=== PATIENT | male | born 1965 | race Caucasian/White ===

== ENCOUNTER 2018-05-19 20:02 | Observation (INO) | payer MEDICAID ==
[2018-05-19] MEDS ORDERED: METHYLPREDNISOLONE 125 MG INJ ONE (20:44)
[2018-05-19] MEDS ORDERED: ALBUTEROL 2.5 MG/3 ML NEB SOL ONE ×2 (20:44→23:03)
[2018-05-19] MEDS ORDERED: IPRATROPIUM BROM 0.5MG/2.5ML ONE (20:44)
[2018-05-19] MEDS ORDERED: Levofloxacin500mg IV 500 MG/100 ML BAG IV ONE (20:45)
[2018-05-19 21:04] LABS: Absolute Lymphocytes (CBC) 2.8 K/uL (0.7-4.9); Absolute Monocytes 0.7 K/uL (0.1-1.3); Absolute Neutrophil 4.7 K/uL (1.8-8.0); Basophils % 1.1 % (0-1.3); Eosinophils % 1.8 % (0-4.4); Hematocrit 42.5 % (39.6-49.0); Lymphocytes % 33.2 % (15.3-44.8); MCH 32.4 pg (27.0-35.0); MCV 94.4 fL (80-100); MPV 8.6 fL (7.6-11.3); Monocytes % 8.4 % (3.3-12.3); RBC Red Blood Cell Count 4.51 M/uL (4.33-5.43)
[2018-05-19 21:07] LABS: Protime INR 0.94
--- NOTE | 2018-05-19 21:23 | RAD REPORT ---
EXAM DESCRIPTION: RAD - Chest Single View - 05/19/2018 8:41 pm CLINICAL HISTORY: Cough, COPD COMPARISON: December 2016 TECHNIQUE: AP portable chest image was obtained 2037 hours . FINDINGS: No peripheral mass or consolidation. Granulomatous calcifications are present in the upper left lung field. Lung apices showed relative hyper lucencies suspicious for emphysema. Heart and vas culature are normal. No measurable pleural effusion and no pneumothorax. No acute bony abnormality se en. No acute aortic findings suspected. IMPRESSION: No acute cardiopulmonary process. Suspected emphysema change in each upper lung field.
[2018-05-19 21:25] LABS: ALT/SGPT 29 U/L (12-78); AST/SGOT 20 U/L (15-37); Alkaline Phosphatase 65 U/L (45-117); BUN Blood Urea Nitrogen 10 mg/dL (7-18); Bicarbonate 22 mmol/L (21-32); Bilirubin Direct < 0.1 mg/dL (0-0.2); Bilirubin Total 0.2 mg/dL (0.2-1.0); Glucose Level 94 mg/dL (74-106); Lipase 110 U/L (73-393); Magnesium 2.5 mg/dL (1.8-2.4); NT PRO-BNP 2860 pg/mL (<125); Potassium 3.8 mmol/L (3.5-5.1); Protein, Total 8.1 g/dL (6.4-8.2); Sodium Level 141 mmol/L (136-145); Troponin (Emerg Dept Use Only) < 0.02 ng/mL (0.0-0.045)
--- NOTE | 2018-05-19 22:21 | ER ---
Nurse's Notes [facility] Name: Roby Ortiz Age: 53 yrs Sex: Male : 1965 Arrival Date: 05/19/2018 Time: 20:03 Bed 14 Private MD: Diagnosis: Chest pain, unspecified;Chronic obstructive pulmonary disease with (acute) exacerbation Presentation: 05/19 20:05 Presenting complaint: Significant other states: Shortness of breath for the past 3 aj1 days. It started getting worse yesterday morning. States that he has been out of his albuterol for the past 5 days and now its starting to catch up with him, and now he is starting to have chest pain as well. Reports productive cough for the past 4 days, denies fever. Transition of care: patient was not received from another setting of care. Onset of symptoms was May 17, 2018. Risk Assessment: Do you want to hurt yourself or someone else? Patient reports no desire to harm self or others. Initial Sepsis Screen: Does the patient meet any 2 criteria? No. Patient's initial sepsis screen is negative. Does the patient have a suspected source of infection? No. Patient's initial sepsis screen is negative. Care prior to arrival: None. 20:05 Method Of Arrival: Wheelchair aj1 20:05 Acuity: ELAINE 3 aj1 Triage Assessment: 20:10 General: Appears in no apparent distress. uncomfortable, Behavior is cooperative, aj1 anxious. Pain: Complains of pain in chest Pain currently is 7 out of 10 on a pain scale. Neuro: Level of Consciousness is awake, alert, obeys commands. Cardiovascular: Reports chest pain, shortness of breath, Patient's skin is warm and dry. Respiratory: Airway is patent Respiratory effort is even, unlabored, Respiratory pattern is regular, symmetrical. Historical: - Allergies: 20:10 PENICILLINS; aj1 - Home Meds: 20:10 Lisinopril Oral [Active]; albuterol inhaler [Active]; Prednisone Oral [Active]; aspirin aj1 81 mg Oral chew 1 tab once daily [Active]; Benicar 5 mg Oral tab 2 tabs once daily [Active]; - PMHx: 20:10 COPD; Hypertension; Myocardial infarction; aj1 - Immunization history:: Flu vaccine is up to date. - Social history:: Smoking status: Patient/guardian denies using tobacco, Patient states that quit smoking but he has been hanging around people who are smoking. - Ebola Screening: : Patient denies travel to an Ebola-affected area in the 21 days before illness onset. - Family history:: not pertinent. Screenin:10 Abuse screen: Denies threats or abuse. Nutritional screening: No deficits noted. jb4 Tuberculosis screening: No symptoms or risk factors identified. Fall Risk None identified. Assessment: 20:10 General: Appears in no apparent distress. comfortable, Behavior is calm, cooperative, jb4 appropriate for age. Pain: Complains of pain in chest Pain does not radiate. Pain currently is 4 out of 10 on a pain scale. at worst was 5 out of 10 on a pain scale. Pain began 2-3 days ago. Neuro: Level of Consciousness is awake, alert, obeys commands, Oriented to person, place, time, situation. Cardiovascular: Heart tones S1 S2 present Patient's skin is warm and dry. Respiratory: Airway is patent Respiratory effort is even, labored, Respiratory pattern is regular, symmetrical, Breath sounds are diminished bilaterally. GI: No signs and/or symptoms were reported involving the gastrointestinal system. : No signs and/or symptoms were reported regarding the genitourinary system. EENT: No signs and/or symptoms were reported regarding the EENT system. Derm: Skin is intact, Skin is pink, warm \T\ dry. Musculoskeletal: Circulation, motion, and sensation intact. 21:00 Reassessment: Patient appears in no apparent distress at this time. Patient and/or jb4 family updated on plan of care and expected duration. Pain level reassessed. Patient is alert, oriented x 3, equal unlabored respirations, skin warm/dry/pink. 22:00 Reassessment: Patient appears in no apparent distress at this time. Patient and/or jb4 family updated on plan of care and expected duration. Pain level reassessed. Patient is alert, oriented x 3, equal unlabored respirations, skin warm/dry/pink. Patient states feeling better. 23:00 Reassessment: Patient appears in no apparent distress at this time. Patient and/or jb4 family updated on plan of care and expected duration. Pain level reassessed. Patient is alert, oriented x 3, equal unlabored respirations, skin warm/dry/pink. Patient states feeling better. 05/20 00:10 Reassessment: Patient appears in no apparent distress at this time. No changes from jb4 previously documented assessment. Patient and/or family updated on plan of care and expected duration. Pain level reassessed. Patient is alert, oriented x 3, equal unlabored respirations, skin warm/dry/pink. 00:19 General: Appears in no apparent distress. comfortable. Respiratory: Airway is patent jb4 Respiratory effort is even, unlabored, Respiratory pattern is regular, symmetrical, Breath sounds are clear bilaterally. 00:55 Reassessment: Patient appears in no apparent distress at this time. Patient and/or jb4 family updated on plan of care and expected duration. Pain level reassessed. Patient is alert, oriented x 3, equal unlabored respirations, skin warm/dry/pink. Patient states feeling better. Vital Signs: 05/19 20:10 BP 179 / 100; Pulse 102; Resp 20; Temp 97.0; Pulse Ox 99% on R/A; Weight 64.86 kg (R); aj1 Height 5 ft. 7 in. (170.18 cm) (R); Pain 7/10; 21:00 BP 141 / 94; Pulse 89; Resp 18; Pulse Ox 100% ; jb4 22:00 BP 169 / 98; Pulse 98; Resp 18; Pulse Ox 97% on R/A; jb4 23:00 BP 160 / 96; Pulse 99; Resp 18; Pulse Ox 98% on R/A; jb4 05/20 00:10 BP 161 / 92; Pulse 97; Resp 14; Pulse Ox 97% on R/A; jb4 00:30 BP 173 / 98; Pulse 89; Resp 18; Pulse Ox 98% on R/A; jb4 01:00 BP 168 / 98; Pulse 89; Resp 16; Pulse Ox 98% ; jb4 05/19 20:10 Body Mass Index 22.40 (64.86 kg, 170.18 cm) aj ED Course: 05/19 20:03 Patient arrived in ED. ds1 20:08 Triage completed. aj1 20:10 Arm band placed on Patient placed in an exam room. aj1 20:10 Patient has correct armband on for positive identification. Bed in low position. Call [facility] light in reach. Side rails up X 1. pit operator on. Pulse ox on. NIBP on. 20:10 Patient maintains SpO2 saturation greater than 95% on room air. jb4 20:20 Jovi Davis MD is Attending Physician. [facility] 20:26 Duke Brown, ROULA is Primary Nurse. jb4 20:40 X-ray completed. Portable x-ray completed in exam room. Patient tolerated procedure sg4 well. 20:41 XRAY Chest (1 view) In Process Unspecified. EDMS 21:34 EKG done, by ED staff, reviewed by Jovi Davis MD. ds4 22:06 Urine Culture Sent. ds4 22:20 Aby Mckeon MD is Hospitalizing Provider. [facility] 05/20 01:20 No provider procedures requiring assistance completed. Patient admitted, IV remains in jb4 place. Administered Medications: 05/19 21:04 Drug: Albuterol - atroVENT (3:1) (2.5 mg - 0.5 mg) 3 ml Route: Nebulizer; jb4 23:16 Follow up: Response: No adverse reaction jb4 21:04 Drug: SOLU-Medrol 125 mg Route: IVP; Site: right antecubital; jb4 23:19 Follow up: Response: No adverse reaction jb4 21:04 Drug: levofloxacin 500 mg Volume: 100 ml; Route: IVPB; Infused Over: 60 mins; Site: jb4 right antecubital; 22:05 Follow up: Response: No adverse reaction; IV Status: Completed infusion [facility] 22:13 CANCELLED (Duplicate Order): Albuterol 5 mg Inhalation once [facility] 22:13 CANCELLED (Duplicate Order): Lopressor (metoprolol TARTRATE) 50 mg PO once [facility] 23:00 Drug: predniSONE 40 mg Route: PO; jb4 23:42 Follow up: Response: No adverse reaction jb4 23:00 Drug: Albuterol 5 mg Route: Inhalation; jb4 23:42 Follow up: Response: No adverse reaction jb4 23:00 Drug: Aspirin 162 mg Route: PO; jb4 23:42 Follow up: Response: No adverse reaction jb4 23:00 Drug: Lopressor (metoprolol TARTRATE) 50 mg Route: PO; jb4 23:41 Follow up: Response: No adverse reaction jb4 23:00 Drug: Lovenox 1 mg/kg Route: Sub-Q; Site: right lower abdomen; jb4 23:41 Follow up: Response: No adverse reaction 4 23:00 Drug: Pepcid 20 mg Route: IVP; Site: right antecubital; jb4 23:41 Follow up: Response: No adverse reaction jb4 Outcome: 22:21 Decision to Hospitalize by Provider. chantal 05/20 01:20 Admitted to Tele accompanied by nurse, via wheelchair, room 427, with chart, Report jb4 called to ROULA Lacey Condition: stable Instructed on the need for admit, Demonstrated understanding of instructions. 01:21 Patient left the ED. jb4 Signatures: Dispatcher [employer] Viki Espinoza RN RN Jovi Shea MD MD cha Sanford, Demi ds1 Tunde Mcmillan ds4 Duke Brown RN RN jb4 Trena Douglas sg4 Corrections: (The following items were deleted from the chart) 05/19 23: 22:10 General: Appears in no apparent distress. comfortable, Behavior is calm, jb4 cooperative, appropriate for age, jb4 : 22:10 Pain: Complains of pain in chest Pain does not radiate. Pain currently is 4 out jb4 of 10 on a pain scale. at worst was 5 out of 10 on a pain scale. Pain began 2-3 days ago. jb4 : 22:10 Neuro: Level of Consciousness is awake, alert, obeys commands, Oriented to jb4 person, place, time, situation, jb4 : 22:10 Cardiovascular: Heart tones S1 S2 present Patient's skin is warm and dry. jb4 jb4 : 22:10 Respiratory: Airway is patent Respiratory effort is even, labored, Respiratory jb4 pattern is regular, symmetrical, Breath sounds are diminished bilaterally. jb4 : 22:10 GI: No signs and/or symptoms were reported involving the gastrointestinal system. jb4 jb4 : 22:10 : No signs and/or symptoms were reported regarding the genitourinary system. jb4jb4 : 22:10 EENT: No signs and/or symptoms were reported regarding the EENT system. jb4 jb4 :25 22:10 Derm: Skin is intact, Skin is pink, warm \T\ dry. jb4 jb4 :25 22:10 Musculoskeletal: Circulation, motion, and sensation intact. jb4 jb4
--- NOTE | 2018-05-19 22:22 | EDPHYS ---
Physician Documentation [facility] Name: Roby Ortiz Age: 53 yrs Sex: Male : 1965 Arrival Date: 05/19/2018 Time: 20:03 Bed 14 Private MD: ED Physician Jovi Davis HPI: 05/19 22:14 This 53 yrs old Male presents to ER via Wheelchair with complaints of Chest chantal Pain, Breathing Difficulty. 22:14 This 53 yrs old Male presents to ER via Wheelchair with complaints of Chest chantal Pain, Breathing Difficulty. 22:14 The patient or guardian reports chest pain that is located primarily in the substernal chantal area, anterior chest wall. Onset: just prior to arrival. The pain does not radiate. Associated signs and symptoms: Pertinent positives: cough, shortness of breath. The chest pain is described as a pressure, squeezing. Duration: The patient or guardian reports multiple episodes, with no pattern. Modifying factors: The symptoms are alleviated by nothing. the symptoms are aggravated by nothing. Severity of pain: At its worst the pain was mild in the emergency department the pain has resolved. Historical: - Allergies: 20:10 PENICILLINS; aj1 - Home Meds: 20:10 Lisinopril Oral [Active]; albuterol inhaler [Active]; Prednisone Oral [Active]; aspirin aj1 81 mg Oral chew 1 tab once daily [Active]; Benicar 5 mg Oral tab 2 tabs once daily [Active]; - PMHx: 20:10 COPD; Hypertension; Myocardial infarction; aj1 - Immunization history:: Flu vaccine is up to date. - Social history:: Smoking status: Patient/guardian denies using tobacco, Patient states that quit smoking but he has been hanging around people who are smoking. - Ebola Screening: : Patient denies travel to an Ebola-affected area in the 21 days before illness onset. - Family history:: not pertinent. ROS: 22:14 Constitutional: Negative for fever, chills, and weight loss, Eyes: Negative for injury, chantal pain, redness, and discharge, ENT: Negative for injury, pain, and discharge, Neck: Negative for injury, pain, and swelling, Abdomen/GI: Negative for abdominal pain, nausea, vomiting, diarrhea, and constipation, Back: Negative for injury and pain, : Negative for injury, bleeding, discharge, and swelling, MS/Extremity: Negative for injury and deformity, Skin: Negative for injury, rash, and discoloration, Neuro: Negative for headache, weakness, numbness, tingling, and seizure. 22:14 Cardiovascular: Positive for chest pain. 22:14 Respiratory: Positive for cough, shortness of breath, wheezing, expiratory. Exam: 22:14 Constitutional: This is a well developed, well nourished patient who is awake, alert, chantal and in no acute distress. Head/Face: Normocephalic, atraumatic. Eyes: Pupils equal round and reactive to light, extra-ocular motions intact. Lids and lashes normal. Conjunctiva and sclera are non-icteric and not injected. Cornea within normal limits. Periorbital areas with no swelling, redness, or edema. ENT: Nares patent. No nasal discharge, no septal abnormalities noted. Tympanic membranes are normal and external auditory canals are clear. Oropharynx with no redness, swelling, or masses, exudates, or evidence of obstruction, uvula midline. Mucous membranes moist. Neck: Trachea midline, no thyromegaly or masses palpated, and no cervical lymphadenopathy. Supple, full range of motion without nuchal rigidity, or vertebral point tenderness. No Meningismus. Chest/axilla: Normal chest wall appearance and motion. Nontender with no deformity. No lesions are appreciated. Cardiovascular: Regular rate and rhythm with a normal S1 and S2. No gallops, murmurs, or rubs. Normal PMI, no JVD. No pulse deficits. Abdomen/GI: Soft, non-tender, with normal bowel sounds. No distension or tympany. No guarding or rebound. No evidence of tenderness throughout. Back: No spinal tenderness. No costovertebral tenderness. Full range of motion. Male : Normal genitalia with no discharge or lesions. Skin: Warm, dry with normal turgor. Normal color with no rashes, no lesions, and no evidence of cellulitis. MS/ Extremity: Pulses equal, no cyanosis. Neurovascular intact. Full, normal range of motion. Neuro: Awake and alert, GCS 15, oriented to person, place, time, and situation. Cranial nerves II-XII grossly intact. Motor strength 5/5 in all extremities. Sensory grossly intact. Cerebellar exam normal. Normal gait. Psych: Awake, alert, with orientation to person, place and time. Behavior, mood, and affect are within normal limits. 22:14 Respiratory: the patient does not display signs of respiratory distress, Respirations: normal, no acute changes, prolonged exhalation, that is mild, Breath sounds: rhonchi, that are mild, Respiratory rate: 20 Vital Signs: 20:10 BP 179 / 100; Pulse 102; Resp 20; Temp 97.0; Pulse Ox 99% on R/A; Weight 64.86 kg (R); aj1 Height 5 ft. 7 in. (170.18 cm) (R); Pain 7/10; 21:00 BP 141 / 94; Pulse 89; Resp 18; Pulse Ox 100% ; jb4 22:00 BP 169 / 98; Pulse 98; Resp 18; Pulse Ox 97% on R/A; jb4 23:00 BP 160 / 96; Pulse 99; Resp 18; Pulse Ox 98% on R/A; jb4 05/20 00:10 BP 161 / 92; Pulse 97; Resp 14; Pulse Ox 97% on R/A; jb4 00:30 BP 173 / 98; Pulse 89; Resp 18; Pulse Ox 98% on R/A; jb4 01:00 BP 168 / 98; Pulse 89; Resp 16; Pulse Ox 98% ; jb4 05/19 20:10 Body Mass Index 22.40 (64.86 kg, 170.18 cm) [facility] MDM: 05/19 20:20 Patient medically screened. [facility] 22:19 Data reviewed: vital signs, nurses notes, lab test result(s), EKG, radiologic studies, [facility] CT scan, plain films. 05/19 20:23 Order name: Basic Metabolic Panel; Complete Time: 21:44 chantal 05/19 20:23 Order name: CBC with Diff; Complete Time: 21:44 chantal 05/19 20:23 Order name: LFT's; Complete Time: 21:44 chantal 05/19 20:23 Order name: Magnesium; Complete Time: 21:44 chantal 05/19 20:23 Order name: NT PRO-BNP; Complete Time: 21:44 [facility] 05/19 20:23 Order name: PT-INR; Complete Time: 21:44 [place] 05/19 20:23 Order name: Troponin (emerg Dept Use Only); Complete Time: 21:44 [facility] 05/19 20:23 Order name: XRAY Chest (1 view); Complete Time: 21:44 [facility] 05/19 20:23 Order name: Blood Culture Adult (2) [facility] 05/19 20:23 Order name: Lipase; Complete Time: 21:44 [facility] 05/19 20:24 Order name: Urine Culture [facility] 05/19 22:07 Order name: Urine Dipstick--Ancillary (enter results) ds 05/20 01:17 Order name: Troponin I [facility] 05/19 20:23 Order name: EKG; Complete Time: 20:24 [facility] 05/19 20:23 Order name: Cardiac monitoring; Complete Time: 21:04 [facility] 05/19 20:23 Order name: EKG - Nurse/Tech; Complete Time: 21:05 [facility] 05/19 20:23 Order name: IV Saline Lock; Complete Time: 21:05 [facility] 05/19 20:23 Order name: Labs collected and sent; Complete Time: 21:05 [facility] 05/19 22:24 Order name: CONS Physician Consult [facility] 05/19 20:23 Order name: O2 Per Protocol; Complete Time: 21:05 [facility] 05/19 20:23 Order name: O2 Sat Monitoring; Complete Time: 21:05 [facility] 05/19 20:24 Order name: Urine Dipstick-Ancillary (obtain specimen); Complete Time: 22:06 [facility] Administered Medications: 21:04 Drug: Albuterol - atroVENT (3:1) (2.5 mg - 0.5 mg) 3 ml Route: Nebulizer; jb4 23:16 Follow up: Response: No adverse reaction [facility] 21:04 Drug: SOLU-Medrol 125 mg Route: IVP; Site: right antecubital; jb4 23:19 Follow up: Response: No adverse reaction [facility] 21:04 Drug: levofloxacin 500 mg Volume: 100 ml; Route: IVPB; Infused Over: 60 mins; Site: jb4 right antecubital; 22:05 Follow up: Response: No adverse reaction; IV Status: Completed infusion [facility] 22:13 CANCELLED (Duplicate Order): Albuterol 5 mg Inhalation once [facility] 22:13 CANCELLED (Duplicate Order): Lopressor (metoprolol TARTRATE) 50 mg PO once [facility] 23:00 Drug: predniSONE 40 mg Route: PO; jb4 23:42 Follow up: Response: No adverse reaction [facility] 23:00 Drug: Albuterol 5 mg Route: Inhalation; jb4 23:42 Follow up: Response: No adverse reaction jb4 23:00 Drug: Aspirin 162 mg Route: PO; jb4 23:42 Follow up: Response: No adverse reaction jb4 23:00 Drug: Lopressor (metoprolol TARTRATE) 50 mg Route: PO; jb4 23:41 Follow up: Response: No adverse reaction jb4 23:00 Drug: Lovenox 1 mg/kg Route: Sub-Q; Site: right lower abdomen; jb4 23:41 Follow up: Response: No adverse reaction jb4 23:00 Drug: Pepcid 20 mg Route: IVP; Site: right antecubital; jb4 23:41 Follow up: Response: No adverse reaction jb4 Disposition: 05/19/18 22:21 Hospitalization ordered by Aby Mckeon for Observation. Preliminary diagnosis are Chest pain, unspecified, Chronic obstructive pulmonary disease with (acute) exacerbation. - Bed requested for Telemetry/MedSurg (observation). - Status is Observation. jb4 - Condition is Fair. - Problem is new. - Symptoms have improved. UTI on Admission? No Signatures: Dispatcher [employer] EDMS Viki Lucia RN RN aj1 Jovi Davis MD MD cha Bryson, James, RN RN jb4 Tej Stephenson mw2 Corrections: (The following items were deleted from the chart) 22:13 22:09 Albuterol 5 mg Inhalation once ordered. [facility] 22:13 22:13 Lopressor (metoprolol TARTRATE) 50 mg PO once ordered. [facility] 22:37 22:21 Hospitalization Ordered by Aby Mckeon MD for Observation. Preliminary mw2 diagnosis is Chest pain, unspecified; Chronic obstructive pulmonary disease with (acute) exacerbation. Bed requested for Telemetry/MedSurg (observation). Status is Observation. Condition is Fair. Problem is new. Symptoms have improved. UTI on Admission? No. chantal 05/20 01:21 05/19 22:37 05/19/2018 22:21 Hospitalization Ordered by Aby Mckeon MD for jb4 Observation. Preliminary diagnosis is Chest pain, unspecified; Chronic obstructive pulmonary disease with (acute) exacerbation. Bed requested for Telemetry/MedSurg (observation). Status is Observation. Condition is Fair. Problem is new. Symptoms have improved. UTI on Admission? No. mw2
[2018-05-19 22:25] LABS: Urine Blood NEGATIVE (NEG); Urine Glucose NEGATIVE (NEG); Urine Protein NEGATIVE (NEG); Urine Specific Gravity 1.005 (1.005-1.030); Urine pH 5.5 (5.0-7.0)
[2018-05-19] MEDS ORDERED: METOPROLOL TAR 25 MG TAB ONE (23:03)
[2018-05-19] MEDS ORDERED: ASPIRIN 81 MG CHEWABLE TABLET ONE (23:03)
[2018-05-19] MEDS ORDERED: predniSONE 20 MG TAB ONE (23:03)
[2018-05-19] MEDS ORDERED: FAMOTIDINE 20 MG/2 ML VIAL IV ONE (23:04)
[2018-05-19] MEDS ORDERED: ENOXAPARIN 60 MG/0.6 ML SQ ONE (23:04)
[2018-05-20] MEDS ORDERED: ACETAMINOPHEN 500 MG TAB PO PRN (00:21)
[2018-05-20] MEDS ORDERED: ONDANSETRON 4 MG/2 ML VIAL IV PRN (00:21)
[2018-05-20 01:28] VITALS: BMI 21.4
[2018-05-20] MEDS ORDERED: ALBUTEROL 2.5 MG/3 ML NEB SOL NEB PRN (05:36)
[2018-05-20] MEDS ORDERED: IPRATROPIUM BROM 0.5MG/2.5ML NEB PRN (05:36)
--- NOTE | 2018-05-20 05:59 | P.HP ---
Certification for Inpatient Patient admitted to: Observation With expected LOS: <2 Midnights Practitioner: I am a practitioner with admitting privileges, knowledge of patient current condition, hospital course, and medical plan of care. Services: Services provided to patient in accordance with Admission requirements found in Title 42 Section 412.3 of the Code of Federal Regulations Patient History Date of Service: 05/19/18 Reason for admission: Chest pain, shortness of breath History of Present Illness: Mr Ortiz is a 53-year-old male, with history of COPD, hypertension, CVA, legally blind, who came to ER complaining of progressive shortness of breath for the last 3 days. He stated that has been running out of his inhalers, who was unable to it. He also has been not taking his blood pressure for the last few days. He is complaining of chest pain, in sternal area, burning light, 5/ 10 of intensity, lasting for 7 min. The pain was not associated with nausea, vomiting, or palpitation. Shows no acute changes. Lab work remarkable for normal WBC, patient troponin negative. Patient is also complaining of left hand numbness, associated with left neck pain, which is common go for several months. Allergies No Known Allergies Allergy (Unverified 05/20/18 02:54) Home medications list reviewed: Yes Home Medications: Aspirin [Children's Aspirin] 81 mg PO DAILY 11/20/16 Lisinopril 1 tab PO DAILY 05/20/18 - Past Medical/Surgical History Has patient received pneumonia vaccine in the past: Yes Diabetic: No -: glaucoma -: HTN -: COPD -: Stroke x 4 -: Atrial Fibrillation -: bilateral eye surgery - Family History Mother -: Cancer Notes: Lymphoma, Leukemia Father -: Cancer Notes: Throat - Social History Smoking Status: Former smoker Alcohol use: Yes CD- Drugs: No Caffeine use: Yes Place of Residence: Home Review of Systems 10-point ROS is otherwise unremarkable Physical Examination - Vital Signs Temperature: 98.6 F Blood Pressure: 159/82 Pulse: 84 Respirations: 18 Pulse Ox (%): 96 - Physical Exam General: Alert, In no apparent distress HEENT: Atraumatic, PERRLA, Mucous membr. moist/pink, EOMI, Sclerae nonicteric Neck: Supple, 2+ carotid pulse no bruit, No LAD, Without JVD or thyroid abnormality Respiratory: Diminished, Other (coarse bilateral) Cardiovascular: Regular rate/rhythm, Normal S1 S2 Gastrointestinal: Normal bowel sounds, No tenderness Musculoskeletal: Tenderness (Chest pain tenderness to palpation, similar to complaining pain) Integumentary: No rashes Neurological: Normal speech, Normal strength at 5/5 x4 extr, Normal tone, Normal affect Lymphatics: No axilla or inguinal lymphadenopathy - Studies Laboratory Data (last 24 hrs) 05/19/18 20:40: PT 11.1, INR 0.94 05/19/18 20:40: WBC 8.4, Hgb 14.6, Hct 42.5, Plt Count 304 05/19/18 20:40: Sodium 141, Potassium 3.8, BUN 10, Creatinine 1.00, Glucose 94, Magnesium 2.5 H, Total Bilirubin 0.2, AST 20, ALT 29, Alkaline Phosphatase 65, Lipase 110 Assessment and Plan - Problems (Diagnosis) (1) Hand numbness Current Visit: Yes Status: Acute (2) Chest pain Onset Date: 11/20/16 Current Visit: No Status: Acute Qualifiers: Chest pain type: chest pain on breathing Qualified Code(s): R07.1 - Chest pain on breathing; R07.81 - Pleurodynia (3) Essential (primary) hypertension Onset Date: 11/20/16 Current Visit: No Status: Acute - Plan The patient will be admitted to the hospital due to atypical chest pain, COPD on fixed laceration due to a lack of medication. Chest-x-ray showed not acute abnormality. Will resume breathing treatments, will order serial cardiac enzymes and EKG. Consult Cardiology. Will order C-spine MRI to evaluate his recurrent left hand numbness. - Advance Directives Does patient have a Living Will: Yes Does patient have a Durable POA for Healthcare: Yes - Code Status/Comfort Care Code Status Assessed: Yes Code Status: Full Code
[2018-05-20 06:21] LABS: Urine Appearance CLEAR; Urine Bilirubin NEGATIVE (NEG); Urine Blood NEGATIVE (NEG); Urine Color YELLOW; Urine Glucose NEGATIVE (NEG); Urine Protein TRACE (NEG); Urine Urobilinogen 0.2 mg/dL (0.2-1.0)
[2018-05-20 06:23] LABS: Urine Microscopic Reflex ORDER UMIC
[2018-05-20 06:45] LABS: Urine Bacteria <20 /HPF (NONE SEEN); Urine Culture Reflex Order NOT NEEDED; Urine Mucus 1+ /HPF (NONE SEEN); Urine RBC <5 /HPF (NONE SEEN)
[2018-05-20 06:52] LABS: Potassium 4.5 mmol/L (3.5-5.1)
--- NOTE | 2018-05-20 07:28 | EKG ---
Test Date: 2018-05-19 Test Time: 20:50:14 [employer] Customer Experience Specialist: SIRENA MEASUREMENT RESULTS: Intervals: Rate: 84 CT: 122 QRSD: 96 QT: 388 QTc: 458 [place]: P: 73 CT: 122 QRS: 4 T: 39 INTERPRETIVE STATEMENTS: Normal sinus rhythm Nonspecific T wave abnormality Abnormal ECG Compared to ECG 01/17/2017 15:09:09 T-wave abnormality now present Electronically Signed On 05-20-18 07:27:33 CDT by Omer Braga
[2018-05-20] MEDS: ENOXAPARIN 40 MG/0.4 ML SQ SCH (08:38)
[2018-05-20] MEDS: ASPIRIN 81 MG CHEWABLE TABLET PO SCH (08:42)
--- NOTE | 2018-05-20 08:46 | RAD REPORT ---
EXAM DESCRIPTION: MRI - C Spine W/Wo Cont - 05/20/2018 8:00 am CLINICAL HISTORY: Left upper extremity radiculopathy COMPARISON: None. TECHNIQUE: Sagittal T1-weighted, T2-weighted and T2-FLAIR sequences as well as axial T2 medic sequen ce obtained. Sagittal and axial post contrast T1-weighted images were obtained following 14 ml of Gd contrast material. FINDINGS: Cervical bodies are normal in height. There is a very slight retrolisthesis of C5 on C6. M inimal scattered fatty marrow changes are present. No marrow edema or marrow replacing process. No pa raspinal mass. Cerebellar tonsils and mid-line skull base show no suspicious finding. No significant finding at the C1 and C2 levels. C2-3 level: Midline disc bulge changes attenuate the anterior subarachnoid space. Midline canal diame ter is reduced to 10 mm. There is minimal posterior ligamentous thickening. No foraminal stenosis. C3-4 level: Midline and left parasagittal disc bulge and endplate spurring changes partially attenuat e the anterior subarachnoid space. Midline canal diameter is 10-2011 mm. Left facet hypertrophy brandt es are present. Mild left foraminal bony encroachment. No significant central spinal stenosis. C4-5 level: Minimal disc bulge and endplate spurring partially attenuating the anterior subarachnoid space. Midline canal diameter is 10 mm. No significant foraminal encroachment. C5-6 level: Disc is thinned and desiccated. There is a large left central disc herniation contacting and flattening the cord. Herniated disc material extends above and below the disc level. Disc masses approximately 7 mm CC x 5 mm AP x 10 mm TR. Canal is stenotic to 8 mm. Mild to moderate left foramina l encroachment is present from disc bulge and endplate spurring. Significant right foraminal stenosis is present from uncovertebral joint hypertrophy and right facet hypertrophy. C6-7 level: Disc is thinned and desiccated. Broad-based bulging of disc material with endplate spurri ng across the central canal and into each exit foramen. Anterior subarachnoid space is narrowed. Midl ine canal diameter is 10 mm. Disc bulge and endplate spurring changes cause significant left foramina l stenosis and moderate right foraminal stenosis. C7-T1 level: No significant findings. No cord signal abnormality. No expansile change. No abnormal enhancement on the post-contrast images. IMPRESSION: C5-6 large left-sided disc herniation causing cord flattening and central spinal stenosi s at 8 mm. C5-6 shows up to moderate left foraminal stenosis with even more significant right foraminal stenosis . C6-7 disc bulge and endplate spurring changes along with uncovertebral joint and facet hypertrophy. C anal is 10 mm. There is significant left and moderate right foraminal stenosis. Cervical spondylosis is present from C2- C5 with borderline or mild central spinal stenosis. Foramina l encroachment changes are detailed in the body of the report. Cord is flattened at multiple sites but no true cord signal abnormality and no enhancement abnormalit y.
[2018-05-20] MEDS ORDERED: LISINOPRIL 20 MG TAB PO SCH (09:00)
[2018-05-20] MEDS ORDERED: HYDRALAZINE HCL 20 MG/ML VIAL IV ONE (11:09)
[2018-05-20] MEDS ORDERED: ALBUTEROL 2.5 MG/3 ML NEB SOL IH PRN (13:49)
--- NOTE | 2018-05-20 16:27 | P.PN ---
Subjective Date of Service: 05/20/18 Chief Complaint: Chest pain, shortness of breath Patient seen and examined at bedside. No family at bedside. Case discussed with nursing staff. Patient still complains of left-sided chest pain, and left hand numbness and tingling, though it has improved from admission. Denies any radiation of the pain, any alleviation of our exacerbating factors. Denies any shortness of breath, nausea, vomiting, headache, vision changes, dizziness or lightheadedness. Review of Systems As noted above Physical Examination - Vital Signs Temperature: 99.1 F Blood Pressure: 177/94 Pulse: 89 Respirations: 18 Pulse Ox (%): 100 - Physical Exam General: Alert, In no apparent distress HEENT: Atraumatic, PERRLA, EOMI Neck: Supple, JVD not distended Respiratory: Clear to auscultation bilaterally, Normal air movement Cardiovascular: Regular rate/rhythm, Normal S1 S2 Gastrointestinal: Normal bowel sounds, No tenderness Musculoskeletal: Tenderness (To palpation on left side of the chest (point tenderness)) Integumentary: No rashes Neurological: Normal speech, Normal tone, Normal affect, Abnormal sensation ( Numbness/tingling on wound left upper extremity, starting from rest down to the fingers.) Lymphatics: No axilla or inguinal lymphadenopathy - Studies Laboratory Data (last 24 hrs) 05/19/18 20:40: PT 11.1, INR 0.94 05/19/18 20:40: WBC 8.4, Hgb 14.6, Hct 42.5, Plt Count 304 05/19/18 20:40: Sodium 141, Potassium 3.8, BUN 10, Creatinine 1.00, Glucose 94, Magnesium 2.5 H, Total Bilirubin 0.2, AST 20, ALT 29, Alkaline Phosphatase 65, Lipase 110 Assessment And Plan - Current Problems (Diagnosis) (1) Chest pain Onset Date: 05/20/18 Current Visit: Yes Status: Acute Plan: Patient was admitted for atypical chest pain. Differential diagnosis includes cardiac related versus musculoskeletal. Musculoskeletal pain seems more likely as patient does have point tenderness on physical exam. Continue to trend troponin, EKG Cardiology consulted. Recommendations appreciated (2) Hand numbness Onset Date: 05/20/18 Current Visit: Yes Status: Acute Plan: Patient with consistent hand numbness on the left side. MRI of the C-spine was done seems to have multiple abnormalities on there that could potentially be addressed as an outpatient but as patient also has a history of history of stroke x4, will obtain MRI/MRA of head/neck. (3) Essential (primary) hypertension Onset Date: 11/20/16 Current Visit: No Status: Acute Plan: Patient restarted on lisinopril, which is his home medication. Will add p.r.n. hydralazine if needed. - Plan Pending MRA/MRI of head/neck. If imaging normal, can be discharged home tomorrow.
--- NOTE | 2018-05-20 18:55 | RAD REPORT ---
EXAM DESCRIPTION: MRI - Brain Wo Cont - 05/20/2018 5:42 pm CLINICAL HISTORY: Left arm numbness COMPARISON: 2016 CT TECHNIQUE: Axial, sagittal, and coronal magnetic images of the brain were obtained. Contrast was not requested FINDINGS: No significant abnormal signal is present within the brain. Diffusion-weighted/ADC mapping does not reveal evidence of acute infarction. The ventricles are normal caliber. An extra-axial fluid collection is not present. Abnormal signal within the right lobe likely is a chr onic abnormality The sinuses and mastoids are clear. IMPRESSION: No acute abnormality is displayed
--- NOTE | 2018-05-20 19:03 | RAD REPORT ---
EXAM DESCRIPTION: MRI - MRA Head Wo Cont - 05/20/2018 5:42 pm CLINICAL HISTORY: Left arm numbness COMPARISON: None. TECHNIQUE: Magnetic resonance angiogram of the head was performed. 3D MIPS reconstruction performed FINDINGS: The visualized anterior cerebral, right middle cerebral, posterior cerebral, basilar and d istal internal carotid arteries do not demonstrate a significant stenosis. Left middle cerebral artery does not demonstrate signal. An aneurysm is not seen IMPRESSION: No signal within the left middle cerebral artery. Given that the MRI brain does not demo nstrate an acute abnormality in the left MCA distribution this likely is a chronic occlusion
[2018-05-20] MEDS: LISINOPRIL 20 MG TAB PO SCH (20:23)
[2018-05-21] MEDS: ENOXAPARIN 40 MG/0.4 ML SQ SCH (08:19)
[2018-05-21] MEDS: ASPIRIN 81 MG CHEWABLE TABLET PO SCH (08:19)
[2018-05-21] MEDS: LISINOPRIL 20 MG TAB PO SCH (08:19)
[2018-05-21 16:26] VITALS: TEMP 98.7
[2018-05-21 16:52] VITALS: BP 156/88
[2018-05-21 17:10] VITALS: O2SAT 97
--- NOTE | 2018-05-22 16:46 | DS ---
Date of Discharge: 05/21/2018 Discharge Diagnoses: 1.Left shoulder pain. 2.Left hand numbness. 3.Chest pain, rule out myocardial infarction. Musculoskeletal mostly. 4.Hypertension. 5.History of recurrent cerebrovascular accident. Procedure: Brain MRI done on admission was negative. Cervical spine MRI done on the showed ext ensive abnormalities in C5-C6, left disk herniation, could include flattening and central spinal sten osis at 8 mm. C5-C6 showed moderate left foraminal stenosis with even more significant right foramin al stenosis. C6-C7 showed disk bulge and spurring changes at multiple sites, but no true cord signal abnormalities. MRA done of the brain on the showed no signal within the left middle cerebral artery, which can mean chronic occlusion of the left MCA. History Of Present Illness: Please refer to admission note. Hospital Course: Initially, the patient presented with history of 3 days of shortness of breath and left-sided chest pain, which apparently was later on characterized more like musculoskeletal. In the ER, the patient was evaluated and cardiac enzymes were negative. MRI of the brain was negative as w ell. But given his left arm numbness, he had cervical MRI, which showed some spinal cord flattening and compression. MRA showed no signal at the left middle cerebral artery, which indicated chronic oc clusion. The patient needed Neurology consult, but he did not want to wait until next day and he wan gracie to be discharged. So, I advised him strongly to see Neurology as soon as possible on Wednesday. We will give phone number to call. The patient advised to come back immediately if he is to have any w eakness, lightheaded, headache, blurred vision, numbness in any of his extremities, new numbness or w orsening of his current numbness. He was advised to be on aspirin daily. We will to resume home med ication. He is need to see primary care physician this week. The patient understood the risk of samuel rologic damage if he does not see Neurology as outpatient this week. He stated that he had Medicare and he will be able to see any physician in town I think as we let him go today. I will dispense 30 tablets of Tylenol No. 3 for p.r.n. pain medication for his left shoulder. [facility] His cardiac enzymes were negative below 0.02, but I will still suggest to do a stress test and follow up with primary care physician about that. Stress test will be ordered on a prescription pad and the patient will come to the hospital tomorrow to have it done. Discharge Condition: Stable. Discharged Diet: Cardiac. Discharge Followup: Follow up with primary care physician this week. Follow up with Neurology on Mo nday. He will come back to emergency room immediately with any neurologic symptoms. Discharge Medications: Same as admission medications. Please see list in the computer. We added as pirin 81 mg once a day and Tylenol No. 3 one tablet every 6 hours p.r.n. pain for the shoulder. Discharge Physical Examination: Vital Signs: Blood pressure is 156/88, respiratory rate 18, pulse 9 2, temperature 98.7. General: The patient is alert and oriented x3. Does not look in any distress. HEENT: Atraumatic, normocephalic. PERRLA. Oral mucosa is moist. Neck: Supple. No JVD. No carotid bruits. Chest: Clear to auscultation. Good air entry. Heart: Regular rate and rhythm. S1, S2 normal. No gallop or murmur. Abdomen: Soft, nontender. No masses. No hepatosplenomegaly. Positive bowel sounds. Extremities: No clubbing, cyanosis, or edema. No calf tenderness. Neurologic: Grossly intact. Cranial nerve exam 2 through 12 intact. Normal sensation. Normal refl exes. Normal muscle strength. Discussed with the patient and his . MARLENE Voice ID: [id number] Report ID: [id number]
--- NOTE | 2018-05-23 02:55 | CON ---
Date of Consultation: 05/20/[address] Lemus on 05/19/2018 for chest pain and COPD. I saw the patient on 05/20/2018. History Of Present Illness: Mr. Ortiz is 53; has a history of COPD, hypertension, possible coronar y artery disease, not documented. He had a normal echo in October of 2016, normal Lexiscan in October of 2016. His chest pain was left-sided, lateral, sharp, stabbing, nonradiating, nonexertional. Allergies: NONE. Review of Systems: Negative. Social History: Negative. Family History: Negative. Medications: Include aspirin, lisinopril, Benicar, prednisone, and inhalers. Physical Examination: Vital Signs: His vital signs were stable. He was afebrile. HEENT: Negative. Neck: Supple without any bruit, lymphadenopathy, JVD, or thyromegaly. Chest: Clear to auscultation and percussion. Cardiac exam: Revealed a regular rhythm and rate without any murmurs, gallops, or rubs. Abdomen: Benign. Extremities: Revealed no clubbing, cyanosis, or edema. Diagnostic Data: Chest x-ray was negative. EKG was negative. BNP was 2860. Impression And Plan: 1.Atypical chest pain, probably pleuritic. 2.Hypertension. 3.Chronic obstructive pulmonary disease. 4.Elevated BNP, probably secondary to chronic obstructive pulmonary disease. The patient has had ne gative workup about a year and half ago. He has an MRI of the cervical spine pending which may expla in his symptoms from cervical spondylosis. From a cardiac standpoint, I am not too concerned about h is symptoms. I think he needs to have an outpatient stress test to document presence of any coronary artery disease. He can go home whenever it is okay with Dr. Lemus. LEIDY/IVAN Voice ID: [id number] Report ID: [id number]
== END 2018-05-21 17:36 | disposition home or self-care (01) ==
LOC: ER 20:02 → ERHOLD 22:22 → 4TH 05-20 00:59
PROVIDERS: ADMIT Internal Medicine; ATTEND Internal Medicine
DX: M25.512 Pain in left shoulder (principal); R20.0 Anesthesia of skin; R07.9 Chest pain, unspecified; I10 Essential (primary) hypertension; J44.9 Chronic obstructive pulmonary disease, unspecified; I48.91 Unspecified atrial fibrillation; H54.8 Legal blindness, as defined in USA; Z79.82 Long term (current) use of aspirin; Z86.73 Personal history of transient ischemic attack (TIA), and cerebral infarction without residual deficits
CPT/HCPCS: 36415; 70544; 70551; 71045; 72156; 80048; 80061; 80076; 81003; 81015; 83690; 83735; 83880; 84484; 85025; 85610; 87040; 87086; 87088; 93005; 94640; 96365; 96372; 96375; 99285; A9577; G0378; J0360; J1650; J2930; J7512

== ENCOUNTER 2018-09-13 13:05 | Inpatient (IN) | payer MEDICAID ==
[2018-09-13] MEDS ORDERED: ALBUTEROL 2.5 MG/3 ML NEB SOL ONE (13:32)
[2018-09-13] MEDS ORDERED: IPRATROPIUM BROM 0.5MG/2.5ML ONE (13:32)
[2018-09-13] MEDS ORDERED: DEXAMETHASONE 4 MG/ML VIAL ONE (13:37)
[2018-09-13] MEDS ORDERED: Levofloxacin 750mg IV 0 MG/0 ML BAG IV ONE (13:37)
[2018-09-13] MEDS ORDERED: FAMOTIDINE 20 MG/2 ML VIAL IV ONE (13:37)
[2018-09-13] MEDS ORDERED: NA CHLORIDE 0.9% 1,000 ML ONE (13:37)
[2018-09-13] MEDS ORDERED: METHYLPREDNISOLONE 125 MG INJ ONE (13:37)
[2018-09-13] MEDS ORDERED: Levofloxacin500mg IV 500 MG/100 ML BAG IV ONE (13:42)
[2018-09-13 14:02] LABS: Absolute Lymphocytes (CBC) 2.2 K/uL (0.7-4.9); Absolute Monocytes 0.8 K/uL (0.1-1.3); Absolute Neutrophil 5.3 K/uL (1.8-8.0); Basophils % 1.2 % (0-1.3); Hematocrit 41.5 % (39.6-49.0); Lymphocytes % 26.1 % (15.3-44.8); MPV 9.6 fL (7.6-11.3); Monocytes % 9.6 % (3.3-12.3); RBC Red Blood Cell Count 4.43 M/uL (4.33-5.43)
[2018-09-13 14:13] LABS: Protime INR 0.94
--- NOTE | 2018-09-13 14:15 | RAD REPORT ---
EXAM DESCRIPTION: RAD - Chest Single View - 09/13/2018 2:01 pm CLINICAL HISTORY: Cough;COPD Chest pain. COMPARISON: Chest Single View dated 05/19/2018; Chest Single View dated 01/17/2017; Chest Single View dated 11/19/2016; CHEST PA AND LAT 2 VIEW dated 01/02/2011 FINDINGS: Portable technique limits examination quality. Poorly defined lung opacities are present, greatest in the left lung base, suspicious for developing pneumonia. Trace pleural fluid is suspected. The heart is normal in size. No displaced fractures. IMPRESSION: Developing left lower lobe pneumonia.
--- NOTE | 2018-09-13 14:22 | EDPHYS ---
Physician Documentation [facility] Name: Roby Ortiz Age: 53 yrs Sex: Male : 1965 Arrival Date: 09/13/2018 Time: 13:06 Bed 7 Private MD: ED Physician Jovi Davis HPI: 09/13 14:17 This 53 yrs old Male presents to ER via Wheelchair with complaints of chantal Breathing Difficulty, Chest Pain. 14:17 The patient has shortness of breath at rest, with light activity. Onset: The chantal symptoms/episode began/occurred 3 day(s) ago. Duration: The symptoms are continuous, and are unchanged since they started. The patient's shortness of breath is aggravated by nothing, is alleviated by nothing. Associated signs and symptoms: The patient has no apparent associated signs or symptoms. Severity of symptoms: At their worst the symptoms were moderate in the emergency department the symptoms are unchanged. The patient has not experienced similar symptoms in the past. Historical: - Allergies: 13:11 PENICILLINS; hb - PMHx: 13:11 COPD; Hypertension; Myocardial infarction; hb - Immunization history:: Adult Immunizations up to date. - Social history:: Smoking status: Patient uses tobacco products, smokes one-half pack cigarettes per day, Smoking status: Patient uses tobacco products, Pt stated that he smoked 4 ppd and has only had 3 cigarettes' this week, Patient uses alcohol, on a daily basis. - Ebola Screening: : No symptoms or risks identified at this time. ROS: 14:18 Constitutional: Negative for fever, chills, and weight loss, Eyes: Negative for injury, chantal pain, redness, and discharge, ENT: Negative for injury, pain, and discharge, Neck: Negative for injury, pain, and swelling, Abdomen/GI: Negative for abdominal pain, nausea, vomiting, diarrhea, and constipation, Back: Negative for injury and pain, : Negative for injury, bleeding, discharge, and swelling, MS/Extremity: Negative for injury and deformity, Skin: Negative for injury, rash, and discoloration, Neuro: Negative for headache, weakness, numbness, tingling, and seizure, Psych: Negative for depression, anxiety, suicide ideation, homicidal ideation, and hallucinations, Allergy/Immunology: Negative for hives, rash, and allergies, Endocrine: Negative for neck swelling, polydipsia, polyuria, polyphagia, and marked weight changes, Hematologic/Lymphatic: Negative for swollen nodes, abnormal bleeding, and unusual bruising. 14:18 Cardiovascular: Positive for chest pain. 14:18 Respiratory: Positive for cough, shortness of breath, wheezing, inspiratory, expiratory. Exam: 14:18 Constitutional: This is a well developed, well nourished patient who is awake, alert, chantal and in no acute distress. Head/Face: Normocephalic, atraumatic. Eyes: Pupils equal round and reactive to light, extra-ocular motions intact. Lids and lashes normal. Conjunctiva and sclera are non-icteric and not injected. Cornea within normal limits. Periorbital areas with no swelling, redness, or edema. ENT: Nares patent. No nasal discharge, no septal abnormalities noted. Tympanic membranes are normal and external auditory canals are clear. Oropharynx with no redness, swelling, or masses, exudates, or evidence of obstruction, uvula midline. Mucous membranes moist. Neck: Trachea midline, no thyromegaly or masses palpated, and no cervical lymphadenopathy. Supple, full range of motion without nuchal rigidity, or vertebral point tenderness. No Meningismus. Chest/axilla: Normal chest wall appearance and motion. Nontender with no deformity. No lesions are appreciated. Cardiovascular: Regular rate and rhythm with a normal S1 and S2. No gallops, murmurs, or rubs. Normal PMI, no JVD. No pulse deficits. Abdomen/GI: Soft, non-tender, with normal bowel sounds. No distension or tympany. No guarding or rebound. No evidence of tenderness throughout. Back: No spinal tenderness. No costovertebral tenderness. Full range of motion. Male : Normal genitalia with no discharge or lesions. Skin: Warm, dry with normal turgor. Normal color with no rashes, no lesions, and no evidence of cellulitis. MS/ Extremity: Pulses equal, no cyanosis. Neurovascular intact. Full, normal range of motion. Neuro: Awake and alert, GCS 15, oriented to person, place, time, and situation. Cranial nerves II-XII grossly intact. Motor strength 5/5 in all extremities. Sensory grossly intact. Cerebellar exam normal. Normal gait. Psych: Awake, alert, with orientation to person, place and time. Behavior, mood, and affect are within normal limits. 14:18 Respiratory: mild respiratory distress is noted, moderate respiratory distress is noted, Respirations: normal, Breath sounds: bronchial sounds, decreased breath sounds, rhonchi, wheezing: inspiratory expiratory 14:18 Musculoskeletal/extremity: DVT Exam: No signs of deep vein thrombosis. no pain, no swelling, no tenderness, negative Homans' sign noted on exam, no appreciated bluish discoloration, no erythema, no increased warmth. Vital Signs: 13:10 BP 183 / 103; Pulse 103; Resp 20; Temp 97.8; Pulse Ox 98% on R/A; Pain 7/10; hb 13:52 BP 170 / 109; Pulse 96 MON; Resp 23; Pulse Ox 100% on R/A; sv 14:21 Weight 61.23 kg; sv 14:55 BP 169 / 109; Pulse 98; Resp 16; Pulse Ox 97% on R/A; sv 15:07 BP 161 / 104; Pulse 87 MON; Resp 14; Pulse Ox 96% on R/A; sv 15:13 BP 155 / 104; sv 13:52 Sinus Rhythm sv 15:07 Sinus Rhythm sv MDM: 13:19 Patient medically screened. [facility] 14:20 Data reviewed: vital signs, nurses notes, lab test result(s), EKG, radiologic studies, [facility] CT scan, plain films. 09/13 13:21 Order name: Basic Metabolic Panel; Complete Time: 14:39 [facility] 09/13 13:21 Order name: CBC with Diff; Complete Time: 14:15 [facility] 09/13 13:21 Order name: LFT's; Complete Time: 14:39 [facility] 09/13 13:21 Order name: Magnesium; Complete Time: 14:39 [facility] 09/13 13:21 Order name: NT PRO-BNP; Complete Time: 14:39 [facility] 09/13 13:21 Order name: PT-INR; Complete Time: 14:39 [facility] 09/13 13:21 Order name: Troponin (emerg Dept Use Only); Complete Time: 14:39 [facility] 09/13 13:21 Order name: XRAY Chest (1 view); Complete Time: 14:39 [facility] 09/13 13:21 Order name: Lipase; Complete Time: 14:39 [facility] 09/13 13:21 Order name: Blood Culture Adult (2) [facility] 09/13 13:21 Order name: Procalcitonin [facility] 09/13 13:21 Order name: Flu; Complete Time: 14:39 [facility] 09/13 13:27 Order name: Lactate; Complete Time: 14:39 09/13 14:42 Order name: Echo w/ Doppler [facility] 09/13 13:21 Order name: EKG; Complete Time: 13:23 [facility] 09/13 13:21 Order name: Cardiac monitoring; Complete Time: 13:50 [facility] 09/13 13:21 Order name: EKG - Nurse/Tech; Complete Time: 13:50 [facility] 09/13 13:21 Order name: IV Saline Lock; Complete Time: 13:50 [facility] 09/13 13:21 Order name: Labs collected and sent; Complete Time: 13:50 [facility] 09/13 13:21 Order name: O2 Per Protocol; Complete Time: 13:50 [facility] 09/13 13:21 Order name: O2 Sat Monitoring; Complete Time: 13:50 [facility] Administered Medications: 13:22 Drug: Albuterol - atroVENT (3:1) (2.5 mg - 0.5 mg) 3 ml Route: Nebulizer; hb 13:56 Follow up: Response: No adverse reaction; Marked relief of symptoms; Wheezing diminishedsv 13:42 Drug: SOLU-Medrol 125 mg Route: IVP; Site: right forearm; sv 14:00 Follow up: Response: No adverse reaction sv 13:44 Drug: Pepcid 20 mg Route: IVP; Site: right forearm; sv 14:00 Follow up: Response: No adverse reaction sv 13:46 Drug: Decadron - Dexamethasone 10 mg Route: IVP; Site: right forearm; sv 14:00 Follow up: Response: No adverse reaction sv 13:48 Drug: levofloxacin 500 mg Volume: 100 ml; Route: IVPB; Infused Over: 60 mins; Site: sv right forearm; 13:48 Drug: NS 0.9% 1000 ml Route: IV; Rate: 125 ml/hr; Site: right forearm; sv 15:35 Follow up: Response: No adverse reaction; IV Status: Infusion continued upon admission sv 14:32 Drug: Aspirin 162 mg Route: PO; sv 15:02 Follow up: Response: No adverse reaction sv 14:32 Drug: Lopressor 25 mg Route: PO; sv 15:02 Follow up: Response: No adverse reaction sv 14:32 Drug: Lovenox 1 mg/kg Route: Sub-Q; Site: right lower abdomen; sv 15:02 Follow up: Response: No adverse reaction sv 14:32 Drug: Lisinopril 10 mg Route: PO; sv 15:01 Follow up: Response: No adverse reaction; No change in condition sv 14:56 Drug: Lopressor 5 mg Route: IVP; Site: right forearm; sv 15:13 Follow up: BP 155 / 104; Response: No adverse reaction sv 15:01 Drug: PlaVIX 600 mg Route: PO; sv 15:13 Follow up: Response: No adverse reaction sv Disposition: 09/13/18 14:21 Hospitalization ordered by Ryan Colon for Inpatient Admission. Preliminary diagnosis are Chronic obstructive pulmonary disease with (acute) exacerbation, Other chest pain, Essential (primary) hypertension, Tobacco abuse counseling, Tobacco use, Non-ST elevation (NSTEMI) myocardial infarction. - Bed requested for Telemetry/MedSurg (Inpatient). - Status is Inpatient Admission. sv - Condition is Stable. - Problem is new. - Symptoms have improved. UTI on Admission? No Signatures: Dispatcher [employer] EDSuzie Benton RN RN sv Woody, Diana, RN RN dw Anderson, Corey, MD MD cha Baxter, Heather, RN RN Corrections: (The following items were deleted from the chart) 14:41 14:21 Hospitalization Ordered by Ryan Colon DO for Observation. Preliminary chantal diagnosis is Chronic obstructive pulmonary disease with (acute) exacerbation; Other chest pain; Essential (primary) hypertension; Tobacco abuse counseling; Tobacco use. Bed requested for Telemetry/MedSurg (observation). Status is Observation. Condition is Stable. Problem is new. Symptoms have improved. UTI on Admission? No. chantal 15:06 14:41 09/13/2018 14:21 Hospitalization Ordered by Ryan Colon DO for Inpatient dw Admission. Preliminary diagnosis is Chronic obstructive pulmonary disease with (acute) exacerbation; Other chest pain; Essential (primary) hypertension; Tobacco abuse counseling; Tobacco use; Non-ST elevation (NSTEMI) myocardial infarction. Bed requested for Telemetry/MedSurg (Inpatient). Status is Inpatient Admission. Condition is Stable. Problem is new. Symptoms have improved. UTI on Admission? No. chantal 16:22 15:06 09/13/2018 14:21 Hospitalization Ordered by Ryan Colon DO for Inpatient sv Admission. Preliminary diagnosis is Chronic obstructive pulmonary disease with (acute) exacerbation; Other chest pain; Essential (primary) hypertension; Tobacco abuse counseling; Tobacco use; Non-ST elevation (NSTEMI) myocardial infarction. Bed requested for Telemetry/MedSurg (Inpatient). Status is Inpatient Admission. Condition is Stable. Problem is new. Symptoms have improved. UTI on Admission? No. dw
--- NOTE | 2018-09-13 14:22 | ER ---
Nurse's Notes [facility] Name: Roby Ortiz Age: 53 yrs Sex: Male : 1965 Arrival Date: 09/13/2018 Time: 13:06 Bed 7 Private MD: Diagnosis: Chronic obstructive pulmonary disease with (acute) exacerbation;Other chest pain;Essential (primary) hypertension;Tobacco abuse counseling;Tobacco use;Non-ST elevation (NSTEMI) myocardial infarction Presentation: 09/13 13:09 Presenting complaint: SOB, productive cough with yellow sputum, and pain with cough x 2 hb weeks, worse over last 3 days. Transition of care: patient was not received from another setting of care. Onset of symptoms was September 10, 2018. Risk Assessment: Do you want to hurt yourself or someone else? Patient reports no desire to harm self or others. Care prior to arrival: None. 13:09 Method Of Arrival: Wheelchair hb 13:09 Acuity: ELAINE 2 ss 13:30 Initial Sepsis Screen: Does the patient meet any 2 criteria? RR > 20 per min. HR > 90 sv bpm. Yes Does the patient have a suspected source of infection? No. Patient's initial sepsis screen is negative. Historical: - Allergies: 13:11 PENICILLINS; hb - PMHx: 13:11 COPD; Hypertension; Myocardial infarction; hb - Immunization history:: Adult Immunizations up to date. - Social history:: Smoking status: Patient uses tobacco products, smokes one-half pack cigarettes per day, Smoking status: Patient uses tobacco products, Pt stated that he smoked 4 ppd and has only had 3 cigarettes' this week, Patient uses alcohol, on a daily basis. - Ebola Screening: : No symptoms or risks identified at this time. Screenin:25 Abuse screen: Denies threats or abuse. Denies injuries from another. Nutritional sv screening: No deficits noted. Tuberculosis screening: No symptoms or risk factors identified. Fall Risk None identified. Assessment: 13:25 General: Appears uncomfortable, well developed, Behavior is calm, cooperative, sv appropriate for age. Pain: Denies pain. Neuro: Level of Consciousness is awake, alert, obeys commands, Oriented to person, place, time, situation, Moves all extremities. Full function. Cardiovascular: Patient's skin is warm and dry. Rhythm is sinus rhythm. Respiratory: Reports shortness of breath at rest on exertion since "it got worse over the last few days, but I have been out of my meds since May because I'm trying to get my Medicare back." Airway is patent Respiratory effort is even, labored, Respiratory pattern is symmetrical, tachypnea. Derm: Skin is normal. 13:45 Reassessment: Patient appears in no apparent distress at this time. Patient and/or sv family updated on plan of care and expected duration. Pain level reassessed. Patient is alert, oriented x 3, equal unlabored respirations, skin warm/dry/pink. Patient states feeling better. Patient states symptoms have improved. Respiratory: Airway is patent Respiratory effort is even, unlabored, Respiratory pattern is symmetrical, tachypnea. 14:34 Reassessment: Dr Colon at the bedside. sv 15:08 Reassessment: Patient appears in no apparent distress at this time. Patient and/or sv family updated on plan of care and expected duration. Pain level reassessed. Patient is alert, oriented x 3, equal unlabored respirations, skin warm/dry/pink. Patient denies pain at this time. Patient states feeling better. Patient states symptoms have improved. 15:15 Reassessment: Informed Dr Davis of recent vitals after Metoprolol 5mg IVP was given, sv ok for pt to go upstairs. 15:21 Reassessment: Nurse to call back for report. sv 15:34 Reassessment: Patient appears in no apparent distress at this time. Patient and/or sv family updated on plan of care and expected duration. Pain level reassessed. Patient is alert, oriented x 3, equal unlabored respirations, skin warm/dry/pink. Vital Signs: 13:10 BP 183 / 103; Pulse 103; Resp 20; Temp 97.8; Pulse Ox 98% on R/A; Pain 7/10; hb 13:52 BP 170 / 109; Pulse 96 MON; Resp 23; Pulse Ox 100% on R/A; sv 14:21 Weight 61.23 kg; sv 14:55 BP 169 / 109; Pulse 98; Resp 16; Pulse Ox 97% on R/A; sv 15:07 BP 161 / 104; Pulse 87 MON; Resp 14; Pulse Ox 96% on R/A; sv 15:13 BP 155 / 104; sv 13:52 Sinus Rhythm sv 15:07 Sinus Rhythm sv ED Course: 13:06 Patient arrived in ED. rg4 13:10 Triage completed. hb 13:10 Arm band placed on. hb 13:15 Suzie Kirk RN is Primary Nurse. sv 13:19 Jovi Davis MD is Attending Physician. chantal 13:25 Patient has correct armband on for positive identification. Placed in gown. Bed in low sv position. Call light in reach. Adult w/ patient. radiation monitor on. Pulse ox on. NIBP on. Door closed. Head of bed elevated. 13:30 Initial lab(s) drawn, by me, sent to lab. First set of blood cultures drawn by me. sv Inserted saline lock: 20 gauge in right forearm, using aseptic technique. Blood collected. Flushed right forearm with 5 ml normal saline. 13:30 Flu and/or RSV swab sent to lab. sv 13:40 Second set of blood cultures drawn by me. sv 14:01 XRAY Chest (1 view) In Process Unspecified. EDMS 14:11 ED physician to see patient. sv 14:20 Ryan Colon DO is Hospitalizing Provider. chantal 15:08 No provider procedures requiring assistance completed. Patient admitted, IV remains in sv place. intact. Administered Medications: 13:22 Drug: Albuterol - atroVENT (3:1) (2.5 mg - 0.5 mg) 3 ml Route: Nebulizer; hb 13:56 Follow up: Response: No adverse reaction; Marked relief of symptoms; Wheezing diminishedsv 13:42 Drug: SOLU-Medrol 125 mg Route: IVP; Site: right forearm; sv 14:00 Follow up: Response: No adverse reaction sv 13:44 Drug: Pepcid 20 mg Route: IVP; Site: right forearm; sv 14:00 Follow up: Response: No adverse reaction sv 13:46 Drug: Decadron - Dexamethasone 10 mg Route: IVP; Site: right forearm; sv 14:00 Follow up: Response: No adverse reaction sv 13:48 Drug: levofloxacin 500 mg Volume: 100 ml; Route: IVPB; Infused Over: 60 mins; Site: sv right forearm; 13:48 Drug: NS 0.9% 1000 ml Route: IV; Rate: 125 ml/hr; Site: right forearm; sv 15:35 Follow up: Response: No adverse reaction; IV Status: Infusion continued upon admission sv 14:32 Drug: Aspirin 162 mg Route: PO; sv 15:02 Follow up: Response: No adverse reaction sv 14:32 Drug: Lopressor 25 mg Route: PO; sv 15:02 Follow up: Response: No adverse reaction sv 14:32 Drug: Lovenox 1 mg/kg Route: Sub-Q; Site: right lower abdomen; sv 15:02 Follow up: Response: No adverse reaction sv 14:32 Drug: Lisinopril 10 mg Route: PO; sv 15:01 Follow up: Response: No adverse reaction; No change in condition sv 14:56 Drug: Lopressor 5 mg Route: IVP; Site: right forearm; sv 15:13 Follow up: BP 155 / 104; Response: No adverse reaction sv 15:01 Drug: PlaVIX 600 mg Route: PO; sv 15:13 Follow up: Response: No adverse reaction sv Outcome: 14:21 Decision to Hospitalize by Provider. [facility] 15:34 Admitted to Tele accompanied by tech, via wheelchair, room 425, with chart, Report sv called to Rosey CELESTE 15:34 Condition: stable 15:34 Instructed on the need for admit. 16:22 Patient left the ED. sv Signatures: Dispatcher [employer] Suzie Olivo RN RN sv Jovi Davsi MD MD cha Smirch, Shelby, RN RN Radha Blanchard RN RN hb Garcia, Rubi rg4 Corrections: (The following items were deleted from the chart) 13:11 13:09 Presenting complaint: SOB, productive cough with yellow sputum, and pain with hb cough x 3 days hb 13:19 13:09 Acuity: ELAINE 3 hb ss 15:07 13:52 BP 170 / 109; Pulse 96bpm; Resp 23bpm; Pulse Ox 100% RA; sv sv
[2018-09-13 14:30] LABS: Albumin 3.9 g/dL (3.4-5.0); Bilirubin Direct 0.1 mg/dL (0-0.2); Bilirubin Total 0.5 mg/dL (0.2-1.0); Magnesium 2.1 mg/dL (1.8-2.4); Potassium 4.3 mmol/L (3.5-5.1); Protein, Total 7.6 g/dL (6.4-8.2); Troponin (Emerg Dept Use Only) 0.12 ng/mL (0.0-0.045)
[2018-09-13] MEDS ORDERED: ASPIRIN 81 MG CHEWABLE TABLET ONE (14:34)
[2018-09-13] MEDS ORDERED: LISINOPRIL 10 MG TAB ONE (14:35)
[2018-09-13] MEDS ORDERED: METOPROLOL TAR 25 MG TAB ONE (14:35)
[2018-09-13] MEDS ORDERED: ENOXAPARIN 60 MG/0.6 ML SQ ONE (14:35)
[2018-09-13] MEDS ORDERED: METOPROLOL TARTRATE 5 MG/5 ML INJ IV ONE (15:03)
[2018-09-13] MEDS ORDERED: CLOPIDOGREL 75 MG TABLET ONE (15:03)
--- NOTE | 2018-09-13 16:00 | P.HP ---
Certification for Inpatient Patient admitted to: Inpatient With expected LOS: >2 Midnights Patient will require the following post-hospital care: None Practitioner: I am a practitioner with admitting privileges, knowledge of patient current condition, hospital course, and medical plan of care. Services: Services provided to patient in accordance with Admission requirements found in Title 42 Section 412.3 of the Code of Federal Regulations Patient History Date of Service: 09/13/18 Primary Care Provider: none Reason for admission: Chest pain and shortness of breath History of Present Illness: 53-year-old male presented to the emergency room with chest pain and shortness of breath. Patient reports chest pain for over 1 year. He has not been to see Cardiology to evaluate this. He actually has an appointment to see Cardiology soon. Patient had chest pain today. Mainly to the substernal region. It was associated with shortness of breath. Patient has been without medication for the last 2 months. In the ER patient evaluated. No significant ST changes noted on EKG. Troponin was elevated at 0.12. BNP slightly elevated at 3000. White count 8.5, hemoglobin 14. Sodium 138, potassium 4.3. BUN of 24, creatinine 1.23 and GFR 61. Glucose 75. Chest x-ray shows no significant change. Influenza test negative. Patient was admitted for further treatment. When I saw the patient ER, he was without any significant chest pain. Patient appeared stable. Patient with history of hypertension, COPD, alcohol abuse, and tobacco abuse. Allergies No Known Allergies Allergy (Unverified 05/20/18 02:54) Home medications list reviewed: Yes Home Medications: Aspirin [Children's Aspirin] 81 mg PO DAILY 11/20/16 Albuterol Neb [Proventil 0.083% Neb Soln] 1 amp IH QID PRN 05/20/18 Lisinopril 1 tab PO BID 05/20/18 Albuterol Neb [Proventil 0.083% Neb Soln] 2.5 mg NEB [id number] PRN amp 05/21/18 Aspirin 81 mg PO DAILY 30 Days tab.chew 05/21/18 Codeine/APAP [Tylenol W/Codeine #3 tab] 1 tab PO Q6HP PRN #30 tab 05/21/18 Lisinopril [Prinivil*] 20 mg PO BID tab 05/21/18 - Past Medical/Surgical History Diabetic: No -: Glaucoma -: HTN -: COPD -: History of CVA -: Tobacco abuse -: Alcohol abuse -: bilateral eye surgery Psychosocial/ Personal History: Patient has a girlfriend. He has 6 children. 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 - Family History Mother -: Heart disease, Cancer Notes: Lymphoma, Leukemia Father -: Heart disease, Cancer Notes: Throat - Social History Smoking Status: Heavy Tobacco smoker (>10 cigarettes/day) Counseled patient to stop smoking for: less than 10 minutes Smoking therapy provided: Yes Patient receptive to therapy: Yes Alcohol use: Yes CD- Drugs: No Caffeine use: Yes Place of Residence: Home Review of Systems General: As per HPI Eyes: Unremarkable ENT: Unremarkable Respiratory: Shortness of Breath, As per HPI Cardiovascular: Chest Pain, As per HPI Gastrointestinal: Unremarkable Genitourinary: Unremarkable Musculoskeletal: Unremarkable Integumentary: Unremarkable Neurological: Unremarkable Lymphatics: Unremarkable Physical Examination - Physical Exam General: Alert, In no apparent distress, Oriented x3, Cooperative HEENT: Atraumatic, Normocephalic, PERRLA, Mucous membr. moist/pink Neck: Supple, No Thyromegaly Respiratory: Expiratory wheezes (Minimal wheezing bilateral) Cardiovascular: Normal pulses, Regular rate/rhythm Gastrointestinal: Normal bowel sounds, Soft and benign, Non-distended, No tenderness, No masses, No rebound, No guarding Musculoskeletal: No erythema, No tenderness, No warmth Integumentary: No tenderness/swelling, No erythema, No warmth, No cyanosis Neurological: Normal speech, Normal strength at 5/5 x4 extr, Normal tone, Normal affect - Studies Laboratory Data (last 24 hrs) 09/13/18 13:30: PT 11.1, INR 0.94 09/13/18 13:30: WBC 8.5, Hgb 14.3, Hct 41.5, Plt Count 283 09/13/18 13:30: Sodium 138, Potassium 4.3, BUN 24 H, Creatinine 1.23, Glucose 75 , Magnesium 2.1, Total Bilirubin 0.5, AST 49 H, ALT 45, Alkaline Phosphatase 80 , Lipase 115 Microbiology Data (last 24 hrs): 09/13/18 13:40 Nasopharnyx Influenza Type A Antigen Screen - Final 09/13/18 13:40 Nasopharnyx Influenza Type B Antigen Screen - Final Assessment and Plan - Plan Impression: Chest pain with shortness of breath secondary to NSTEMI suspect underlying Coronary artery disease Hypertension, uncontrolled COPD with exacerbation Tobacco abuse Alcohol abuse Plan: Chest pain with shortness of breath secondary to NSTEMI suspect underlying Coronary artery disease: Patient will be admitted for further evaluation and treatment. Patient placed on Lovenox at 1 milligram/kilogram subcu twice daily. Will start metoprolol, aspirin, nitroglycerin and morphine. Will monitor the patient closely. Cardiology consulted. Anticipate heart catheterization tomorrow to further evaluate. Patient likely has underlying Coronary artery disease due to his history of hypertension and tobacco/alcohol abuse. Will check urine drug screen. Will check for alcohol level. Hypertension, uncontrolled: Will start metoprolol. Continue lisinopril. COPD with exacerbation: Patient with mild exacerbation. Will start prednisone. Continue with COPD treatment. Maintain sats above 90%. Tobacco abuse: Will provide nicotine patch. Tobacco cessation addressed in detail. Patient has cut down significantly. Alcohol abuse: Will monitor for agitation. Lifestyle modification education addressed in detail. Discharge Plan: Home Plan to discharge in: 48 Hours - Advance Directives Does patient have a Living Will: Yes Does patient have a Durable POA for Healthcare: Yes - Code Status/Comfort Care Code Status Assessed: Yes (Patient full code.) Time Spent Managing Pts Care (In Minutes): 55
[2018-09-13] MEDS ORDERED: ONDANSETRON 4 MG/2 ML VIAL IV PRN (16:01)
[2018-09-13] MEDS ORDERED: LORazepam 2 MG/ML VIAL IV PRN (16:01)
[2018-09-13] MEDS ORDERED: NITROGLYCERIN 0.4 MG/TAB SL PRN (16:01)
[2018-09-13] MEDS ORDERED: MORPHINE 2 MG/ML SYR IV PRN (16:01)
[2018-09-13] MEDS ORDERED: IPRATROPIUM BROM 0.5MG/2.5ML NEB PRN (16:01)
[2018-09-13] MEDS ORDERED: ALBUTEROL 2.5 MG/3 ML NEB SOL NEB PRN (16:01)
[2018-09-13] MEDS ORDERED: ACETAMINOPHEN 500 MG TAB PO PRN (16:01)
[2018-09-13 16:26] VITALS: BMI 21.1
[2018-09-13 16:58] LABS: CKMB Creatine Kinase MB 2.3 ng/mL (0.3-3.6); Troponin I 0.1 ng/mL (0.0-0.045)
[2018-09-13 17:04] LABS: Thyroid Stimulating Hormone 0.895 uIU/mL (0.360-3.740)
[2018-09-13] MEDS: NICOTINE 21 MG/PAT TD SCH (17:48)
[2018-09-13 18:44] LABS: Urine Appearance CLEAR; Urine Bilirubin NEGATIVE (NEG); Urine Blood NEGATIVE (NEG); Urine Color YELLOW; Urine Glucose NEGATIVE (NEG); Urine Protein NEGATIVE (NEG); Urine Specific Gravity 1.015 (1.005-1.030); Urine Urobilinogen 0.2 mg/dL (0.2-1.0); Urine pH 5.5 (5.0-7.0)
[2018-09-13 18:48] LABS: Urine Microscopic Reflex NO UMIC
--- NOTE | 2018-09-13 19:04 | EKG ---
Test Date: 2018-09-13 Test Time: 13:26:59 Elastic Yarn Twister Helper: LORELEI MEASUREMENT RESULTS: Intervals: Rate: 87 OK: 120 QRSD: 94 QT: 396 QTc: 476 [place]: P: 77 OK: 120 QRS: 51 T: 25 INTERPRETIVE STATEMENTS: Normal sinus rhythm Possible Left atrial enlargement Nonspecific T wave abnormality Prolonged QT Abnormal ECG Compared to ECG 05/19/2018 20:50:14 Prolonged QT interval now present T-wave abnormality still present Electronically Signed On 09-13-18 19:02:56 STOVE BOTTOM WORKER by Omer Braga
[2018-09-13] MEDS: ARFORMOTEROL TARTRATE 15 MCG/2 ML VIAL.NEB NEB SCH (20:00)
[2018-09-13] MEDS: predniSONE 20 MG TAB PO SCH (20:03)
[2018-09-13] MEDS: METOPROLOL TAR 50 MG TAB PO SCH (20:03)
[2018-09-13] MEDS: ENOXAPARIN 60 MG/0.6 ML SQ SCH (20:04)
[2018-09-13] MEDS ORDERED: ATORVASTATIN 80 MG TAB PO SCH (21:00)
[2018-09-13 21:43] LABS: Barbiturates NEGATIVE (NEGATIVE); Benzodiazepines NEGATIVE (NEGATIVE); Cocaine NEGATIVE (NEGATIVE); METHAMPHETAM NEGATIVE (NEGATIVE); Methadone NEGATIVE (NEGATIVE); Opiates NEGATIVE (NEGATIVE); Phencyclidine NEGATIVE (NEGATIVE); THC Cannibis NEGATIVE (NEGATIVE)
--- NOTE | 2018-09-14 00:10 | CON ---
Date of Consultation: 09/13/2018 Reason For Consultation: [id number] myocardial infarction. History Of Present Illness: Mr. Ortiz is a 53-year-old white male with history of hypertension, [place] PD, quit smoking approximately 6 weeks ago; has come in with shortness of breath, chest pain, presync opal episode, and hypertension; was found to have a troponin of 0.12. His BNP was 3353. EKG showed nonspecific changes. An echocardiogram showed an ejection fraction of 34% with gtkgagwu-fl-wdvnvo gl obal hypokinesis, which is new to him compared to 2017. He has had no PND, orthopnea, or pedal edema . Has not had any palpitation. Has had an episode of cough about a week ago, but denied any fever o r chills. The chest x-ray shows possible pneumonia, although his white count is normal and has not h ad any fever or chills. He was given one dose of Levaquin. Past Medical History: Otherwise, as stated above. Allergies: NONE. Review of Systems: Negative. Social History: Negative, recently quitting tobacco. Family History: Negative. Medications: At home include lisinopril, aspirin, and albuterol inhaler. Physical Examination: General: He was alert and oriented x3, no acute distress. No chest pain. Still having shortness of breath. Vital Signs: Stable. He was afebrile. He was in a sinus rhythm. HEENT: Negative. Neck: Supple without any bruit, lymphadenopathy, JVD, or thyromegaly. Chest: Clear to auscultation and percussion on both sides. No wheezing. No rales. Cardiac: Revealed a regular rhythm and rate. No murmurs, gallops, or rubs. Abdomen: Benign. Extremities: Revealed no clubbing, cyanosis, or edema. Diagnostic Data: As stated above. Impression And Plan: 1.Mlp-SN-ruonwhoer myocardial infarction with new-onset congestive heart failure. 2.Possible pneumonia, although doubtful with a normal white count. No fever. No chills. Had some cough about a week ago. 3.Chronic obstructive pulmonary disease. 4.Hypertension, poorly controlled. I agree with his present regimen including Lovenox and metoprolo l. He has received 1 dose of antibiotics. We will plan a left heart catheterization with selective coronary arteriography tomorrow with possible intervention to define his coronary anatomy and decide on further medical therapy. The patient understands the risks and the benefits of the procedure, and he agrees to proceed. LEIDY/IVAN Voice ID: [id number] Report ID: [id number]
[2018-09-14 01:09] LABS: CKMB Creatine Kinase MB 1.9 ng/mL (0.3-3.6); Troponin I 0.06 ng/mL (0.0-0.045)
[2018-09-14] MEDS: ENOXAPARIN 60 MG/0.6 ML SQ SCH (05:21)
[2018-09-14] MEDS ORDERED: NA CHLORIDE 0.9% 1,000 ML ONE (05:58)
[2018-09-14 05:59] LABS: Absolute Lymphocytes (CBC) 0.7 K/uL (0.7-4.9); Absolute Monocytes 0.3 K/uL (0.1-1.3); Absolute Neutrophil 3.9 K/uL (1.8-8.0); Basophils % 0.3 % (0-1.3); Hematocrit 39.9 % (39.6-49.0); Lymphocytes % 13.7 % (15.3-44.8); MPV 9.6 fL (7.6-11.3); Monocytes % 5.3 % (3.3-12.3); RBC Red Blood Cell Count 4.23 M/uL (4.33-5.43)
[2018-09-14] MEDS: METOPROLOL TAR 50 MG TAB PO SCH (06:03)
[2018-09-14 06:17] LABS: Magnesium 2.3 mg/dL (1.8-2.4); Potassium 3.9 mmol/L (3.5-5.1)
[2018-09-14] MEDS ORDERED: POTASSIUM 25 MEQ EFFERV TAB PO ONE (06:58)
[2018-09-14] MEDS: ARFORMOTEROL TARTRATE 15 MCG/2 ML VIAL.NEB NEB SCH (08:00)
--- NOTE | 2018-09-14 08:01 | ECHO ---
HEIGHT: 5 ft 7 in WEIGHT: 135 lb 0 oz DATE OF STUDY: 09/13/[address]: Jovi Davis MD 2-DIMENSIONAL: YES M.MODE: YES DOPPLER: YES COLOR FLOW: YES TDS: NO PORTABLE: NO DEFINITY: NO BUBBLE STUDY: NO DIAGNOSIS: CHEST PAIN CARDIAC HISTORY: CATHERIZATION: NO SURGERY: NO PROSTHETIC VALVE: NO PACEMAKER: NO MEASUREMENTS (cm) DIASTOLIC (NORMALS) SYSTOLIC (NORMALS) IVSd 0.9 (0.6-1.2) LA Diam 3.6 (1.9-4.0) LVEF 34% LVIDd 5.3 (3.5-5.7) LVIDs 4.5 (2.0-3.5) %FS 16% LVPWd 0.9 (0.6-1.2) Ao Diam 2.6 (2.0-3.7) 2 DIMENSIONAL ASSESSMENT: RIGHT ATRIUM: NORMAL LEFT ATRIUM: NORMAL RIGHT VENTRICLE: NORMAL LEFT VENTRICLE: NORMAL SIZE TRICUSPID VALVE: NORMAL MITRAL VALVE: NORMAL PULMONIC VALVE: NORMAL AORTIC VALVE: NORMAL PERICARDIAL EFFUSION: NONE AORTIC ROOT: NORMAL LEFT VENTRICULAR WALL MOTION: SEVERE GLOBAL HYPOKINESIS. DOPPLER/COLOR FLOW: MILD MITRAL AND TRICUSPID REGURGITATION. COMMENTS: MILD MITRAL AND TRICUSPID REGURGITATION. RIGHT VENTRICULAR SYSTOLIC PRESSURE 37 mmHg. SEVERE GLOBAL HYPOKINESIS. LEFT VENTRICULAR EJECTION FRACTION 34%. NO EFFUSION. TECHNOLOGIST: Jones LOW
[2018-09-14] MEDS ORDERED: ASPIRIN EC 81 MG TAB PO SCH (09:00)
[2018-09-14] MEDS ORDERED: LISINOPRIL 20 MG TAB PO SCH (09:00)
--- NOTE | 2018-09-14 09:02 | RAD REPORT ---
EXAM DESCRIPTION: Scott Pa And Lat (2 Views)09/14/2018 8:21 am CLINICAL HISTORY: Cough COMPARISON: September 13 FINDINGS: Lungs are moderately to markedly hyperaerated. The left basilar opacities have mostly resolved. The heart is normal size IMPRESSION: COPD Improvement in a left basilar pneumonia
[2018-09-14] MEDS ORDERED: HEPA 1000U/500MLS 2,000 UNIT/1,000 ML BAG IV ONE (09:47)
[2018-09-14] MEDS ORDERED: MIDAZOLAM HCL 2 MG/2 ML INJ ONE ×2 (10:42→10:49)
[2018-09-14] MEDS ORDERED: NITROGLYCERIN 100 MCG/ML SYR (for cath lab use only) IV ONE (10:42)
[2018-09-14] MEDS ORDERED: NICARDIPINE HCL 25 MG/10 ML IV ONE (10:42)
[2018-09-14] MEDS ORDERED: FENTANYL CITR 100 MCG/2 ML ONE (10:42)
[2018-09-14] MEDS ORDERED: ATROPINE SULF 1 MG/10 ML SYR IV ONE (10:42)
[2018-09-14] MEDS ORDERED: HEPARIN 5000 UNIT/ML 1 ML VIAL ONE (10:42)
[2018-09-14] MEDS ORDERED: NA CHLORIDE 0.9% 0 ML ONE (10:43)
--- NOTE | 2018-09-14 11:54 | P.DS ---
Admission Date: 09/13/18 Discharge Date: 09/14/18 Primary Care Provider: none Disposition: ROUTINE DISCHARGE Discharge Condition: GOOD Reason for Admission: Chest pain and shortness of breath Consultations: Cardiology-Dr. Timmons Procedures: ECHO: LEFT VENTRICULAR WALL MOTION: SEVERE GLOBAL HYPOKINESIS. DOPPLER/COLOR FLOW: MILD MITRAL AND TRICUSPID REGURGITATION. COMMENTS: MILD MITRAL AND TRICUSPID REGURGITATION. RIGHT VENTRICULAR SYSTOLIC PRESSURE 37 mmHg. SEVERE GLOBAL HYPOKINESIS. LEFT VENTRICULAR EJECTION FRACTION 34%. NO EFFUSION. Heart Catheterization: Normal coronaries as per Cardiology. EF around 30%. Medical Problem List: Chest pain with shortness of breath secondary to NSTEMI status post heart catheterization showing normal coronaries complicated with acute on chronic systolic CHF with ejection fraction of 30% and alcoholic cardiomyopathy Hypertension, uncontrolled COPD with exacerbation Chronic kidney disease stage 3 Tobacco abuse Alcohol abuse Brief History of Present Illness: 53-year-old male presented to the emergency room with chest pain and shortness of breath. Patient reports chest pain for over 1 year. He has not been to see Cardiology to evaluate this. He actually has an appointment to see Cardiology soon. Patient had chest pain today. Mainly to the substernal region. It was associated with shortness of breath. Patient has been without medication for the last 2 months. In the ER patient evaluated. No significant ST changes noted on EKG. Troponin was elevated at 0.12. BNP slightly elevated at 3000. White count 8.5, hemoglobin 14. Sodium 138, potassium 4.3. BUN of 24, creatinine 1.23 and GFR 61. Glucose 75. Chest x-ray shows no significant change. Influenza test negative. Patient was admitted for further treatment. When I saw the patient ER, he was without any significant chest pain. Patient appeared stable. Patient with history of hypertension, COPD, alcohol abuse, and tobacco abuse. Hospital Course: Patient presented with chest pain and shortness of breath. Patient found to have elevated troponin. NSTEMI noted. Cardiology evaluated patient. Recommended echocardiogram and heart catheterization to further evaluate. Echocardiogram shows ejection fraction of 34%. Heart catheterization showed normal coronaries but ejection fraction around 30% with noted cardiomyopathy. Patient with alcoholic cardiomyopathy. Patient did well with diuresis. Adjustments in medication were done. At discharge patient will continue with a 1500 cc per day fluid restriction and low-salt diet. Patient is to monitor his weight daily. If his weight increases by more than 5 lb he is to contact cardiology for further recommendation. At discharge patient will continue with aspirin 81 mg daily, lisinopril 20 mg 1 pill daily, metoprolol 50 mg 1 pill twice daily, Aldactone 25 mg 1 pill daily, and Lasix 40 mg daily. Patient will follow up with cardiology in 1-2 weeks. Patient may be a candidate Entresto, if patient is compliant with alcohol cessation. This can be further addressed by cardiology. Education on CHF and alcohol cessation will be provided. The patient plans to quit alcohol. Recommend to recheck lab-BMP in 1 week along with chest x-ray to monitor his progress. Patient will establish care with a PCP to help address his conditions. Patient also had underlying COPD exacerbation. At discharge patient will continue with prednisone 20 mg 1 pill twice daily for 5 days then 1 pill once daily for 5 days. Dulera 2 puffs twice daily has been added. Patient will continue with Dulera at discharge along with pro air 2 puffs 3 times a day as needed for shortness of breath. Recommendation is for the patient follow up with pulmonology as an outpatient to further monitor and address. Patient with hypertension. Medications adjusted during his stay. At discharge he will continue with lisinopril 20 mg daily and metoprolol 50 mg 1 pill twice daily. Recommendation is to maintain blood pressures less 150/80. Further adjustment can be done by cardiology or his PCP. Tobacco and alcohol cessation addressed in detail. Patient plans to quit both. Patient likely has underlying chronic kidney disease, stage III. Recommendation is to recheck lab-BMP in 1 week to monitor his progress. Medications may need to be adjusted per renal function. This can be further addressed by his PCP. Recommend no further use of nonsteroidal anti inflammatories. Vital Signs/Physical Exam: Temp Pulse Resp BP Pulse Ox 98.5 F 80 18 153/92 H 97 09/14/18 08:00 09/14/18 08:00 09/14/18 08:00 09/14/18 08:00 09/14/18 08:00 General: Alert, In no apparent distress, Oriented x3, Cooperative HEENT: Atraumatic Neck: Supple Respiratory: Clear to auscultation bilaterally, Normal air movement Cardiovascular: Normal pulses, Regular rate/rhythm Gastrointestinal: Normal bowel sounds, Soft and benign, Non-distended, No masses , No rebound, No guarding Musculoskeletal: No erythema, No tenderness, No warmth Integumentary: No tenderness/swelling, No erythema, No warmth, No cyanosis Neurological: Normal speech, Normal strength at 5/5 x4 extr, Normal tone, Normal affect Laboratory Data at Discharge: WBC 4.8 K/uL (4.3-10.9) D 09/14/18 05:42 Hgb 13.9 g/dL (13.6-17.9) 09/14/18 05:42 Hct 39.9 % (39.6-49.0) 09/14/18 05:42 Plt Count 278 K/uL (152-406) 09/14/18 05:42 PT 11.1 SECONDS (9.5-12.5) 09/13/18 13:30 INR 0.94 09/13/18 13:30 Sodium 141 mmol/L (136-145) 09/14/18 05:42 Potassium 3.9 mmol/L (3.5-5.1) 09/14/18 05:42 BUN 23 mg/dL (7-18) H 09/14/18 05:42 Creatinine 1.36 mg/dL (0.55-1.3) H 09/14/18 05:42 Glucose 138 mg/dL (74-106) H 09/14/18 05:42 Magnesium 2.3 mg/dL (1.8-2.4) 09/14/18 05:42 Total Bilirubin 0.5 mg/dL (0.2-1.0) 09/13/18 13:30 AST 49 U/L (15-37) H 09/13/18 13:30 ALT 45 U/L (12-78) 09/13/18 13:30 Alkaline Phosphatase 80 U/L (45-117) 09/13/18 13:30 Troponin I 0.06 ng/mL (0.0-0.045) H 09/14/18 00:33 Triglycerides 55 mg/dL (<150) 09/14/18 05:42 Cholesterol 186 mg/dL (<200) 09/14/18 05:42 HDL Cholesterol 75 mg/dL (40-60) H 09/14/18 05:42 Cholesterol/HDL Ratio 2.48 09/14/18 05:42 Lipase 115 U/L (73-393) 09/13/18 13:30 Home Medications: RX: Aspirin [Children's Aspirin] 81 mg PO DAILY 11/20/16 RX: Codeine/APAP [Tylenol #3*] 1 tab PO Q6HP PRN #30 tab 05/21/18 RX: Albuterol Inhaler [Ventolin Inhaler*] 2 puff IH TID PRN #1 hfa.aer.ad RX: Albuterol Neb [Proventil 0.083% Neb Soln] 2.5 mg NEB TID PRN #90 amp RX: Furosemide [Lasix*] 40 mg PO DAILY #30 tab 09/14/18 RX: Lisinopril [Prinivil*] 20 mg PO DAILY #30 tab 09/14/18 RX: Metoprolol Tartrate [Lopressor*] 50 mg PO BID #60 tab 09/14/18 RX: Mometasone/Formoterol [Dulera 200 Mcg/5 Mcg Inhaler] 2 puff IH BID #1 inhaler 09/14/18 RX: Nitroglycerin [Nitrostat*] 0.4 mg SL UD PRN #30 tab 09/14/18 RX: Spironolactone [Aldactone*] 25 mg PO DAILY #30 tab 09/14/18 RX: predniSONE [Prednisone*] 20 mg PO SEECOM #15 tab 09/14/18 New Medications: RX: Albuterol Inhaler [Ventolin Inhaler*] 2 puff IH TID PRN #1 hfa.aer.ad PRN Reason: Shortness Of Breath RX: Albuterol Neb [Proventil 0.083% Neb Soln] 2.5 mg NEB TID PRN #90 amp PRN Reason: Shortness Of Breath RX: Furosemide [Lasix*] 40 mg PO DAILY #30 tab RX: Lisinopril [Prinivil*] 20 mg PO DAILY #30 tab RX: Metoprolol Tartrate [Lopressor*] 50 mg PO BID #60 tab RX: Mometasone/Formoterol [Dulera 200 Mcg/5 Mcg Inhaler] 2 puff IH BID #1 inhaler RX: Nitroglycerin [Nitrostat*] 0.4 mg SL UD PRN #30 tab PRN Reason: Pain Scale 2-4 (Mild) RX: predniSONE [Prednisone*] 20 mg PO SEECOM #15 tab RX: Spironolactone [Aldactone*] 25 mg PO DAILY #30 tab Patient Discharge Instructions: 1. Patient will establish care with a PCP and follow up this hospitalization. 2. Patient presented with chest pain and shortness of breath. Patient found to have elevated troponin. NSTEMI noted. Cardiology evaluated patient. Recommended echocardiogram and heart catheterization to further evaluate. Echocardiogram shows ejection fraction of 34%. Heart catheterization showed normal coronaries but ejection fraction around 30% with noted cardiomyopathy. Patient with alcoholic cardiomyopathy. Patient did well with diuresis. Adjustments in medication were done. At discharge patient will continue with a 1500 cc per day fluid restriction and low -salt diet. Patient is to monitor his weight daily. If his weight increases by more than 5 lb he is to contact cardiology for further recommendation. At discharge patient will continue with aspirin 81 mg daily, lisinopril 20 mg 1 pill daily, metoprolol 50 mg 1 pill twice daily, Aldactone 25 mg 1 pill daily, and Lasix 40 mg daily. Patient will follow up with cardiology in 1-2 weeks. Patient may be a candidate Entresto, if patient is compliant with alcohol cessation. This can be further addressed by cardiology. Education on CHF and alcohol cessation will be provided. The patient plans to quit alcohol. Recommend to recheck lab-BMP in 1 week along with chest x-ray to monitor his progress. Patient will establish care with a PCP to help address his conditions. 3. Patient also had underlying COPD exacerbation. At discharge patient will continue with prednisone 20 mg 1 pill twice daily for 5 days then 1 pill once daily for 5 days. Dulera 2 puffs twice daily has been added. Patient will continue with Dulera at discharge along with pro air 2 puffs 3 times a day as needed for shortness of breath. Recommendation is for the patient follow up with pulmonology as an outpatient to further monitor and address. 4. Patient with hypertension. Medications adjusted during his stay. At discharge he will continue with lisinopril 20 mg daily and metoprolol 50 mg 1 pill twice daily. Recommendation is to maintain blood pressures less 150/ 80. Further adjustment can be done by cardiology or his PCP. 5. Tobacco and alcohol cessation addressed in detail. Patient plans to quit both. 6. Patient likely has underlying chronic kidney disease, stage III. Recommendation is to recheck lab-BMP in 1 week to monitor his progress. Medications may need to be adjusted per renal function. This can be further addressed by his PCP. Recommend no further use of nonsteroidal anti inflammatories. Diet: AHA Activity: Ad lyssa Time spent managing pt's care (in minutes): 55
[2018-09-14] MEDS ORDERED: SPIRONOLACTONE 25 MG TABLET PO SCH (12:00)
[2018-09-14 13:09] VITALS: O2SAT 97
[2018-09-14] MEDS: predniSONE 20 MG TAB PO SCH (13:58)
[2018-09-14] MEDS: NICOTINE 21 MG/PAT TD SCH (13:58)
[2018-09-14] MEDS ORDERED: ACETAMINOPHEN 325 MG TABLET PO PRN (14:24)
[2018-09-14] MEDS ORDERED: NA CHLORIDE 0.9% 1,000 ML IV SCH (15:00)
[2018-09-14] MEDS ORDERED: NITROGLYCERIN 0.4 MG/TAB SL PRN (15:00)
[2018-09-14] MEDS ORDERED: ALBUTEROL PROAIR IH PRN (15:30)
[2018-09-14 17:49] VITALS: BP 141/97; TEMP 99
[2018-09-14] MEDS ORDERED: DULERA 200/5 (MOMETASONE/FORMOTEROL) INHALER IH SCH (21:00)
--- NOTE | 2018-09-14 21:05 | OP ---
Surgeon: Ketan Timmons MD Procedures: Left heart catheterization, coronary left ventricular angiography. Reason For Cardiac Catheterization: Cardiomyopathy with abnormal enzymes, rule out coronary artery d isease. Procedure Findings: The patient has normal coronary arteries. They are very large diameter. No ken que, calcification, or stenosis. Typical right dominant pattern. His ejection fraction is about is 30% to 35%. Left ventricular end-diastolic pressure is elevated at 20 to 25 mmHg. All consistent wi th cardiomyopathy. Procedure In Detail: The patient was brought to the cardiac catheterization lab in a fasting state, sedated with Versed and fentanyl, prepared and draped in usual sterile fashion. Right radial approac h was used. Right radial artery tissues were anesthetized with 1% lidocaine. The artery was entered using a 21-gauge needle, cannulated with a 0.730-igok-zvzudxnt guidewire. This allowed us to place a 6-[place] Terumo radial sheath. The sheath was then flushed; and the radial cocktail was given cons isting of nicardipine, heparin, and nitroglycerin. We proceeded to do a cardiac catheterization with the TIG catheter, guided into the ascending aorta using a short radius J-tip Glidewire and fluorosco py. We were able to angiogram right and left coronary, left ventricle, all with the TIG catheter. A t the end of the procedure, the catheter was withdrawn over a J-wire. The sheath was flushed, remove d, and the arteriotomy was closed with a TR Band. Estimated Blood Loss: 5 cc. Complications: None. DARLEEN/IVAN Voice ID: [id number] Report ID: [id number]
[2018-09-15] MEDS ORDERED: FUROSEMIDE 40 MG TABLET PO SCH (09:00)
== END 2018-09-14 19:07 | disposition home or self-care (01) | DRG 280 ==
LOC: ER 13:05 → ERHOLD 14:39 → 4TH 15:34
PROVIDERS: ADMIT Family Medicine; ATTEND Family Medicine
PROC: 4A023N7 Measurement of Cardiac Sampling and Pressure, Left Heart, Percutaneous Approach (ICD-10-PCS; principal; 2018-09-14)
PROC: B211YZZ Fluoroscopy of Multiple Coronary Arteries using Other Contrast (ICD-10-PCS; 2018-09-14)
PROC: B215YZZ Fluoroscopy of Left Heart using Other Contrast (ICD-10-PCS; 2018-09-14)
DX: I21.4 Non-ST elevation (NSTEMI) myocardial infarction (principal); I50.23 Acute on chronic systolic (congestive) heart failure; I42.6 Alcoholic cardiomyopathy; I13.0 Hypertensive heart and chronic kidney disease with heart failure and stage 1 through stage 4 chronic kidney disease, or unspecified chronic kidney disease; J44.1 Chronic obstructive pulmonary disease with (acute) exacerbation; N18.3 Chronic kidney disease, stage 3 (moderate); F10.20 Alcohol dependence, uncomplicated; F17.210 Nicotine dependence, cigarettes, uncomplicated; F10.10 Alcohol abuse, uncomplicated; Z88.0 Allergy status to penicillin; Z86.73 Personal history of transient ischemic attack (TIA), and cerebral infarction without residual deficits
CPT/HCPCS: 36415; 71045; 71046; 80048; 80061; 80076; 80307; 80320; 81003; 82550; 82553; 83605; 83690; 83735; 83880; 84145; 84439; 84443; 84484; 85025; 85610; 87040; 87086; 87088; 87804; 93005; 93306; 93458; 94640; 96361; 96372; 96374; 96375; 99285; C1893; J0583; J1644; J1650; J2250; J2930; J3010; J7030; J7512; J7605; J7606

== ENCOUNTER 2019-08-07 11:02 | Observation (INO) | payer MEDICAID ==
--- OUTSIDE RECORDS SUMMARY | 2019-08-07 11:08 | XMS REPORT | Summary of Care ---
:1965 Author Organization [facility] Address [address] [place] [id number] Care Team Providers Name Role Phone Pcp, Patient Does Not Have A Primary Care Provider Reason for Referral (Routine) Status Reason Specialty Diagnoses / Referred By Referred To Procedures Contact Contact New Request PN-PSYCHIATRY Diagnoses Acute on chronic combined systolic and diastolic congestive heart failure Colin Hamilton Procedures Discharge Follow-Up: Specialty Service PN-PSYCHIATRY; 2 Weeks MD Jair [address] [place] [phone] (PEÑA) Status Reason Specialty Diagnoses / Referred By Referred To Procedures Contact Contact New Request IM-ADVANCED HEART Diagnoses 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, FAILURE & Procedures Discharge Follow-Up: Specialty Service IM-ADVANCED HEART FAILURE & TRANSPLANT CARDIOLOGY; 1 Week TORIE Castillo MD CARDIOLOGY [address] [place] [address] [place] [phone] (Routine) Status Reason Specialty Diagnoses / Referred By Referred To Procedures Contact Contact New Request Diagnoses Acute on chronic combined systolic and diastolic congestive heart failure Colin Hamilton Pcp, Patient Does Procedures Discharge Follow-up: PCP PATIENT DOES NOT HAVE A PCP; 1 Week MD Jair Not Have A [address] [place] [address] [place] [phone] Phone: Radiology Services (Emergency) Status Reason Specialty Diagnoses / Referred By Referred To Procedures Contact Contact New Request Diagnostic Diagnoses Chest pain on breathing Nicola Cobos, Radiology Procedures CHEST 2 VIEWS [address] [address] Radiology Services (Emergency) Status Reason Specialty Diagnoses / Referred By Referred To Procedures Contact Contact New Request Diagnostic Diagnoses Chest pain on breathing Nicola Cobos, Radiology Procedures CHEST 2 VIEWS [address] [address] Reason for Visit Reason Comments Shortness of Breath Auth/Cert Status Reason Specialty Diagnoses / Referred By Referred To Procedures Contact Contact Emergency Medicine Diagnoses SOB [facility] [address] [place] [phone] Encounter Details Date Type Department Care Team Description 04/06/2019 - Hospital Encounter Family Medicine Nicola Cobos MD [address] [phone] SOB (shortness of 04/08/2019 (BALWINDER 10D) Colin Hamilton MD [address] [place] [phone] breath) [address] [place], [place] [phone] Allergies No Known Allergiesdocumented as of this encounter (statuses as of 04/08/2019) Medications Medication Sig Dispensed Refills Start Date End Date Status albuterol-ipratropiu Inhale 1 Puff 0 Active m (COMBIVENT 4 (four) RESPIMAT) 20-100 times daily. mcg/actuation inhaler tiotropium bromide Inhale 1 0 Active 2.5 mcg/actuation Puff. Mist aspirin 81 mg Take 1 tablet 30 tablet 11 04/09/2019 Active chewable by mouth tabletIndications: daily. Acute on chronic combined systolic and diastolic congestive heart failure atorvastatin 40 mg Take 1 tablet 30 tablet 5 04/08/2019 Active tabletIndications: by mouth at Acute on chronic bedtime. combined systolic and diastolic congestive heart failure carvedilol 6.25 mg Take 1 tablet 60 tablet 2 04/08/2019 Active tabletIndications: by mouth 2 Acute on chronic (two) times combined systolic daily with and diastolic meals. congestive heart failure isosorbide Take 1 tablet 30 tablet 2 04/09/2019 Active mononitrate 30 mg 24 by mouth hr daily. tabletIndications: Acute on chronic combined systolic and diastolic congestive heart failure nitroglycerin 0.[address] 1 1 Bottle 2 04/08/2019 Active sublingual tablet under tabletIndications: the tongue Acute on chronic every 5 combined systolic (five) and diastolic minutes as congestive heart needed for failure Chest pain. carvedilol 12.5 mg Take 1 tablet 60 tablet 1 10/21/2016 04/06/2019 Discontinued tablet by mouth 2 (two) times daily with meals. aspirin 81 mg Take 1 tablet 0 10/21/2016 04/08/2019 Discontinued chewable tablet by mouth daily. olmesartan (BENICAR) Take 2 60 tablet 1 10/21/2016 04/06/2019 Discontinued 5 mg tablets by tabletIndications: mouth 2 (two) Chest pain, times daily. unspecified NIFEdipine ER 60 mg Take 1 tablet 30 tablet 1 10/21/2016 04/06/2019 Discontinued SR tablet by mouth daily. lisinopril 20 mg Take 20 mg by 0 04/08/2019 Discontinued tablet mouth daily. documented as of this encounter (statuses as of 04/08/2019) Active Problems Problem Noted Date SOB (shortness of breath) 04/06/2019 Hypertensive urgency 10/21/2016 Alcohol use 10/21/2016 Cardiomyopathy 10/21/2016 Chest pain 10/21/2016 Chest pain, unspecified 10/20/2016 Essential hypertension 10/20/2016 Hypertension 10/20/2016 documented as of this encounter (statuses as of 04/08/2019) Social History Tobacco Use Types Packs/Day Years Used Date Former Smoker Cigarettes 4 10/20/1976 - 03/02/2019 Smokeless Tobacco: Never Used Comments: 4-5 ppd for 42 years Alcohol Use Drinks/Week oz/Week Comments Not Currently 12 pack every day at least for 40 years; now drinks 6 pack per week Financial Resource Strain Answer Date Recorded How hard is it for you to pay for the very basics like Not hard at all 2018 food, housing, medical care, and heating? Food Insecurity Answer Date Recorded Within the past 12 months, you worried that your food would Never true 2018 run out before you got money to buy more. Within the past 12 months, the food you bought just didn't Never true 2018 last and you didn't have money to get more. Transportation Needs Answer Date Recorded In the past 12 months, has lack of transportation kept you from No 04/06/2019 medical appointments or from getting medications? In the past 12 months, has lack of transportation kept you from No 04/06/2019 meetings, work, or getting things needed for daily living? Sex Assigned at Date Recorded Not on file Job Start Date Occupation Industry Not on file Not on file Not on file Travel History Travel Start Travel End No recent travel history available. documented as of this encounter Last Filed Vital Signs Vital Sign Reading Time Taken Comments Blood Pressure 159/101 04/08/2019 11:24 AM CDT Pulse 109 04/08/2019 11:49 AM CDT Temperature 36.6 C (97.9 F) 04/08/2019 11:24 AM CDT Respiratory Rate 20 04/08/2019 11:49 AM CDT Oxygen Saturation 97% 04/08/2019 11:49 AM CDT Inhaled Oxygen Concentration - - Weight 70.8 kg (156 lb) 04/06/2019 7:17 AM CDT Height - - Body Mass Index 24.43 10/20/2016 4:42 PM CDT documented in this encounter Discharge Instructions AttachmentsThe following attachments cannot be sent through Care Everywhere.Chest Pain, Uncertain Cause (Croatian)Nitrofurantoin tablets or capsules (Croatian)Isosorbide Mononitrate tablets (Croatian)Carvedilol tablets ( Croatian)Atorvastatin tablets (Croatian)Aspirin, ASA chewable tablets (Croatian) documented in this encounter Progress Notes Gerry Mckeon RN - 04/07/2019 10:40 AM CDTCare Management Social Functional Assessment Patient Name: Roby Ortiz Age: [age] year old Sex: male Previous admit date: N/A Current diagnosis and co-morbidities: SOB Readmission Questions: Was patient discharged from any acute care hospital within the last 30 days: No Social Functional Assessment: Primary language spoken/preferred: Croatian Mental Status: Alert & Oriented to Person,Place & Time Information given by: Self Patient's support system: Child Name and number of support system: Albina Wilder [phone] Primary Compensation Business Partner: Other Name and phone number of primary caregiver: José Miguel Elder [phone] (partner) MPOA: No Living Arrangement: Home: single story Address of living arrangement : [place] [address] Persons living in home: Self Names & numbers of persons living in home: lives in [id number]-[id number] house Barriers to returning home: None Baseline functional status- ambulation: Requires minimal to moderate assistance Functional status-baseline personal care: Independent Baseline functional status- driving: Independent Baseline functional status- grocery shopping: Independent Functional status-baseline housekeeping: Independent Functional status-baseline meal prep: Independent Current functional status same as prior: Yes Do you have a PCP?: Yes Name of PCP: Dr Aiken Home Health Care Agency: No Provider Services: No Equipment: Cane;Shower Chair;Nebulizer Hemodialysis: No Community resources utilized: SSA/SSI/Medicaid Funding Resources: Medicare Replacement Medicare Replacement name and information: Soni Prescription coverage plan: Medicaid unlimited slots Pharmacy where meds are filled: Other Other pharmacy: [facility] [address] [place] [address] - [address] [place] [address] Anticipated services prior to disharge: Continue Medical Eval Expected mode of discharge transportation: Personal vehicle;Same as support system Additional Recommendations for DC: Wants a new cane Additional info required for discharge planning: Pending medical evaluation; Pending P/T O/T recommendation Recommended discharge plan: Home SFA Complete: Social Functional Assessment complete: Yes Alcohol Use Screening (AUDIT-C) How often do you have a drink containing alcohol?: 4 or more times a week SCORE: 4 How many drinks containing alcohol do you have on a typical day when you are drinking?: 1 or 2 drinks How often do you have six or more drinks on one occasion?: Weekly Total Score (AUDIT-C): 7 Did patient elect to have resources provided: No(patient declines resources) Role of Care Management explained. RAKAN Perry, RN Staple Processing Machine Operator [facility] Care Management [email or web address] Ryan Hernadez MD - 04/07/2019 6:48 AM BEATRIZTPGY- 1 Red Team Progress Note Date of Service: 04/07/2019 06:48 Chief Complaint: SOB, Chest Pressure 24-HOUR EVENTS: - I&O's: , net -1300. Net since admission: -1300 - Weight: 156 lbs. (Weight on admission: 156 lbs) - Tele: currently unplugged, sinus, trending 80's - presumed positive opiates - holding lasix due to creatinine bump and lack of volume overload - possible LHC on Wednesday - will pursue outside records SUBJECTIVE: Patient resting comfortably. Reports having some CP last night, but now resolved. Denies CP, SOB, nausea/vomiting, abdominal pain, GIL, fever, chills, night sweats. PHYSICAL EXAM: Temp: [35.7 C (96.3 F)-36.4 C (97.5 F)] Pulse: [81-110] Resp: [16-20] BP: (119-171)/(81-119) General: alert and oriented x 3; no apparent distress HEENT: pupils equal, round, reactive to light; extraocular movements intact; oropharynx clear; moistmucous membranes Lungs: decreased breath sounds Cardio: S1, S2 normal; no murmurs, rubs or gallops Abdomen: soft; non-tender; non-distended; normoactive bowel sounds Extremities: no cyanosis, clubbing or edema LABS/IMAGING - reviewed, pertinent results as below: Troponins 0.026 (0.068->0.049->0.032->0.026) Cr 1.71 (1.41->1.71) ASSESSMENT/PLAN Roby Ortiz is a 54 year old male with PMH as listed above, admitted to the hospital with: Acute on Chronic CHF Exacerbation | HFrEF 40-45% Reported non-obstructive CAD HTN Assessment: NYHA Class 3. Previous Echo 09/2016 / EF 40-45%. Home diuretics: none. Baseline NT-proBNP: unknown. Baseline creatinine: unknown. EDW: unknown Plan: - holding lasix due to bump in creatinine and lack of volume overload - hold ACEI lisinopril 20 mg qd due to possible ANGELINA - will consider starting Beta jeniffer and spironolactone after exacerbation resolves - start Lipitor 40 mg po QHS and titrate outpatient to 80 mg - start imdur 30 mg qd - c/w Asa 81 mg po daily - TTE, will f/u results - NTG 0.4mg SL q5min prn angina - Strict I/O, Daily weights, O2 per protocol, Telemetry, Fluid restrictions < 1500 ml, Cardiac/Lowsodium diet, Electrolytes: Keep K >4, Mg>2 - obtain OSH LHC records in AM ANGELINA on CKD vs CKD vs ANGELINA Baseline creatinine unknown. - Hold ACEI - Diurese as above - UA, UCx, UDS, Urine Urea, Urine Na, Urine Cr - Consider renal US if creatinine worsens - Strict I/O, daily weights, renally dose medications, avoid nephrotoxic agents COPD - c/w home combivent and tiotroprium - albuterol, duonebs PRN - SOB appears less likely to COPD exacerbation at this time Pain Not an active problem, Tylenol Prophylaxis: DVT- heparin Stress Ulcer: no indication for prophylaxis Code Status: addressed: full code Disposition: Discharge to: Same as prior Barriers: Possible LHC Expected date: 04/09+? Discharge follow-ups requested: PCP to titrate statin. Cardiology. Ryan Catalan MD Internal Medicine, PGY-1 [place] Team Pager #: [phone] END OF DAILY PROGRESS NOTE Hospital Course Roby Ortiz is a 54 year old male with a PMH of CHF (HFrEF 40-45%, last Echo 09/2016, last Cathat OSH), reported COPD, tobacco and alcohol abuse who presents with SOB and HFrEF exacerbation. Clinical presentation was concerning for ACS and patient was began on heparin gtt. Troponins downtrending, heparin gtt was stopped. Patient was diuresed and placed on asa, statin, imdur with goal of having LHC during admission. CURRENT MEDICATIONS - reviewed. Associated attestation - Colin Hamilton MD - 04/07/2019 5:[address] discussion with Dr. Catalan, I examined this patient. I agree with resident's note as written. No chest pain this morning. Trops unremarkable. Some st changes in EKG. Continue aggressive medical therapy. Will obtain records from OSH regarding LHC. Colin Hamilton MD [facility], Advanced Heart Failure / Mechanical Circulatory Support / Transplant. documented in this encounter Plan of Treatment Name Type Priority Associated Diagnoses Date/Time URINE DRUG (LCMSMS) - LAB Routine 04/06/2019 8:41 PM CDT SYNTHETIC OPIATES PANEL URINE DRUG (LCMSMS) - LAB Routine 04/06/2019 8:41 PM CDT OPIATES PANEL Name Type Priority Associated Diagnoses Order Schedule EKG-12 LEAD ROUTINE HEART STATION PEÑA ONCE for 1 Occurrences starting 04/06/2019 until 04/06/2019 aPTT (for use with LAB Routine FOR FOLLOW-UP TESTING Heparin Practice until discontinued Guideline). Note: starting 04/06/2019, 1 Draw and Send all completed Lab STAT. EKG-12 LEAD ROUTINE HEART STATION PEÑA ONCE for 1 Occurrences starting 04/06/2019 until 04/06/2019 BASIC METABOLIC LAB Routine EVERY MORNING AT 0400 PANEL (NA, K, CL, until discontinued CO2, GLUCOSE, BUN, starting 04/07/2019, 2 CREATININE, CA) completed MAGNESIUM LAB Routine EVERY MORNING AT 0400 until discontinued starting 04/07/2019, 2 completed URINE DRUG (LCMSMS) LAB Routine ONCE for 1 Occurrences - SYNTHETIC OPIATES starting 04/07/2019 PANEL until 04/07/2019, 1 completed URINE DRUG (LCMSMS) LAB Routine ONCE for 1 Occurrences - OPIATES PANEL starting 04/07/2019 until 04/07/2019, 1 completed Health Maintenance Due Date Last Done Comments HEPATITIS C (HCV) SCREEN 1965 PNEUMOCOCCAL 0-64 YEARS COMBINED SERIES (1 of 1 - 1970 PPSV23) DTaP,Tdap,and Td Vaccines (1 - Tdap) 1983 COLONOSCOPY 2014 Zoster Recombinant Vaccine (SHINGRIX) (1 of 2) 2014 LUNG CANCER SCREEN: Recommended for age 55-80 with 30 + 2019 pack year history INFLUENZA VACCINE (#1) 2019 documented as of this encounter Procedures Procedure Name Priority Date/Time Associated Comments Diagnosis BASIC METABOLIC PANEL Routine 04/08/2019 5:48 Results for this (NA, K, CL, CO2, AM CDT procedure are in GLUCOSE, BUN, the results CREATININE, CA) section. MAGNESIUM Routine 04/08/2019 5:48 Results for this AM CDT procedure are in the results section. ECHO ROUTINE W/DOPPLER PEÑA 04/07/2019 9:37 Acute on chronic COLOR AM CDT combined systolic and diastolic congestive heart failure Chest pain, unspecified type SOB (shortness of breath) BASIC METABOLIC PANEL Routine 04/07/2019 3:29 Results for this (NA, K, CL, CO2, AM CDT procedure are in GLUCOSE, BUN, the results CREATININE, CA) section. TROPONIN I Routine 04/07/2019 3:29 Results for this AM CDT procedure are in the results section. MAGNESIUM Routine 04/07/2019 3:29 Results for this AM CDT procedure are in the results section. SODIUM, URINE RANDOM Routine 04/06/2019 8:41 Results for this PM CDT procedure are in the results section. UREA NITROGEN, URINE Routine 04/06/2019 8:41 Results for this RANDOM PM CDT procedure are in the results section. CREATININE, URINE Routine 04/06/2019 8:41 Results for this RANDOM PM CDT procedure are in the results section. URINE CULTURE Routine 04/06/2019 8:41 Results for this PM CDT procedure are in the results section. URINALYSIS Routine 04/06/2019 8:41 Results for this PM CDT procedure are in the results section. GALV/CLC ONLY - URINE Routine 04/06/2019 8:41 Results for this DRUG (IMMUNOASSAY) - PM CDT procedure are in COMPREHENSIVE DRUG the results SCREEN section. ACTIVATED PARTIAL Routine 04/06/2019 8:34 Results for this THRMPLAS CRISTIAN PM CDT procedure are in the results section. TROPONIN I Routine 04/06/2019 8:34 Results for this PM CDT procedure are in the results section. PROCALCITONIN Routine 04/06/2019 1:11 Results for this PM CDT procedure are in the results section. ACTIVATED PARTIAL Routine 04/06/2019 1:11 Results for this THRMPLAS CRISTIAN PM CDT procedure are in the results section. TROPONIN I Routine 04/06/2019 1:11 Results for this PM CDT procedure are in the results section. XR CHEST 2 VW STAT 04/06/2019 8:27 Chest pain on Results for this AM CDT breathing procedure are in the results section. CBC WITH DIFFERENTIAL STAT 04/06/2019 7:39 Chest pain on Results for this AM CDT breathing procedure are in the results section. N-TERMINAL PRO-BNP STAT 04/06/2019 7:39 Chest pain on Results for this AM CDT breathing procedure are in the results section. ACTIVATED PARTIAL STAT 04/06/2019 7:39 Chest pain on Results for this THRMPLAS CRISTIAN AM CDT breathing procedure are in the results section. PROTHROMBIN TIME / INR STAT 04/06/2019 7:39 Chest pain on Results for this AM CDT breathing procedure are in the results section. GLYCOSYLATED Add-on 04/06/2019 7:39 Results for this HEMOGLOBIN (A1C) AM CDT procedure are in the results section. CBC WITH DIFF Routine 04/06/2019 7:39 Chest pain on Results for this AM CDT breathing procedure are in the results section. LIPID PANEL Add-on 04/06/2019 7:39 Results for this (06423)(TOTAL AM CDT procedure are in CHOLESTEROL, the results TRIGLYCERIDES, HDL) section. COMP. METABOLIC PANEL STAT 04/06/2019 7:39 Chest pain on Results for this (22445) AM CDT breathing procedure are in the results section. THYROID STIMULATING Add-on 04/06/2019 7:39 Results for this HORMONE AM CDT procedure are in the results section. TROPONIN I STAT 04/06/2019 7:39 Chest pain on Results for this AM CDT breathing procedure are in the results section. MAGNESIUM Add-on 04/06/2019 7:39 Results for this AM CDT procedure are in the results section. LIPASE STAT 04/06/2019 7:39 Chest pain on Results for this AM CDT breathing procedure are in the results section. PHOSPHORUS Add-on 04/06/2019 7:39 Results for this AM CDT procedure are in the results section. EKG-12 LEAD STAT 04/06/2019 7:38 AM CDT EKG-12 LEAD Routine 04/06/2019 7:22 AM CDT NOTICE OF PRIVACY Routine 04/06/2019 7:08 PRACTICES AM CDT documented in this encounter Results MAGNESIUM (04/08/2019 5:48 AM CDT) MAGNESIUM 2.0 1.7 - 2.4 mg/dL [facility] SERVICES Specimen Blood - ARM, RIGHT Performing Organization Address City/State/Zipcode Phone Number [facility] CLIA: [id number], [address] [facility] [place] [address] [phone] [facility] BASIC METABOLIC PANEL (NA, K, CL, CO2, GLUCOSE, BUN, CREATININE, CA) (2018 5:48 AM CDT) NA 136 135 - 145 [facility] mmol/L SERVICES K 4.0 3.5 - 5.0 [facility] mmol/L SERVICES CL 104 98 - 108 mmol/L [facility] CO2 TOTAL 23 23 - 31 mmol/L [facility] AGAP 9 2 - 16 [facility] BUN 24 (H) 7 - 23 mg/dL [facility] GLUCOSE 92 70 - 110 mg/dL [facility] CREATININE 1.43 (H) 0.60 - 1.25 [facility] mg/dL SERVICES CALCIUM 9.1 8.6 - 10.6 [facility] mg/dL SERVICES eGFR Calculation 51.3 mL/min/1.73m2 [facility] (Non- SERVICES Iraqi) eGFR Calculation 62.2 mL/min/1.73m2 [facility] () SERVICES Specimen Blood - ARM, RIGHT Narrative Performed At Association of Glomerular Filtration Rate (GFR) and Staging [facility] of Kidney Disease* + + + + | GFR (mL/min/1.73 m2)| With Kidney Damage|Without Kidney Damage + + + + |>90|Stage one| Normal + + + + |60-89|Stage two| Decreased GFR + + + + |30-59|Stage three| Stage three + + + + |15-29|Stage four | Stage four + + + + |<15 (or dialysis)|Stage five | Stage five + + + + *Each stage assumes the associated GFR level has been in effect for at least three months.Stages 1 to 5, with or without kidney disease, indicate chronic kidney disease. Notes: Determination of stages one and two (with eGFR >59mL/min/1.73 m2) requires estimation of kidney damage for at least three months as defined by structural or functional abnormalities of the kidney, manifested by either: Pathological abnormalities or Markers of kidney damage (including abnormalities in the composition of the blood or urine or abnormalities in imaging tests). Performing Organization Address [facility]/Zipcode Phone Number [facility] CLIA: [id number], [address] [place] [address] [facility] MAGNESIUM (04/07/2019 3:29 AM CDT) MAGNESIUM 2.1 1.7 - 2.4 mg/dL [facility] Specimen Blood - ARM, RIGHT Performing Organization Address [facility] Phone Number [facility] CLIA: [id number], [address] [place] [address] [facility] BASIC METABOLIC PANEL (NA, K, CL, CO2, GLUCOSE, BUN, CREATININE, CA) (2018 3:29 AM CDT) NA 134 (L) 135 - 145 [facility] mmol/L SERVICES K 3.8 3.5 - 5.0 [facility] mmol/L SERVICES CL 99 98 - 108 mmol/L [facility] CO2 TOTAL 26 23 - 31 mmol/L [facility] AGAP 9 2 - 16 [facility] BUN 29 (H) 7 - 23 mg/dL [facility] GLUCOSE 112 (H) 70 - 110 mg/dL [facility] CREATININE 1.71 (H) 0.60 - 1.25 [facility] mg/dL SERVICES CALCIUM 9.1 8.6 - 10.6 [facility] mg/dL SERVICES eGFR Calculation 41.8 mL/min/1.73m2 [facility] (Non- SERVICES Iraqi) eGFR Calculation 50.6 mL/min/1.73m2 [facility] () SERVICES Specimen Blood - ARM, RIGHT Narrative Performed At [facility] of Glomerular Filtration Rate (GFR) and Staging [facility] of Kidney Disease* + + + + | GFR (mL/min/1.73 m2)| With Kidney Damage|Without Kidney Damage + + + + |>90|Stage one| Normal + + + + |60-89|Stage two| Decreased GFR + + + + |30-59|Stage three| Stage three + + + + |15-29|Stage four | Stage four + + + + |<15 (or dialysis)|Stage five | Stage five + + + + *Each stage assumes the associated GFR level has been in effect for at least three months.Stages 1 to 5, with or without kidney disease, indicate chronic kidney disease. Notes: Determination of stages one and two (with eGFR >59mL/min/1.73 m2) requires estimation of kidney damage for at least three months as defined by structural or functional abnormalities of the kidney, manifested by either: Pathological abnormalities or Markers of kidney damage (including abnormalities in the composition of the blood or urine or abnormalities in imaging tests). Performing Organization Address [facility] Phone Number [facility] CLIA: [id number], [address] [place] [address] [phone] [facility] TROPONIN I (04/07/2019 3:29 AM CDT) TROPONIN I 0.026 <=0.034 ng/mL [facility] Specimen Blood - ARM, RIGHT Narrative Performed At Equal or Less than 0.034 ng/ml---Normal [facility] Note: Cardiac troponin begins to rise 3-4 hours after the onset of ischemia. Repeat in 4-6 hours if the sample was drawn within 3-4 hours of the onset of the symptom and found normal. Between 0.035 and 0.120 ng/mL--- Borderline. Questionable myocardial injury or necrosis Note: Serial measurement may be necessary to confirm or exclude the diagnosis of myocardial injury or necrosis; Clinical correlation (symptoms, EKGs, imaging studies, and others) required; Repeat in 4-6 hours if clinically indicated. Equal or Higher than 0.121 ng/mL---Abnormal. Myocardial Injury or Necrosis Likely Biotin has been reported to cause a negative bias, interpret results relative to patient's use of biotin. Performing Organization Address [facility] Phone Number [facility] CLIA: [id number], [address] [place] [address] [facility] URINE CULTURE (04/06/2019 8:41 PM CDT) URINE CULTURE No aerobic growth [facility] (< 1000 CFU/mL) SERVICES Specimen Urine - URINE, CLEAN CATCH Performing Organization Address [facility] Phone Number [facility] CLIA: [id number], [address] [place] [address] [facility] URINALYSIS (04/06/2019 8:41 PM CDT) APPEARANCE Clear Clear [facility] COLOR Yellow Yellow [facility] PH 6.0 4.8 - 8.0 [facility] SP GRAVITY 1.008 1.003 - 1.030 [facility] GLU U QUAL Normal Normal [facility] BLOOD Negative Negative [facility] KETONES Negative Negative [facility] PROTEIN Negative Negative [facility] UROBILIN Normal Normal [facility] BILIRUBIN Negative Negative [facility] NITRITE Negative Negative [facility] LEUK EDITH Negative Negative [facility] RBC/HPF 0 0 - 3 HPF [facility] WBC/HPF 0 0 - 5 HPF [facility] BACTERIA Negative Negative [facility] MUCOUS Slight (A) Negative LPF [facility] HYAL CAST 4 (H) <=2 LPF [facility] Specimen Urine - URINE, CLEAN CATCH Performing Organization Address [facility] Phone Number [facility] CLIA: [id number], [address] [place] [address] [facility] GALV/CLC ONLY - URINE DRUG (IMMUNOASSAY) - COMPREHENSIVE DRUG SCREEN (2018 8:41 PM CDT) AMPHET Negative Negative [facility] CHANDRIKA U Negative Negative [facility] BENZO U Negative Negative [facility] Cocaine Metabolite Negative Negative [facility] METHADONE Negative Negative [facility] OPIATES Presumptive Negative [facility] Positive (A) SERVICES PCP Negative Negative [facility] THC Negative Negative [facility] Specimen Urine - URINE, CLEAN CATCH Narrative Performed At Urine Drug Cutoff Ranges [facility] Cocaine: 150 ng/mL Benzodiazepines: 200 ng/mL Methadone: 300 ng/mL Amphetamine: 1,000 ng/mL Opiates: 300 ng/mL Cannabinoids:50 ng/mL Phencyclidine: 25 ng/mL Barbiturates:200 ng/mL The results are to be used only for medical (i.e., treatment) purposes. Unconfirmed screening results must not be used for non-medical purposes (e.g., employment testing, legal testing). Performing Organization Address [facility] Phone Number [facility] CLIA: [id number], [address] [place] [address] [phone] [facility] UREA NITROGEN, URINE RANDOM (04/06/2019 8:41 PM CDT) UREA N UR 264 mg/dL [facility] Specimen Urine - URINE, CLEAN CATCH Performing Organization Address [facility] Phone Number [facility] CLIA: [id number], [address] [place] [address] [facility] CREATININE, URINE RANDOM (04/06/2019 8:41 PM CDT) CREAT U 75.8 mg/dL [facility] Specimen Urine - URINE, CLEAN CATCH Performing Organization Address [facility] Phone Number [facility] CLIA: [id number], [address] [place] [address] [phone] [facility] SODIUM, URINE RANDOM (04/06/2019 8:41 PM CDT) NA URINE 39 mmol/L [facility] Specimen Urine - URINE, CLEAN CATCH Performing Organization Address [facility] Phone Number [facility] CLIA: [id number], [address] [place] [address]34 [phone] [facility] aPTT (for use with Heparin Practice Guideline). Note: Draw and Send all Lab STAT. (04/06/2019 8:34 PM CDT) APTT Patient 46 (H) 26 - 36 Seconds [facility] Specimen Blood - ARM, RIGHT Performing Organization Address [facility] [place] Phone Number [facility] CLIA: [id number], [address] [place] [address] [facility] TROPONIN I (04/06/2019 8:34 PM CDT) TROPONIN I 0.032 <=0.034 ng/mL [facility] Specimen Blood - ARM, RIGHT Narrative Performed At Equal or Less than 0.034 ng/ml---Normal [facility] Note: Cardiac troponin begins to rise 3-4 hours after the onset of ischemia. Repeat in 4-6 hours if the sample was drawn within 3-4 hours of the onset of the symptom and found normal. Between 0.035 and 0.120 ng/mL--- Borderline. Questionable myocardial injury or necrosis Note: Serial measurement may be necessary to confirm or exclude the diagnosis of myocardial injury or necrosis; Clinical correlation (symptoms, EKGs, imaging studies, and others) required; Repeat in 4-6 hours if clinically indicated. Equal or Higher than 0.121 ng/mL---Abnormal. Myocardial Injury or Necrosis Likely Biotin has been reported to cause a negative bias, interpret results relative to patient's use of biotin. Performing Organization Address City/[facility] Phone Number [facility] CLIA: [id number], [address] [place] [address] [facility] aPTT (04/06/2019 1:11 PM CDT) APTT Patient 32 26 - 36 Seconds [facility] Specimen Blood - HAND, RIGHT Performing Organization Address [facility] [place] Phone Number [facility] CLIA: [id number], [address] [place] [address] [facility] TROPONIN I (04/06/2019 1:11 PM CDT) TROPONIN I 0.049 (H) <=0.034 ng/mL [facility] Specimen Blood - HAND, RIGHT Narrative Performed At Equal or Less than 0.034 ng/ml---Normal [facility] Note: Cardiac troponin begins to rise 3-4 hours after the onset of ischemia. Repeat in 4-6 hours if the sample was drawn within 3-4 hours of the onset of the symptom and found normal. Between 0.035 and 0.120 ng/mL--- Borderline. Questionable myocardial injury or necrosis Note: Serial measurement may be necessary to confirm or exclude the diagnosis of myocardial injury or necrosis; Clinical correlation (symptoms, EKGs, imaging studies, and others) required; Repeat in 4-6 hours if clinically indicated. Equal or Higher than 0.121 ng/mL---Abnormal. Myocardial Injury or Necrosis Likely Biotin has been reported to cause a negative bias, interpret results relative to patient's use of biotin. Performing Organization Address [facility] Phone Number [facility] CLIA: [id number], [address] [place] [address] [phone] [facility] PROCALCITONIN (04/06/2019 1:11 PM CDT) Procalcitonin 0.03 <0.07 ng/mL [facility] Specimen Blood - HAND, RIGHT Narrative Performed At INTERPRETATION OF PROCALCITONIN RESULTS IN ADULTS >=18 YEARS [facility] OF AGE Initiation and discontinuation of antibiotics on patients with suspected or confirmed Lower Respiratory Tract Infection in Adults >=18 years of age. + + + + + |Procalcitonin |Interpretation|Antibiotic |Considerations |ng/mL ||recommendation | + + + + + | <0.1 | Bacterial| Strongly| || infection very | discouraged | Overruling: || unlikely | | Clinically unstable + + + + High risk for adverse | <0.25| Bacterial| Discouraged | outcome || infection| | SEE IMPORTANT NOTE || unlikely | | + + + + + | >=0.25 | Bacterial| Encouraged| || infection| | || likely | | Consider treatment failure + + + + if levels does not decrease | >0.5 | Bacterial| Strongly| appropriately || infection very | encouraged| || likely | | + + + + + Discontinuation of antibiotics in high-acuity patients with suspected or confirmed sepsis in Adults >=18 years of age. + + + + + |Procalcitonin |Interpretation|Antibiotic |Considerations |ng/mL ||recommendation | + + + + + | <0.25| Bacterial| Strongly| || infection very | discouraged | Overruling: || unlikely | | Clinically unstable + + + + High risk for adverse | <0.5 or drop | Bacterial| Discouraged | outcome | >80% from| infection| | SEE IMPORTANT NOTE | highest PCT| unlikely | | | level|| | + + + + + | >=0.5| Bacterial| Encouraged| || infection| | || likely | | Consider treatment failure + + + + if levels does not decrease | >1.0 | Bacterial| Strongly| appropriately || infection very | encouraged| || likely | | + + + + + Percentage of drop of Procalcitonin calculation for Discontinuation of antibiotics in high-acuity patients with suspected or confirmed sepsis in Adults >=18 years of age. Procalcitonin highest{}-Procalcitonin current{} Delta Procalcitonin= _ x100% Procalcitonin current {} IMPORTANT NOTE: Procalcitonin may be elevated without bacterial infection by physiologic stress related to trauma, miller, chronic dialysis, metastatic cancer, surgery in the past seven days, malaria, some fungal infections, and some forms of vasculitis. The interpretation algorithm may not apply to patients with immunosuppression (equivalent of >10 mg of prednisone daily), HIV with CD4 cell count < 350 cells/mm3, active malignancy on systemic chemotherapy, solid organ transplant or hematopoietic stem cell transplantation, or hospital acquired pneumonia. Additionally, some clinical trials of procalcitonin have excluded patients with shock requiring vasopressor use, acute respiratory failure requiring mechanical ventilation, or those with known lung abscess/empyema. For further information please refer to: [email or web address] Performing Organization Address City/State/Zipcode Phone Number [facility] CLIA: [id number], [address] [place] [address] [facility] CHEST 2 VIEWS (04/06/2019 8:27 AM CDT) Specimen Narrative Performed At HISTORY:Chest pain. PACS/VR/DOSE TECHNIQUE: PA and lateral views of the chest are obtained. Comparison is made with 10/20/2016 study. FINDINGS: COPD, calcified granulomas in the left upper lung noted with superimposed bibasilar pulmonary congestion, slightly more in the right lung base. Cardiac size is upper normal and there is mild bibasilar pulmonary edema. Minimal bilateral pleural effusion suspected. Old, healed fracture deformity in some of the left posterior ribs noted. CONCLUSIONS: Mild COPD, mild bibasilar pulmonary edema. Some of the congestion in both lower lungs could be pulmonary infection, possibly viral type with minimal pleural effusion. Procedure Note [facility], Radiant Results Inft User - 04/06/2019 8:30 AM CDT HISTORY: Chest pain. TECHNIQUE: PA and lateral views of the chest are obtained. Comparison is made with 10/20/2016 study. FINDINGS: COPD, calcified granulomas in the left upper lung noted with superimposed bibasilar pulmonary congestion, slightly more in the right lung base. Cardiac size is upper normal and there is mild bibasilar pulmonary edema. Minimal bilateral pleural effusion suspected. Old, healed fracture deformity in some of the left posterior ribs noted. CONCLUSIONS: Mild COPD, mild bibasilar pulmonary edema. Some of the congestion in both lower lungs could be pulmonary infection, possibly viral type with minimal pleural effusion. Performing Organization Address City/State/Zipcode Phone Number PACS/VR/DOSE PHOSPHORUS (04/06/2019 7:39 AM CDT) PHOSPHORUS 2.6Comment: Slight 2.5 - 5.0 mg/dL [facility] LABORATORY Specimen Blood - VENOUS Performing Organization Address City/State/Zipcode Phone Number [facility] CLIA: [id number], [address] [place] [address] MAGNESIUM (04/06/2019 7:39 AM CDT) MAGNESIUM 2.1Comment: Slight 1.7 - 2.4 mg/dL [facility] LAB[facility]ATORY Specimen Blood - VENOUS Performing Organization Address City/[facility]/Zipcode Phone Number [facility] CLIA: [id number], [address] [place] [address] GLYCOSYLATED HEMOGLOBIN (A1C) (04/06/2019 7:39 AM CDT) HGB A1C 5.1 4.0 - 6.0 % NGSP [facility] Specimen Blood - VENOUS Narrative Performed At %A1C (NGSP) Interpretation (ADA) [facility] 4.8-5.6 Normal or (Non-Diabetic Range) 5.7-6.4 Increased Risk (Pre-Diabetic) >6.5Diabetes Indicated Performing Organization Address City/[facility] Phone Number [facility] CLIA: [id number], [address] [place] [id number] [address] THYROID STIMULATING HORMONE (04/06/2019 7:39 AM CDT) TSH 2.26 0.45 - 4.70 mIU/L [facility] Specimen Blood - VENOUS Performing Organization Address [facility] Phone Number [facility] CLIA: [id number], [address] [place] [address] LIPID PANEL ([id number])(TOTAL CHOLESTEROL, TRIGLYCERIDES, HDL) (04/06/2019 7:39 AM CDT) CHOL 187 120 - 200 mg/dL [facility] HDL 61 >40 mg/dL [facility] HDLC RATIO 3.1 <=5.0 [facility] TRIG 137 30 - 170 mg/dL [facility] LDL CHOL 99 <=160 mg/dL [facility] VLDL 27 5 - 60 mg/dL [facility] Specimen Blood - VENOUS Performing Organization Address [facility] Phone Number [facility] CLIA: [id number], [address] [place] [id number] N-TERMINAL PRO-BNP (04/06/2019 7:39 AM CDT) NT-proBNP 13,400 (H) <=125 pg/mL [facility] Specimen Blood - VENOUS Narrative Performed At Biotin has been reported to cause a negative [facility] bias, interpret results relative to patient's use of biotin. Performing Organization Address City/[facility] Phone Number [facility] CLIA: [id number], [address] [place] [address] CBC WITH DIFFERENTIAL (04/06/2019 7:39 AM CDT) WBC 12.90 (H) 4.20 - 10.70 [facility] 10*3/L HOSPITAL LABORATORY RBC 4.59 4.26 - 5.52 [facility] 10*6/L [facility] HGB 14.9 12.2 - 16.4 [facility] g/dL [facility] HCT 44.0 38.4 - 49.3 % [facility] MCV 95.9 (H) 81.7 - 95.6 fL [facility] MCH 32.5 26.1 - 32.7 pg [facility] MCHC 33.9 31.2 - 35.0 [facility] g/dL [facility] RDW-SD 45.2 38.5 - 51.6 fL [facility] RDW-CV 12.8 12.1 - 15.4 % [facility] PLT 269 150 - 328 [facility] 10*3/L [facility] MPV 11.0 9.8 - 13.0 fL [facility] NRBC/100 WBC 0.0 0.0 - 10.0 /100 [facility] WBCs [facility] NRBC x10^3 <0.01 10*3/L [facility] GRAN MAT (NEUT) % 74.5 % [facility] IMM GRAN % 0.40 % [facility] LYMPH % 15.1 % [facility] MONO % 8.6 % [facility] EOS % 0.8 % [facility] BASO % 0.6 % [facility] GRAN MAT x10^3(ANC) 9.61 (H) 1.99 - 6.95 [facility] 10*3/uL [facility] IMM GRAN x10^3 0.05 0.00 - 0.06 [facility] 10*3/uL HOSPITAL [facility] LYMPH x10^3 1.95 1.09 - 3.23 [facility] 10*3/uL [facility]ITAL [facility] MONO x10^3 1.11 (H) 0.36 - 1.02 [facility] 10*3/uL [facility]PITAL [facility] EOS x10^3 0.10 0.06 - 0.53 [facility] 10*3/uL HOSPITAL [facility] BASO x10^3 0.08 0.01 - 0.09 [facility] 10*3/uL [facility] Specimen Blood - VENOUS Performing Organization Address City/[facility] Phone Number [facility] CLIA: [id number], [address] [place] [address] LIPASE, SERUM (04/06/2019 7:39 AM CDT) LIPASE 48 0 - 220 U/L [facility] Specimen Blood - VENOUS Performing Organization Address City/[facility] Phone Number [facility] CLIA: [id number], [address] [place] [address] COMP. METABOLIC PANEL ([id number]) (04/06/2019 7:39 AM CDT) NA 141 135 - 145 [facility] mmol/L [facility] K 4.9 3.5 - 5.0 [facility] mmol/L [facility] CL 105 98 - 108 mmol/L [facility] CO2 TOTAL 23 23 - 31 mmol/L [facility] AGAP 13 2 - 16 [facility] BUN 16 7 - 23 mg/dL [facility] GLUCOSE 106 70 - 110 mg/dL [facility] CREATININE 1.41 (H) 0.60 - 1.25 [facility] mg/dL [facility] TOTAL BILI 0.9 0.1 - 1.1 mg/dL [facility] CALCIUM 10.1 8.6 - 10.6 [facility] mg/dL [facility] T PROTEIN 9.2 (H) 6.3 - 8.2 g/dL [facility] ALBUMIN 5.1 (H) 3.5 - 5.0 g/dL [facility] ALK PHOS 88 34 - 122 U/L [facility] ALT(SGPT) 34 9 - 51 U/L [facility] AST(SGOT) 51 (H) 13 - 40 U/L [facility] eGFR Calculation 52.2 mL/min/1.73m2 [facility] ([facility]) eGFR Calculation 63.2 mL/min/1.73m2 [facility] ([facility] Specimen Blood - VENOUS Narrative Performed At Association of Glomerular Filtration Rate (GFR) [facility] and Staging of Kidney Disease* + + +- + | GFR (mL/min/1.73 m2)| With Kidney Damage|Without Kidney Damage + + +- + |>90| Stage one| Normal + + +- + |60-89|S tage two| Decreased GFR + + +- + |30-59|S tage three| Stage three + + +- + |15-29|S tage four | Stage four + + +- + |<15 (or dialysis)|Stage five | Stage five + + +- + *Each stage assumes the associated GFR level has been in effect for at least three months.Stages 1 to 5, with or without kidney disease, indicate chronic kidney disease. Notes: Determination of stages one and two (with eGFR >59mL/min/1.73 m2) requires estimation of kidney damage for at least three months as defined by structural or functional abnormalities of the kidney, manifested by either: Pathological abnormalities or Markers of kidney damage (including abnormalities in the composition of the blood or urine or abnormalities in imaging tests). Performing Organization Address City/[facility] Phone Number [facility] CLIA: [id number], [address] [place] [address] PROTHROMBIN TIME / INR (04/06/2019 7:39 AM CDT) [facility] PROTIME PATIENT 12.6 12.0 - 14.7 [facility] LABORATORY INR 1.0Comment: Normal [facility] INR <1.1; Warfarin [facility] Therapeutic range LABORATORY 2.0 to 3.0 or 2.5 to 3.5, depending upon the indications. Specimen Blood - VENOUS Performing Organization Address [facility]/Zipcode Phone Number [facility] CLIA: [id number], [address] [place] [address] [address] aPTT (04/06/2019 7:39 AM CDT) [facility] APTT Patient 30 23 - 38 Seconds [facility] Specimen Blood - VENOUS Narrative Performed At The [facility] patient population mean normal value [facility] for aPTT is 30 seconds. Performing Organization Address [facility]/State/Zipcode Phone Number [facility] CLIA: [id number], [address] [place] [address] TROPONIN I (04/06/2019 7:39 AM CDT) TROPONIN I 0.068 (H) <=0.034 ng/mL [facility] Specimen Blood - VENOUS Narrative Performed At Equal or Less than 0.034 ng/ml---Normal [facility] Note: Cardiac troponin begins to rise 3-4 hours after the onset of ischemia. Repeat in 4-6 hours if the sample was drawn within 3-4 hours of the onset of the symptom and found normal. Between 0.035 and 0.120 ng/mL--- Borderline. Questionable myocardial injury or necrosis Note: Serial measurement may be necessary to confirm or exclude the diagnosis of myocardial injury or necrosis; Clinical correlation (symptoms, EKGs, imaging studies, and others) required; Repeat in 4-6 hours if clinically indicated. Equal or Higher than 0.121 ng/mL---Abnormal. Myocardial Injury or Necrosis Likely Biotin has been reported to cause a negative bias, interpret results relative to patient's use of biotin. Performing Organization Address City/State/Zipcode Phone Number [facility] CLIA: [id number], [address] [place] [address] documented in this encounter Visit Diagnoses Diagnosis Acute on chronic combined systolic and diastolic congestive heart failure - Primary Acute on chronic combined systolic and diastolic heart failure Chest pain on breathing Painful respiration Chest pain, unspecified type SOB (shortness of breath) Shortness of breath documented in this encounter Administered Medications Medication Order MAR Action Action Date Dose Rate Site acetaminophen (TYLENOL) tablet Given 04/08/2019 12:32 AM CDT 650 mg 650 mg 650 mg, Oral, Q6HPRN, Starting Krystyna 04/06/19 at 1258, Until Discontinued, Routine, Pain (scale 1-3) albuterol (VENTOLIN) inhaler 2 Puff 2 Puff, Inhalation, Q6HPRN, Starting Krystyna 04/06/19 at 1355, Until Discontinued, Routine, Shortness of Breath albuterol-ipratropium (COMBIVENT RESPIMAT) Given 04/08/2019 11:38 AM CDT 1 Puff 20-100 mcg/actuation inhaler 1 Puff 1 Puff, Inhalation, Q6H, First dose on Wed04/06/19 at 1800, Until Discontinued, Routine Given 04/08/2019 8:35 AM CDT 1 Puff Given 04/08/2019 12:17 AM CDT 1 Puff aspirin chewable tablet 81 mg Given 04/08/2019 8:28 AM CDT 81 mg 81 mg, Oral, DAILY, First dose on Wed04/07/19 at 0900, Until Discontinued, Routine atorvastatin (LIPITOR) tablet 40 mg Given 04/07/2019 8:38 PM CDT 40 mg 40 mg, Oral, QHS, First dose on Wed04/06/19 at 2100, Until Discontinued, Routine Given 04/06/2019 8:30 PM CDT 40 mg carvedilol (COREG) tablet 6.25 mg Given 04/08/2019 11:55 AM CDT 6.25 mg 6.25 mg, Oral, BID MEALS, First dose on Wed04/08/19 at 1130, Until Discontinued, Routine ipratropium-albuterol (DUONEB) 0.5 mg-3 mg(2.5 mg base)/3 mL nebulizer solution 3 mL 3 mL, Inhalation, QIDPRN, Starting Wed04/06/19 at 1355, Until Discontinued, Routine, Wheezing isosorbide mononitrate (IMDUR) 24 hr tablet Given 04/08/2019 8:28 AM CDT 30 mg 30 mg 30 mg, Oral, DAILY, First dose on Wed04/06/19 at 1330, Until Discontinued, Routine Given 04/07/2019 10:28 AM CDT 30 mg Given 04/06/2019 1:56 PM CDT 30 mg nitroglycerin (NITROSTAT) sublingual tablet 0.4 mg 0.4 mg, Sublingual, Q5MIN PRN, Starting Wed04/06/19 at 1318, Until Discontinued , Routine, Chest pain sodium chloride (NS) injection 5 mL 5 mL, Intravenous, PRN, Starting Wed04/06/19 at 0736, Until Discontinued, Routine, IV line flushing tiotropium (SPIRIVA) inhalation 18 mcg Given 04/07/2019 6:37 AM CDT 18 mcg 18 mcg, Inhalation, DAILY, First dose on Wed04/07/19 at 0900, Until Discontinued, Routine, manufacturing team member approving Restricted medication: ALMUSTAFA, AHMED JAIR traMADol (ULTRAM) tablet 50 mg Given 04/06/2019 11:58 PM CDT 50 mg 50 mg, Oral, Q8HPRN, Starting Krystyna 04/06/19 at 1258, Until 04/08/19 at 1257, Routine, Pain (scale 4-6) Medication Order MAR Action Action Date Dose Rate Site aspirin tablet 325 mg Given 04/06/2019 9:01 AM CDT 325 mg 325 mg, Oral, ONCE, 1 dose, [facility] 04/06/19 at 1000, STAT furosemide (LASIX) injection 40 mg Given 04/06/2019 9:15 AM CDT 40 mg 40 mg, IV Push, ONCE, 1 dose, [facility] 04/06/19 at 1015, PEÑA furosemide (LASIX) injection 40 mg Given 04/06/2019 8:31 PM CDT 40 mg 40 mg, IV Push, Q12H, First dose on Krystyna 04/06/19 at 2000, Until Discontinued, PEÑA heparin 1000 unit/mL injection Soln Given 04/06/2019 2:43 PM CDT 4,000 Units 4,000 Units 4,000 Units, IV Push, ONCE, 1 dose, Krystyna 04/06/19 at 1315, Routine heparin 25,000 Rate Change 04/07/2019 12:00 AM 13.418 Units/kg/hr 9.5 mL/ hr unit/250 mL (Premixed CDT Bag) in D5W weight based dosing ACS protocol 12 Units/kg/hr 70.8 kg (8.496 mL/hr, rounded to 8.5 mL/hr), IV Infusion, CONTINUOUS, Starting Krystyna 04/06/19 at 1415, Until Wed04/07/19 at 0528 New Bag 04/06/2019 2:43 PM CDT 12 Units/kg/hr 8.5 mL/hr KCL (KLOR-CON M20) tablet 20 mEq Given 04/08/2019 8:28 AM CDT 20 mEq 20 mEq, Oral, ONCE, 1 dose, 04/08/19 at 0800, Routine KCL (KLOR-CON M20) tablet 40 mEq Given 04/07/2019 10:28 AM CDT 40 mEq 40 mEq, Oral, ONCE, 1 dose, Wed04/07/19 at 0800, Routine metoprolol (LOPRESSOR) injection 5 mg Given 04/06/2019 9:00 AM CDT 5 mg 5 mg, Slow IV Push, ONCE, 1 dose, Krystyna 04/06/19 at 1000, PEÑA morpHINE injection 4 mg Given 04/06/2019 9:01 AM CDT 4 mg 4 mg, Slow IV Push, ONCE, 1 dose, Krystyna 04/06/19 at 1000, STAT sulfur hexafluoride microsphr (LUMASON) Given 04/07/2019 10:00 AM CDT 5 mL injection 5 mL 5 mL, Intravenous, ONCE, 1 dose, 04/07/19 at 1130, Routine documented in this encounter Insurance Payer Benefit Plan / Subscriber ID Effective Phone Address Type Group Dates ZACHARIAH SONI xxxxxxxxx 2014-Darrick SEBAST[place] [id number] MANAGED MEDICAID [place], [place] documented as of this encounter"
--- OUTSIDE RECORDS SUMMARY | 2019-08-07 11:08 | XMS REPORT ---
:1965 [facility] Address [address] [place] [address] Dr. Bowling [address] [place] [id number] Care Team Providers Name Role Phone Unavailable Unavailable Unavailable Problems This patient has no known problems. Allergies, Adverse Reactions, Alerts This patient has no known allergies or adverse reactions. Medications This patient has no known medications.
[2019-08-07 11:43] LABS: Arterial Blood Carboxyhemoglob 1.6 % (0-1.5); Blood Gas Oxyhemoglobin 92.4 % (94-97); Blood O2 Saturation 94.7 % (92-98.5)
[2019-08-07] MEDS ORDERED: METOPROLOL TARTRATE 5 MG/5 ML INJ IV ONE (12:03)
[2019-08-07 12:05] LABS: Absolute Lymphocytes (CBC) 1.6 K/uL (0.7-4.9); Basophils % 1.2 % (0-1.3); Hematocrit 41.2 % (39.6-49.0); Lymphocytes % 18.8 % (15.3-44.8); RBC Red Blood Cell Count 4.38 M/uL (4.33-5.43)
[2019-08-07 12:11] LABS: Protime INR 0.98
[2019-08-07 12:29] LABS: ALT/SGPT 25 U/L (12-78); AST/SGOT 15 U/L (15-37); Albumin 3.6 g/dL (3.4-5.0); Alkaline Phosphatase 103 U/L (45-117); BUN Blood Urea Nitrogen 23 mg/dL (7-18); Bicarbonate 20 mmol/L (21-32); Bilirubin Direct 0.1 mg/dL (0-0.2); Bilirubin Total 0.3 mg/dL (0.2-1.0); Glucose Level 85 mg/dL (74-106); Magnesium 2.2 mg/dL (1.8-2.4); NT PRO-BNP 7137 pg/mL (<125); Potassium 4.3 mmol/L (3.5-5.1); Protein, Total 7.6 g/dL (6.4-8.2); Sodium Level 139 mmol/L (136-145); Troponin (Emerg Dept Use Only) < 0.02 ng/mL (0.0-0.045)
--- NOTE | 2019-08-07 13:15 | RAD REPORT ---
EXAM DESCRIPTION: Scott Single View08/07/2019 1:09 pm CLINICAL HISTORY: Hemoptysis COMPARISON: August 2018 FINDINGS: Mild left lower lobe opacities. The right lung appears clear of acute infiltrate The heart is normal size. Pacemaker leads in place IMPRESSION: Mild left lung opacities may indicate pneumonia
--- NOTE | 2019-08-07 13:33 | ER ---
Nurse's Notes [facility] Name: Roby Ortiz Age: 54 yrs Sex: Male : 1965 Arrival Date: 08/07/2019 Time: 11:03 Bed 17 Private MD: Diagnosis: Hemoptysis. Pneumonia left lung Presentation: 08/07 11:04 Presenting complaint: EMS states: Pt is coughing up blood since 0700, pt is on heart jl7 transplant list. Transition of care: patient was not received from another setting of care. Onset of symptoms was August 07, 2019 at 07:00. Risk Assessment: Do you want to hurt yourself or someone else? Patient reports no desire to harm self or others. Care prior to arrival: IV initiated. 18 GA, in the right forearm. 11:04 Method Of Arrival: EMS: [facility] 7 11:04 Acuity: ELAINE 2 jl7 11:05 Initial Sepsis Screen: Does the patient meet any 2 criteria? No. Patient's initial bp sepsis screen is negative. Does the patient have a suspected source of infection? Yes: Productive cough/pneumonia. Triage Assessment: 11:09 General: Appears in no apparent distress. uncomfortable, Behavior is calm, cooperative, jl7 appropriate for age. Pain: Complains of pain in anterior aspect of right upper chest. Historical: - Allergies: 11:09 PENICILLINS; jl7 - PMHx: 11:09 COPD; Hypertension; Myocardial infarction; CHF; heart transplant list; Pacemaker; jl7 - PSHx: 11:09 pacemaker; jl7 - Immunization history:: Adult Immunizations up to date. - Ebola Screening: : No symptoms or risks identified at this time. - Social history:: Smoking status: Patient uses tobacco products, unknown amount. Screenin:25 Abuse screen: Denies threats or abuse. Denies injuries from another. Nutritional bp screening: No deficits noted. Tuberculosis screening: No symptoms or risk factors identified. Fall Risk None identified. Assessment: 11:10 General: SEE TRIAGE NOTE. bp 12:05 Reassessment: ALL CURRENT ORDERS COMPLETED, NO FURTHER HEMOPTOSIS AT THIS TIME. bp 13:27 Reassessment: ALL CURRENT ORDERS COMPLETED, NO ANEMIA NOTED, DDIMER AND BNP ABNORMAL. bp MD NOTIFIED. 13:55 Reassessment: PT TO CT WITH EMPLOYEE DEVELOPMENT DIRECTOR. bp Vital Signs: 11:09 BP 165 / 125; Pulse 88; Resp 19 S; Temp 97.6; Pulse Ox 99% on R/A; jl7 12:00 BP 167 / 123; Pulse 77; Resp 13; Pulse Ox 97% ; bp 13:00 BP 158 / 118; Pulse 87; Resp 22; Pulse Ox 99% ; bp 14:00 BP 161 / 111; Pulse 84; Resp 16; Pulse Ox 98% ; bp ED Course: 11:03 Patient arrived in ED. jl7 11:05 Kai Acosta, RN is Primary Nurse. bp 11:08 Triage completed. jl7 11:09 Arm band placed on right wrist. jl7 11:09 Maintain EMS IV. Dressing intact. Good blood return noted. Site clean \T\ dry. Gauge \T\ bp site: 18 G R FA. 11:13 Hipolito Kim MD is Attending Physician. pkl 11:14 EKG done, by computer field technician. reviewed by Hipolito Kim MD. at1 11:25 Patient has correct armband on for positive identification. Bed in low position. Call bp light in reach. Side rails up X2. 13:12 XRAY Chest (1 view) In Process Unspecified. EDMS 13:32 Jarett Monte MD is Hospitalizing Provider. pkl 14:05 CT Chest For PE Angio In Process Unspecified. EDMS 14:32 Lab(s) recollected, by me, sent to lab. T\T\S collected, blood band applied to patient. dh3 15:12 Marie Vargas MD is Hospitalizing Provider. pkl 16:47 No provider procedures requiring assistance completed. Patient admitted, IV remains in bp place. Administered Medications: 11:50 Drug: Lopressor 5 mg Route: IVP; Site: right forearm; bp 12:27 Follow up: Response: No adverse reaction bp 13:55 Drug: NS 0.9% 1000 ml Route: IV; Rate: 100 ml/hr; Site: right forearm; bp 16:48 Follow up: IV Status: Infusion continued upon admission bp Outcome: 13:33 Decision to Hospitalize by Provider. pkl 15:13 Decision to Hospitalize by Provider. pkl 16:46 Admitted to Tele accompanied by tech, via wheelchair, room 204, with chart, Report bp called to MARIO CELESTE 16:46 Condition: stable 16:46 Instructed on the need for admit. 17:15 Patient left the ED. iw Signatures: Dispatcher [employer] EDHipolito Iqbal MD MD pkl Connie Armstrong, RN RN Gabrielle Flynn, small animal veterinarian EK Tat1 Frankie Aiken RN RN jl7 Leonora Riley 3 Kai Acosta RN RN bp
--- NOTE | 2019-08-07 13:34 | EDPHYS ---
Physician Documentation [facility] Name: Roby Ortiz Age: 54 yrs Sex: Male : 1965 Arrival Date: 08/07/2019 Time: 11:03 Bed 17 Private MD: ED Physician Hipolito Kim HPI: 08/07 11:29 This 54 yrs old Male presents to ER via EMS with complaints of Coughed up pkl blood. 11:29 The patient or guardian reports cough, described as moderate, with productive sputum, pkl that is bloody. Onset: The symptoms/episode began/occurred this morning. Associated signs and symptoms: Pertinent positives: chest pain, with cough. Historical: - Allergies: 11:09 PENICILLINS; jl7 - PMHx: 11:09 COPD; Hypertension; Myocardial infarction; CHF; heart transplant list; Pacemaker; jl7 - PSHx: 11:09 pacemaker; jl7 - Immunization history:: Adult Immunizations up to date. - Ebola Screening: : No symptoms or risks identified at this time. - Social history:: Smoking status: Patient uses tobacco products, unknown amount. ROS: 11:29 Eyes: Negative for injury, pain, redness, and discharge, ENT: Negative for injury, pkl pain, and discharge, Neck: Negative for injury, pain, and swelling. 11:29 Cardiovascular: Positive for chest pain, with cough, of the anterior aspect of right upper chest. 11:29 Respiratory: Positive for cough, bloody sputum. 11:29 Abdomen/GI: Negative for abdominal pain, nausea, vomiting, and diarrhea. 11:29 Back: Negative for acute changes. 11:29 : Negative for urinary symptoms. 11:29 MS/extremity: Negative for acute changes. 11:29 Skin: Negative for rash. 11:29 Neuro: Negative for altered mental status. Exam: 11:29 Head/Face: Normocephalic, atraumatic. Eyes: Pupils equal round and reactive to light, pkl extra-ocular motions intact. Lids and lashes normal. Conjunctiva and sclera are non-icteric and not injected. Cornea within normal limits. Periorbital areas with no swelling, redness, or edema. ENT: Nares patent. No nasal discharge, no septal abnormalities noted. Tympanic membranes are normal and external auditory canals are clear. Oropharynx with no redness, swelling, or masses, exudates, or evidence of obstruction, uvula midline. Mucous membranes moist. Neck: Trachea midline, no thyromegaly or masses palpated, and no cervical lymphadenopathy. Supple, full range of motion without nuchal rigidity, or vertebral point tenderness. No Meningismus. Chest/axilla: Normal chest wall appearance and motion. Nontender with no deformity. No lesions are appreciated. Cardiovascular: Regular rate and rhythm with a normal S1 and S2. No gallops, murmurs, or rubs. Normal PMI, no JVD. No pulse deficits. Respiratory: Lungs have equal breath sounds bilaterally, clear to auscultation and percussion. No rales, rhonchi or wheezes noted. No increased work of breathing, no retractions or nasal flaring. Abdomen/GI: Soft, non-tender, with normal bowel sounds. No distension or tympany. No guarding or rebound. No evidence of tenderness throughout. Back: No spinal tenderness. No costovertebral tenderness. Full range of motion. Skin: Warm, dry with normal turgor. Normal color with no rashes, no lesions, and no evidence of cellulitis. MS/ Extremity: Pulses equal, no cyanosis. Neurovascular intact. Full, normal range of motion. Neuro: Awake and alert, GCS 15, oriented to person, place, time, and situation. Cranial nerves II-XII grossly intact. Motor strength 5/5 in all extremities. Sensory grossly intact. Cerebellar exam normal. Normal gait. Vital Signs: 11:09 BP 165 / 125; Pulse 88; Resp 19 S; Temp 97.6; Pulse Ox 99% on R/A; jl7 12:00 BP 167 / 123; Pulse 77; Resp 13; Pulse Ox 97% ; bp 13:00 BP 158 / 118; Pulse 87; Resp 22; Pulse Ox 99% ; bp 14:00 BP 161 / 111; Pulse 84; Resp 16; Pulse Ox 98% ; bp MDM: 11:13 Patient medically screened. pkl 15:10 Data reviewed: vital signs, nurses notes, lab test result(s), EKG, radiologic studies, pkl CT scan, plain films. 08/07 11:28 Order name: Basic Metabolic Panel; Complete Time: 13:38 pk 08/07 11:28 Order name: CBC with Diff; Complete Time: 12:20 pkl 08/07 11:28 Order name: LFT's; Complete Time: 13:38 pkl 08/07 11:28 Order name: Magnesium; Complete Time: 13:38 pkl 08/07 11:28 Order name: NT PRO-BNP; Complete Time: 13:38 pkl 08/07 11:28 Order name: PT-INR; Complete Time: 12:20 pk 08/07 11:28 Order name: Troponin (emerg Dept Use Only); Complete Time: 13:38 pk 08/07 11:28 Order name: Flu; Complete Time: 13:38 pk 08/07 11:28 Order name: Blood Culture Adult (2) pk 08/07 11:28 Order name: Lactate; Complete Time: 13:38 pk 08/07 11:28 Order name: ABG; Complete Time: 12:20 pk 08/07 11:29 Order name: Type And Screen; Complete Time: 19:39 pk 08/07 12:21 Order name: D-Dimer; Complete Time: 13:38 pk 08/07 16:29 Order name: Blood Culture EDMS 08/07 11:28 Order name: XRAY Chest (1 view); Complete Time: 13:38 pk 08/07 11:28 Order name: EKG; Complete Time: 11:29 pk 08/07 11:28 Order name: Cardiac monitoring; Complete Time: 11:41 pk 08/07 11:28 Order name: EKG - Nurse/Tech; Complete Time: 11:41 pk 08/07 11:28 Order name: IV Saline Lock; Complete Time: 11:41 [facility] 08/07 11:28 Order name: Labs collected and sent; Complete Time: 12:00 pk 08/07 11:28 Order name: O2 Per Protocol; Complete Time: 11:41 pk 08/07 11:28 Order name: O2 Sat Monitoring; Complete Time: 11:41 pk 08/07 12:04 Order name: Labs - recollect needed; Complete Time: 12:28 bd 08/07 13:41 Order name: CT Chest For PE Angio; Complete Time: 15:02 pkl 08/07 14:37 Order name: Diet Regular; Complete Time: 14:38 dh3 08/07 17:14 Order name: Thyroid Stimulating Hormone; Complete Time: 19:39 EDMS Administered Medications: 11:50 Drug: Lopressor 5 mg Route: IVP; Site: right forearm; bp 12:27 Follow up: Response: No adverse reaction bp 13:55 Drug: NS 0.9% 1000 ml Route: IV; Rate: 100 ml/hr; Site: right forearm; bp 16:48 Follow up: IV Status: Infusion continued upon admission bp Disposition: 08/07/19 15:13 Hospitalization ordered by Marie Vargas for Inpatient Admission. Preliminary diagnosis is Hemoptysis. Pneumonia left lung. - Bed requested for Telemetry/MedSurg (Inpatient). - Status is Inpatient Admission. iw - Condition is Stable. - Problem is new. - Symptoms are unchanged. UTI on Admission? No Signatures: Dispatcher [employer] EDMS Jemma Coronado Pin, MD MD pkl Connie Armstrong RN RN iw Frankie Aiken RN RN jl7 Kai Acosta RN RN bp Corrections: (The following items were deleted from the chart) 13:33 13:33 Hospitalization Ordered by Jarett Monte MD for Inpatient Admission. Preliminary pkl diagnosis is Painful mass epigastric region. Bed requested for Telemetry/MedSurg (Inpatient). Status is Inpatient Admission. Condition is Stable. Problem is new. Symptoms are unchanged. UTI on Admission? No. pkl 13:35 13:30 Data reviewed: vital signs, nurses notes, lab test result(s), EKG, radiologic pkl studies, CT scan, plain films, pkl 13:35 13:30 ED course: Talked to Dr. Davis, admit to Hospitalist. pkl pkl 16:22 15:13 Hospitalization Ordered by Marie Vargas MD for Inpatient Admission. Preliminary bd diagnosis is Hemoptysis. Pneumonia left lung. Bed requested for Telemetry/MedSurg (Inpatient). Status is Inpatient Admission. Condition is Stable. Problem is new. Symptoms are unchanged. UTI on Admission? No. pkl 17:15 16:22 08/07/2019 15:13 Hospitalization Ordered by Marie Vargas MD for Inpatient Admission. iw Preliminary diagnosis is Hemoptysis. Pneumonia left lung. Bed requested for Telemetry/MedSurg (Inpatient). Status is Inpatient Admission. Condition is Stable. Problem is new. Symptoms are unchanged. UTI on Admission? No. bd
[2019-08-07] MEDS ORDERED: NA CHLORIDE 0.9% 1,000 ML ONE (13:54)
--- NOTE | 2019-08-07 14:21 | RAD REPORT ---
EXAM DESCRIPTION: CT - Chest For Pe Angio - 08/07/2019 2:05 pm CLINICAL HISTORY: Hemoptysis COMPARISON: None. TECHNIQUE: Dynamically enhanced axial 3 mm thick images of the chest were obtained during administra tion of <100> mL Isovue 370 IV contrast. Coronal and oblique reconstruction images were generated and reviewed. Exam utilizes a protocol for optimal evaluation of pulmonary arterial tree. Maximum intensity projections 3D imaging was utilized All CT scans are performed using dose optimization technique as appropriate and may include automated exposure control or mA/KV adjustment according to patient size. FINDINGS: A pulmonary embolus is not seen. A thoracic aortic aneurysm is not noted. Mild left hilar lymphadenopathy A small left pleural effusion A 3 centimeter opacity is present within the lingula. Mild additional patchy opacities are present wi thin the lingula. Small Y shaped opacities within the right middle lobe may be be a mucus plug. COPD. Calcified lung granulomas IMPRESSION: Negative for a pulmonary embolism. 3 centimeter lingular opacity may represent pneumonia or neoplasm. Mild patchy lingular opacities probably pneumonia/pneumonitis Mild left hilar lymphadenopathy If the 3 centimeter lingular opacity does not resolve bronchoscopy would be recommended
--- NOTE | 2019-08-07 14:55 | EKG ---
Test Date: 2019-08-07 Test Time: 11:13:02 Integration Manager: DESHAUN MEASUREMENT RESULTS: Intervals: Rate: 85 MI: 124 QRSD: 98 QT: 392 QTc: 466 Gilbert: P: 75 MI: 124 QRS: 25 T: 242 INTERPRETIVE STATEMENTS: Normal sinus rhythm Left atrial enlargement LVH with secondary repolarization changes Prolonged QT Abnormal ECG Compared to ECG 09/13/2018 13:26:59 Left ventricular hypertrophy now present Electronically Signed On 08-07-19 14:54:32 VOCAL ARTIST by Ketan Timmons
[2019-08-07] MEDS ORDERED: MAGNESIUM HYDROXIDE 8% 30 ML PO PRN (16:10)
[2019-08-07] MEDS ORDERED: ACETAMINOPHEN 500 MG TAB PO PRN ×2 (16:10→17:12)
[2019-08-07] MEDS ORDERED: ONDANSETRON 4 MG/2 ML VIAL IV PRN ×2 (16:10→17:12)
[2019-08-07] MEDS ORDERED: CEFTRIAXONE 1 GM/NS 50 ML 1 GM/50 ML BAG IV SCH (16:17)
[2019-08-07] MEDS ORDERED: NA CHLORIDE 0.9% 1,000 ML IV SCH (17:00)
[2019-08-07] MEDS ORDERED: ALPRAZOLAM 0.25 MG TABLET PO PRN (17:12)
[2019-08-07] MEDS: NA CHLORIDE 0.9% 1,000 ML IV SCH (17:25)
[2019-08-07 17:40] VITALS: BMI 19.5
[2019-08-07] MEDS ORDERED: AZITHROMYCIN IV 500 MG in NA CHLORIDE 0.9% 250 ML IVPB SCH (18:00)
[2019-08-07] MEDS ORDERED: HOME MED 1 EA UNK (Ipratropium/Albuterol Sulfate [Combivent Respimat 20-100 Mcg] 4 GM) IH PRN (18:56)
[2019-08-07] MEDS: IPRATROPIUM BROM 0.5MG/2.5ML NEB SCH (19:50)
[2019-08-07] MEDS: ALBUTEROL 2.5 MG/3 ML NEB SOL NEB SCH (19:50)
[2019-08-07] MEDS ORDERED: IPRATROPIUM BROM 0.5MG/2.5ML NEB SCH (20:00)
[2019-08-07] MEDS ORDERED: ALBUTEROL 2.5 MG/3 ML NEB SOL NEB SCH (20:00)
[2019-08-07] MEDS ORDERED: ATORVASTATIN 40 MG TAB PO SCH (21:00)
[2019-08-07] MEDS: carvediloL 12.5 MG TAB PO SCH (21:46)
[2019-08-07 22:12] LABS: Urine Appearance CLEAR; Urine Bilirubin NEGATIVE (NEG); Urine Blood NEGATIVE (NEG); Urine Color YELLOW; Urine Glucose NEGATIVE (NEG); Urine Protein NEGATIVE (NEG); Urine Urobilinogen 0.2 mg/dL (0.2-1.0)
[2019-08-07 22:16] LABS: Urine Microscopic Reflex NO UMIC
[2019-08-08] MEDS: IPRATROPIUM BROM 0.5MG/2.5ML NEB SCH ×3 (02:00→14:25)
[2019-08-08] MEDS: ALBUTEROL 2.5 MG/3 ML NEB SOL NEB SCH ×3 (02:00→14:25)
[2019-08-08] MEDS: NA CHLORIDE 0.9% 1,000 ML IV SCH ×2 (02:31→03:46)
--- NOTE | 2019-08-08 02:32 | HP ---
Date of Admission: 08/07/2019 Chief Complaint: Cough and hematemesis. History Of Present Illness: This patient is a 54-year-old gentleman, who presented for cough and hemoptysis. He has a history of hypertension and CHF. This patient has been coughing for the last 5 days. He did not produce much sputum. No fever or chills. No shortness of breath. He started to cough with bright red blood since this morning. This is visible bright red blood. He has been coughing significantly today. No nausea or vomiting. He then presented to in the emergency room. In the ED, WBC 8.4 and hemoglobin 13.9. Sodium 139, and potassium 4.3, creatinine 1.43. D-dimer was elevated, which is 1956. CTA was ordered due to elevated D-dimer. There is no evidence of PE. However, there is 3 cm lingular opacity that may be representing pneumonia versus neoplasm. The patient was admitted for further management. Past Medical History: 1. Hypertension. 2. Tobacco abuse. 3. Chest pain. Allergies: PENICILLIN. Medications: Home medications reviewed. Review of Systems: Cough and hemoptysis as mentioned above. No shortness of breath. No nasal congestion or sore throat. No lightheaded or syncope. No vision or hearing change. No palpitations. No nausea or vomiting. No fever or chills. No numbness or weakness. For the rest of the review, please see HPI. Social History: He used to smoke and he quit a few weeks ago. Family History: Noncontributory. Physical Examination: Vital Signs: His blood pressure 165/120, pulse 88, respiratory rate 19, temperature 97.6. HEENT: Unremarkable. PERRLA. EOMI. Neck: Supple. No JVD. Chest: Decreased breath sounds. No labored breathing. No crackles. Heart: Normal S1, S2. Regular rhythm and rate. No murmur. Abdomen: Soft, nontender. Bowel sounds present. Extremities: No edema. No cyanosis. Neuro: Patient awake, alert, and oriented x3. Nonfocal. Psych: No agitation, no anxiety. Mood stable. Skin: No rashes. Laboratory Data: CBC, unremarkable. Creatinine 1.4, sodium 139, potassium 4.3 , BUN 23, bicarb 20. Liver enzymes within normal range. Assessment And Plan: 1. Community-acquired pneumonia. The patient has been coughing. Chest x-ray demonstrated mild left lung opacity, suggests pneumonia. He has elevated D- dimer. Chest CTA was ordered, which did not demonstrate PE. Chest CTA demonstrated 3 cm lingular opacity. We started IV azithromycin and Rocephin empirically. We started DuoNeb nebulization. Pulmonology will be consulted. 2. Hemoptysis. Likely secondary to pneumonia. Hold aspirin. We will not give him Lovenox or heparin for DVT prophylaxis. His hemoglobin is stable. 3. Hypertension. Blood pressure is on higher side. We will give the hydralazine as needed. We will resume home BP medications. 4. Congestive heart failure. It appears to be compensated. No fluid retention. We will resume home CV medications including beta jeniffer. 5. ANGELINA Cr 1.4. Started IV fluid. 5. Status post pacemaker. QT/MODL Voice ID: [id number]
[2019-08-08 05:50] LABS: Basophils % 1.1 % (0-1.3); Hematocrit 37.6 % (39.6-49.0); Lymphocytes % 22.7 % (15.3-44.8); MPV 9.3 fL (7.6-11.3); RBC Red Blood Cell Count 4.05 M/uL (4.33-5.43)
[2019-08-08 06:05] LABS: Albumin 3.1 g/dL (3.4-5.0); Bilirubin Total 0.3 mg/dL (0.2-1.0); Magnesium 2.2 mg/dL (1.8-2.4); Potassium 4.3 mmol/L (3.5-5.1); Protein, Total 6.6 g/dL (6.4-8.2)
[2019-08-08 08:34] VITALS: O2SAT 92
--- NOTE | 2019-08-08 08:49 | P.CNS ---
Date of Consult: 08/08/19 Reason for Consult: Hemoptysis and lung mass Chief Complaint: Hemoptysis History of Present Illness: Patient is 54 years of age he was at [facility] for a long time had a pacemaker put an as discharge suddenly started having hemoptysis denies any fever chills coughing up some brown sputum has a history of COPD significant coronary artery disease quits smoking and drinking approximately 2 months ago feels fine now no new complaints Allergies No Known Allergies Allergy (Verified 09/13/18 17:03) Home Medications: Aspirin [Aspirin EC 81 MG] 81 mg PO DAILY 08/07/19 Atorvastatin Calcium 40 mg PO BEDTIME 08/07/19 Carvedilol [Coreg] 12.5 mg PO BID 08/07/19 Furosemide 20 mg PO DAILY 08/07/19 Ipratropium/Albuterol Sulfate [Combivent Respimat Inhal [place]] 4 gm IH Q4HP PRN 08/07/19 Isosorbide Mononitrate [Isosorbide Mononitrate ER] 30 mg PO DAILY 08/07/19 Potassium Chloride 40 meq PO DAILY 08/07/19 - Past Medical/Surgical History Diabetic: No -: Glaucoma -: HTN -: COPD -: History of CVA -: Tobacco abuse -: Alcohol abuse -: bilateral eye surgery tear ducts replaced -: left eye cataract extraction with lens replacement -: Pacemaker placement Psychosocial/ Personal History: Patient has a girlfriend. He has 6 children. 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 - Family History Mother Medical History: Heart disease, Cancer Notes: Lymphoma, Leukemia Father Medical History: Heart disease, Cancer Notes: Throat Cancer - Social History Smoking Status: Current every day smoker Alcohol use: No CD- Drugs: No Caffeine use: Yes Place of Residence: Home Review of Systems 10-point ROS is otherwise unremarkable Respiratory: Cough, Shortness of Breath, Hemoptysis Physical Examination Temp Pulse Resp BP Pulse Ox 98.4 F 86 20 154/93 H 94 08/08/19 04:00 08/08/19 04:00 08/08/19 04:00 08/08/19 04:00 08/08/19 04:00 General: Alert, Oriented x3 HEENT: Atraumatic Neck: Supple Respiratory: Clear to auscultation bilaterally Cardiovascular: No edema, Regular rate/rhythm, Normal S1 S2 Gastrointestinal: Normal bowel sounds, Soft and benign Laboratory Data (last 24 hrs) 08/07/19 11:50: PT 11.6, INR 0.98 08/07/19 11:50: WBC 8.4, Hgb 13.9, Hct 41.2, Plt Count 255 08/07/19 11:50: Sodium 139, Potassium 4.3, BUN 23 H, Creatinine 1.43 H, Glucose 85, Magnesium 2.2, Total Bilirubin 0.3, AST 15, ALT 25, Alkaline Phosphatase 103 - Problems (1) Hemoptysis Current Visit: Yes Status: Acute Plan: Patient is 54 years of age admitted with sudden onset of hemoptysis is a left lingular infiltrate possibly a pneumonia with just recently discharged from [facility] after prolonged hospitalization I doubt this is lung cancer with pacemaker placed his a history of COPD alcohol abuse patient has renal insufficiency vital signs are stable recommend discharge on levofloxacin adjusted for his renal function he needs a follow up chest x-ray in 2 weeks follow-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
[2019-08-08] MEDS ORDERED: AZITHROMYCIN IV 500 MG in NA CHLORIDE 0.9% 250 ML IVPB SCH (09:00)
[2019-08-08] MEDS ORDERED: ISOSORBIDE MONO SR 30 MG TAB PO SCH (09:00)
[2019-08-08] MEDS ORDERED: levoFLOXacin 500 MG TAB PO SCH (09:00)
[2019-08-08] MEDS ORDERED: CEFTRIAXONE/SWI 1gm 1 GM/10 ML SYR IVP SCH (09:00)
[2019-08-08] MEDS ORDERED: FUROSEMIDE 20 MG TABLET PO SCH (09:00)
[2019-08-08] MEDS: carvediloL 12.5 MG TAB PO SCH (09:03)
[2019-08-08 15:14] VITALS: BP 149/96; TEMP 98.2
--- NOTE | 2019-08-09 02:57 | DS ---
Date of Discharge: 08/08/2019 Hospital Course: This patient is a 54-year-old gentleman who presented for cough and hemoptysis. He has a history of hypertension and CHF s/p AICD. He has been coughing for 5 days and then hemoptysis for 1 day. He then presented to the emergency room. In the ED, WBC was normal. Hemoglobin 13.9. D-dimer was elevated. The chest CTA negative for PE. The patient was admitted for pneumonia. The patient was treated with IV azithromycin and Rocephin. He also received DuoNeb treatment. The hemoptysis is resolved after admission. He still has some mild cough. Carpenter Supervisor Wooden Ship was consulted. He recommended to discharge the patient and follow up as outpatient. His vitals are stable, he was then discharged to home. His renal function is mildly decreased. This is likely due to lasix. I instructed him to repeat BMP in one week at PCP 's office. Physical Examination: General: On discharge, patient is awake and alert, in no acute distress. Vital Signs: Temperature 98.2, pulse 88, respiratory rate 17, blood pressure 149/96, oxygen saturation 94 on room air. HEENT: Unremarkable. Chest: Clear to auscultation. No labored breathing. No wheezing. Heart: Normal S1, S2. Regular rhythm and rate. Abdomen: Soft, nontender. Bowel sounds present. Extremities: No edema, no cyanosis. Neuro: Patient awake and alert, oriented x3, nonfocal. Discharge Laboratory: WBC 8.7, hemoglobin 12.8, platelet 247. Sodium 144, potassium 4.3, creatinine 1.5. Discharge Diagnoses: 1. Community-acquired pneumonia. 2. Hemoptysis, resolved. 3. Hypertension. 4. Congestive heart failure. 5. Acute renal failure. 6. Status post automatic implantable cardioverter defibrillator. Discharge Instructions: 1. Please follow facility designer in 1 week. 2. Please hold aspirin until seen supervisor inspection room. 3. Need to repeat CBC and BMP to check his renal function. 4. Please go to emergency room if have hemoptysis, worsening cough, or shortness of breath. Discharge Diet: Healthy-heart diet. Discharge Activity: As tolerated. Discharge Medications: Levaquin 500 mg daily, otherwise see home medication list. I spent about 30 minutes to discharge the patient. QT/MODL Voice ID: [id number] Report ID: [id number] SHELLIE
== END 2019-08-08 15:34 | disposition home or self-care (01) ==
LOC: ER 11:02 → INTOOBSV 16:06 → ERHOLD 16:06 → 2ND 16:46
PROVIDERS: ADMIT Internal Medicine; ATTEND Internal Medicine
DX: J18.9 Pneumonia, unspecified organism (principal); R04.2 Hemoptysis; I11.0 Hypertensive heart disease with heart failure; I50.9 Heart failure, unspecified; N17.9 Acute kidney failure, unspecified; Z95.810 Presence of automatic (implantable) cardiac defibrillator; F17.210 Nicotine dependence, cigarettes, uncomplicated; Z88.0 Allergy status to penicillin
CPT/HCPCS: 96361; 93005; 87040 ×2; 87070; 85025 ×2; 80048; 36415 ×2; 86900; 83735 ×2; 86850; 87205 ×2; 84100; 85610; 86901; 85379; 80076; 83605; 85730; 84443; 81003; 84484; 80053; 83880; 87804 ×2; 71275; 71045; 94640 ×4; 82805; 94760 ×3; 96374; 99285; Q9967; J0456; J7030 ×4; G0378 ×3; J0696

== ENCOUNTER 2019-09-11 09:26 | Observation (INO) | payer MEDICAID ==
--- OUTSIDE RECORDS SUMMARY | 2019-09-11 09:41 | XMS REPORT ---
:1965 Author Organization [facility] Address [address] [place] [address] [address] [place] [address] Care Team Providers Name Role Phone Unavailable Unavailable Unavailable Problems This patient has no known problems. Allergies, Adverse Reactions, Alerts This patient has no known allergies or adverse reactions. Medications This patient has no known medications.
--- OUTSIDE RECORDS SUMMARY | 2019-09-11 09:42 | XMS REPORT | Summary of Care ---
:1965 Author Organization [facility] Address [address] [place] [id number] Care Team Providers Name Role Phone Marguerite Sevilla Service/Team Unavailable Jun Briceno Insurance H[employer] Jluis Sage MD Primary Care Provider Riaz Booker DO Film And Video Editor Reason for Referral (Routine) Status Reason Specialty Diagnoses / Referred By Referred To Procedures Contact Contact New Request Cardiology Procedures Taqueria Alcaraz MD CONSULT/REFERRAL [address] [place] [address] [place] [address] Reason for Visit Reason Comments Follow-up Hospital Follow up (Routine) Status Reason Specialty Diagnoses / Referred By Referred To Procedures Contact Contact New Request Cardiology Diagnoses Systolic heart failure, unspecified HF chronicity Jluis Sage, Procedures CONSULT/REFERRAL CARDIOLOGY [address] [place] [address] [address] Encounter Details Date Type Department Care Team Description 08/28/2019 Office Visit [facility] Taqueria Alcaraz MD Chronic systolic heart failure (Primary Dx); Cardiology- [address] Uncontrolled hypertension; [address] [place] [address] DRIVE ICD (implantable cardioverter-defibrillator) in place; Drive, [address] CKD (chronic kidney disease) stage 3, GFR 30-59 ml/[place] [phone] Allergies No Known Allergiesdocumented as of this encounter (statuses as of 08/28/2019) Medications Medication Sig Dispensed Refills Start Date End Date Status aspirin 81 mg Take 1 tablet 30 tablet 11 04/09/2019 Active chewable by mouth tabletIndications: daily. Acute on chronic combined systolic and diastolic congestive heart failure isosorbide Take 1 tablet 30 tablet 2 04/09/2019 Active mononitrate 30 mg by mouth 24 hr daily. tabletIndications: Acute on chronic combined systolic and diastolic congestive heart failure nitroglycerin 0.4 Place 1 1 Bottle 2 04/08/2019 Active mg sublingual tablet under tabletIndications: the tongue Acute on chronic every 5 combined systolic (five) and diastolic minutes as congestive heart needed for failure Chest pain. furosemide 40 mg Take 1 tablet 60 tablet 3 06/06/2019 Active tabletIndications: by mouth 2 Systolic heart (two) times failure, daily. unspecified HF chronicity, Essential hypertension, Cardiomyopathy, unspecified type albuterol-ipratrop Inhale 1 Puff 4 g 3 06/06/2019 Active ium (COMBIVENT 4 (four) RESPIMAT) 20-100 times daily. mcg/actuation inhalerIndications : Chronic obstructive pulmonary disease, unspecified COPD type tiotropium bromide Inhale 1 Puff 4 g 3 06/06/2019 Active 2.5 mcg/actuation 2 (two) times MistIndications: daily as Chronic needed obstructive (Bronchospasm pulmonary disease, ). unspecified COPD type Miscellaneous I10 - 1 Kit 0 06/06/2019 Active Medical Supply Dispense KitIndications: blood Systolic heart pressure cuff failure, (any brand), unspecified HF take BP at chronicity, home BID Essential hypertension, Cardiomyopathy, unspecified type atorvastatin 40 mg Take 1 tablet 30 tablet 2 07/06/2019 Active tabletIndications: by mouth at Acute on chronic bedtime. combined systolic and diastolic congestive heart failure potassium chloride Take 2 60 tablet 0 07/06/2019 Active 20 mEq tablets by tabletIndications: mouth daily. Systolic heart failure, unspecified HF chronicity, Cardiomyopathy, unspecified type carvediloL 25 mg Take 1 tablet 60 tablet 3 08/28/2019 Active tablet by mouth 2 (two) times daily with meals. hydrALAZINE 25 mg Take 1 tablet 90 tablet 3 08/28/2019 Active tablet by mouth 3 (three) times daily. carvedilol 12.5 mg Take 1 tablet 60 tablet 0 07/06/2019 Discontinued tabletIndications: by mouth 2 0 (Reorder) Acute on chronic (two) times combined systolic daily with and diastolic meals. congestive heart failure documented as of this encounter (statuses as of 08/28/2019) Active Problems Problem Noted Date Former smoker 07/12/2019 Encounter for screening for malignant neoplasm of lung 07/12/2019 Hypertensive emergency 07/04/2019 Acute on chronic combined systolic and diastolic congestive heart failure 04/2019 ICD (implantable cardioverter-defibrillator) in place 07/04/2019 Troponin I above reference range 07/04/2019 E46 Unspecified severe protein-calorie malnutrition 07/04/2019 CKD (chronic kidney disease) stage 3, GFR 30-59 ml/min 06/08/2019 Systolic heart failure, unspecified HF chronicity 06/06/2019 Mixed hyperlipidemia 06/06/2019 Dysthymia 06/06/2019 Need for hepatitis C screening test 06/06/2019 Chronic obstructive pulmonary disease, unspecified COPD type 06/06/2019 CHF exacerbation 05/19/2019 SOB (shortness of breath) 04/06/2019 Hypertensive urgency 10/21/2016 Alcohol use 10/21/2016 Cardiomyopathy 10/21/2016 Chest pain 10/21/2016 Chest pain, unspecified 10/20/2016 Essential hypertension 10/20/2016 Hypertension 10/20/2016 documented as of this encounter (statuses as of 08/28/2019) Immunizations Name Administration Dates Next Due Influenza Virus Vaccine Quad .5 mL IM 6+ MO 05/11/2019 documented as of this encounter Social History Tobacco Use Types Packs/Day Years Used Date Former Smoker Cigarettes 4 10/20/1976 - 05/19/2019 Smokeless Tobacco: Never Used Comments: 4-5 ppd for 42 years Alcohol Use Drinks/Week oz/Week Comments Not Currently 12 pack every day at least for 40 years; now drinks 6 pack per week. Pt denies ETOH use since 05/19/2019 Financial Resource Strain Answer Date Recorded How [...] Sign Reading Time Taken Comments Blood Pressure 176/117 08/28/2019 3:22 PM COKE CRUSHER OPERATOR Pulse 102 08/28/2019 3:22 PM COKE CRUSHER OPERATOR Temperature - - Respiratory Rate 19 08/28/2019 3:19 PM COKE CRUSHER OPERATOR Oxygen Saturation 97% 08/28/2019 3:19 PM COKE CRUSHER OPERATOR Inhaled Oxygen Concentration - - Weight 65.3 kg (144 lb) 08/28/2019 3:19 PM COKE CRUSHER OPERATOR Height 170.2 cm (5' 7") 08/28/2019 3:19 PM COKE CRUSHER OPERATOR Body Mass Index 22.55 08/28/2019 3:19 PM COKE CRUSHER OPERATOR documented in this encounter Patient Instructions Patient InstructionsCaTaqueria seaman MD - 08/28/2019 3:00 PM CSTIncrease carvedilol to 25 mg 2 times a day Add hydralazine 25 mg 3 times a day CRUSHER OPERATOR documented in this encounter Progress Notes Taqueria Alcaraz MD - 08/28/2019 3:00 PM CST [facility] Cardiology Consult Note CHIEF COMPLAINT: Chief Complaint Patient presents with Follow-up Hospital Follow up History of Present Illness: This is a 54 year-old male with PMH HTN, HFrEF, s/p ICD, CKD 3 etc. He was admitted to [facility] in 06/2019 for SOB and chest pain. Recent admission to [facility] for ICD implantation. Stated that his BP medications were adjusted. Since that time his BP has been elevated. In [facility] he was found to have pulmonary edema, elevated BP > 190, with mildly elevated troponin. We increased coreg during last admission. His BP is still elevated up to 180/ 110s. Mild headache. Sleeps on 2 pillows. ECHO 04/2019 - The overall left ventricular function appears severely reduced. LVEF=15-20%. - There is severe global hypokinesis of the left ventricle. - Grade II diastolic dysfunction with elevated LAP. - Mild LAE -RA pressure is 0-5 mmHg Previous Cardiac Studies: IMAGING - I personally reviewed, pertinent results as below: ECG 10/20/2016 normal sinus rhythm with narrow QRS complex with evidence of nonspecific ST-T changes noted along with mild LVH. SOCIAL HISTORY Social History Socioeconomic History Marital status: Spouse name: Not on file Number of children: Not on file Years of education: Not on file Highest education level: Not on file Occupational History Not on file Social Needs Financial resource strain: Not hard at all Food insecurity: Worry: Never true Inability: Never true Transportation needs: Medical: No Non-medical: No Tobacco Use Smoking status: Former Smoker Packs/day: 4.00 Types: Cigarettes Start date: 10/20/1976 Last attempt to quit: 05/19/2019 Years since quittin.2 Smokeless tobacco: Never Used Tobacco comment: 4-5 ppd for 42 years Substance and Sexual Activity Alcohol use: Not Currently Comment: 12 pack every day at least for 40 years; now drinks 6 pack per week. Pt denies ETOH use since 05/19/2019 Drug use: Not Currently Types: Marijuana Sexual activity: Not on file Lifestyle Physical activity: Days per week: Not on file Minutes per session: Not on file Stress: Not on file Relationships Social connections: Talks on phone: Not on file Gets together: Not on file Attends mosque service: Not on file Active member of club or organization: Not on file Attends meetings of clubs or organizations: Not on file Relationship status: Not on file Intimate partner violence: Fear of current or ex partner: Not on file Emotionally abused: Not on file Physically abused: Not on file Forced sexual activity: Not on file Other Topics Concern Not on file Social History Narrative Not on file ALLERGIES No Known Allergies MEDICATIONS Patient's Medications START taking these medications HYDRALAZINE 25 MG TABLET Take 1 tablet by mouth 3 (three) times daily. CONTINUE taking these medications which have NOT CHANGED ALBUTEROL-IPRATROPIUM (COMBIVENT RESPIMAT) 20-100 MCG/ACTUATION INHALER Inhale 1 Puff 4 (four) times daily. ASPIRIN 81 MG CHEWABLE TABLET Take 1 tablet by mouth daily. ATORVASTATIN 40 MG TABLET Take 1 tablet by mouth at bedtime. FUROSEMIDE 40 MG TABLET Take 1 tablet by mouth 2 (two) times daily. ISOSORBIDE MONONITRATE 30 MG 24 HR TABLET Take 1 tablet by mouth daily. [email or web address] MEDICAL SUPPLY KIT I10 - Dispense blood pressure cuff (any brand), take BP at homeBID NITROGLYCERIN 0.[address] 1 tablet under the tongue every 5 (five) minutes as needed for Chest pain. POTASSIUM CHLORIDE 20 MEQ TABLET Take 2 tablets by mouth daily. TIOTROPIUM BROMIDE 2.5 MCG/ACTUATION MIST Inhale 1 Puff 2 (two) times daily as needed (Bronchospasm). START taking Modified Medications as Prescribed Modified Medication Previous Medication CARVEDILOL 25 MG TABLET carvedilol 12.5 mg tablet Take 1 tablet by mouth 2 (two) times daily with meals. Take 1 tablet by mouth 2 (two) times daily with meals. STOP taking these medications No medications on file There are no exam notes on file for this visit. I have reviewed the nursing notes obtained by my nurse and concur as detailed above. REVIEW OF SYSTEMS: Comprehensive 10-system review was conducted and were negative except for what' s noted in the HPI. The following systems were reviewed: Constitutional, cardiovascular, respiratory, gastrointestinal, genitourinary, musculoskeletal, neurologic, psychiatric, endocrinological, and hematological. PHYSICAL EXAMINATION: Vitals: 08/28/19 1519 08/28/19 1522 BP: (!) 175/110 (!) 176/117 BP Location: Left arm Patient Position: Sitting BP CUFF SIZE: Adult Small Pulse: 100 102 Resp: 19 SpO2: 97% Weight: 144 lb (65.3 kg) Height: 5' 7" (1.702 m) General: no apparent distress HEENT: normocephalic atraumatic Neck: supple, no lymphadenopathy, no bruits, no JVD Lungs: clear to auscultation bilaterally. No wheezes or rhonchi. No increased work of breathing. Cardio: Regular rate and rhythm, S1&S2 normal, no murmurs, rubs or gallops Abdomen: soft; non-tender; non-distended; normoactive bowel sounds. : not examined Rectal: not examined Extremities: no clubbing, cyanosis, or edema. Skin: no rashes, no visible lesions. Neuro: no gross focal deficits LABS - Reviewed pertinent labs as below: CBC BMP PT/INR WBC (10*3/L) Date Value 07/06/2019 8.30 NA (mmol/L) Date Value 07/06/2019 138 No results found for: PT PLT (10*3/L) Date Value 07/06/2019 284 K (mmol/L) Date Value 07/06/2019 3.7 INR (no units) Date Value 07/04/2019 1.1 HGB (g/dL) Date Value 07/06/2019 12.8 BUN (mg/dL) Date Value 07/06/2019 24 (H) HCT (%) Date Value 07/06/2019 38.4 CREATININE (mg/dL) Date Value 07/06/2019 1.61 (H) LIPID PROFILE GLUCOSE (mg/dL) Date Value 07/06/2019 97 CHOL (mg/dL) Date Value 04/06/2019 187 TSH LDL CHOL (mg/dL) Date Value 04/06/2019 99 TSH (mIU/L) Date Value 05/19/2019 2.08 CARDIAC ENZYMES HDL (mg/dL) Date Value 04/06/2019 61 No results found for: CK TRIG (mg/dL) Date Value 04/06/2019 137 LFTs No results found for: CKMB AST(SGOT) (U/L) Date Value 07/06/2019 25 TROPONIN I (ng/mL) Date Value 07/05/2019 0.034 ALT(SGPT) (U/L) Date Value 04/06/2019 34 ALTv (U/L) Date Value 07/06/2019 32 No results found for: BNP None available for review ASSESSMENT/PLAN 1. Chronic systolic heart failure 2. Uncontrolled hypertension 3. ICD (implantable cardioverter-defibrillator) in place 4. CKD (chronic kidney disease) stage 3, GFR 30-59 ml/min Uncontrolled HTN--Will increase coreg to 25 mg BID. Will add hydralazine 25 mg TID. Daily BP log to review. Low salt diet. Chronic HFrEF--Current volume status is good. On lasix 40 mg BID. Continue coreg. Not on ACEI/ARB due to previous ANGELINA while taking lisinopril. Add hydralazine. On Imdur. Refer to HF team. Troponin elevation--type 2 VA due to the above. Normal LHC in 08/2018. S/p ICD RTC 3 months Taqueria Alcaraz MD, FACMADI Extension Course Counselor, Division of Cardiology [facility] documented in this encounter Plan of Treatment Date Type Specialty Care Team Description 09/07/2019 Office Visit Pulmonary Disease Zayda Ang, [address] [place] [address] [phone] 10/11/2019 Office Visit Family Medicine Jluis Sage MD [address] [place] [address] [address] [place] [address] [phone] 11/27/2019 Office Visit Cardiology Taqueria Alcaraz MD [address] [place] [address] [address] [place], [place] [id number] 11/28/2019 Appointment Cardiac Electrophysiology Outpt-Marilynn, Pacemaker/Icd Health Maintenance Due Date Last Done Comments PNEUMOCOCCAL 0-64 YEARS COMBINED 1970 SERIES (1 of 1 - PPSV23) EYE EXAM 1974 URINE MICROALBUMIN 1974 DTaP,Tdap,and Td Vaccines (1 - 1975 Tdap) FOOT EXAM 1982 COLONOSCOPY 2014 Zoster Recombinant Vaccine 2014 (SHINGRIX) (1 of 2) LUNG CANCER SCREEN: Recommended 2019 for age 55-80 with 30 + pack year history HgA1C 10/05/2019 04/06/2019, 10/20/2016 LDL-C 04/06/2020 04/06/2019, 10/20/2016 CREATININE (SERUM) 07/06/2020 07/06/2019, 07/05/2019, 07/04/2019, Additional history exists INFLUENZA VACCINE Completed 05/11/2019 HEPATITIS C (HCV) SCREEN Completed 06/06/2019 documented as of this encounter Results Not on filedocumented in this encounter Visit Diagnoses Diagnosis Chronic systolic heart failure - Primary Uncontrolled hypertension Unspecified essential hypertension ICD (implantable cardioverter-defibrillator) in place CKD (chronic kidney disease) stage 3, GFR 30-59 ml/min Chronic kidney disease, Stage III (moderate) documented in this encounter Insurance Payer Benefit Plan / Subscriber ID Effective Phone Address Type Group Dates ZACHARIAH SONI xxxxxxxxx 2014-Darrick [place] [id number] MANAGED MEDICAID [place], [place] (Work) documented as of this encounter
--- OUTSIDE RECORDS SUMMARY | 2019-09-11 09:42 | XMS REPORT | Summary of Care ---
:1965 Author Organization [facility] Address [address] [place] [id number] Care Team Providers Name Role Phone Marguerite Sevilla Service/Team Unavailable Jun Briceno Insurance [employer] Jlius Sage MD Primary Care Provider Riaz Booker DO Management Lead Reason for Referral (Routine) Status Reason Specialty Diagnoses / Referred By Referred To Procedures Contact Contact New Request Cardiology Procedures Taqueria Alcaraz MD CONSULT/REFERRAL [address] [place] [address] [place] [address] Reason for Visit Reason Comments Follow-up Hospital Follow up (Routine) Status Reason Specialty Diagnoses / Referred By Referred To Procedures Contact Contact New Request Cardiology Diagnoses Systolic heart failure, unspecified HF chronicity Jluis Sage, Procedures CONSULT/REFERRAL CARDIOLOGY [address] [place] [address] [address] Encounter Details Date Type Department Care Team Description 08/28/2019 Office Visit [facility] Taqueria Alcaraz MD Chronic systolic heart failure (Primary Dx); Cardiology- [address] Uncontrolled hypertension; [address] [place] [address] DRIVE ICD (implantable cardioverter-defibrillator) in place; Drive, [address] CKD (chronic kidney disease) stage 3, GFR 30-59 ml/[place] [phone] Allergies No Known Allergiesdocumented as of this [...] Comments Blood Pressure 176/117 08/28/2019 3:22 PM HOSPICE DIRECTOR Pulse 102 08/28/2019 3:22 PM HOSPICE DIRECTOR Temperature - - Respiratory Rate 19 08/28/2019 3:19 PM HOSPICE DIRECTOR Oxygen Saturation 97% 08/28/2019 3:19 PM HOSPICE DIRECTOR Inhaled Oxygen Concentration - - Weight 65.3 kg (144 lb) 08/28/2019 3:19 PM HOSPICE DIRECTOR Height 170.2 cm (5' 7") 08/28/2019 3:19 PM HOSPICE DIRECTOR Body Mass Index 22.55 08/28/2019 3:19 PM HOSPICE DIRECTOR documented in this encounter Patient Instructions Patient InstructionsCaTaqueria seaman MD - 08/28/2019 3:00 PM CSTIncrease carvedilol to 25 mg 2 times a day Add hydralazine 25 mg 3 times a day ICE DIRECTOR documented in this encounter Progress Notes Taqueria Alcaraz MD - 08/28/2019 3:00 PM CST [facility] Cardiology Consult Note CHIEF COMPLAINT: Chief Complaint Patient presents with Follow-up Hospital Follow up History of Present Illness: This is a 54 year-old male with PMH HTN, HFrEF, s/p ICD, CKD 3 etc. He was admitted to [facility] in 06/2019 for SOB and chest pain. Recent admission to [place] for ICD implantation. Stated that his BP medications were adjusted. Since that time his BP has been elevated. In [facility] he was found to have pulmonary edema, [...] file Gets together: Not on file Attends hoahaoism service: Not on file Active member of [...] TABLET Take 1 tablet by mouth daily. [employer] I10 - Dispense blood [...] Refer to HF team. Troponin elevation--type 2 DC due to the above. Normal LHC in 08/2018. S/p ICD RTC 3 months Taqueria Alcaraz MD, FACMADI Crt, Division of Cardiology [facility] documented in this encounter Plan of Treatment Date Type Specialty Care Team Description 09/07/2019 Office Visit Pulmonary Disease Zayda Ang, [address] [place] [address] [phone] 10/11/2019 Office Visit Family Medicine Jluis Sage MD [address] [place] [address] [address] [place] [address] [phone] 11/27/2019 Office Visit Cardiology Taqueria Alcaraz MD [address] [place] [address] [address] [place], [place] [id number] 11/28/2019 Appointment Cardiac Electrophysiology Outpt-Marilynn, Pacemaker/[facility] [...] 2014-Darrick [place] [id number] MANAGED MED[place], [place] (Work) documented as of this encounter
[2019-09-11] MEDS ORDERED: propofoL 200 MG/20 ML VIAL IV ONE (10:25)
[2019-09-11] MEDS ORDERED: LIDOCAINE 1% MPF 5 ML VIAL ONE (10:25)
[2019-09-11] MEDS ORDERED: MIDAZOLAM HCL 2 MG/2 ML INJ ONE (10:25)
[2019-09-11] MEDS ORDERED: FENTANYL CITR 100 MCG/2 ML ONE (10:25)
[2019-09-11 10:35] LABS: Absolute Lymphocytes (CBC) 1.2 K/uL (0.7-4.9); Basophils % 0.9 % (0-1.3); Hematocrit 45.1 % (39.6-49.0); Lymphocytes % 9.7 % (15.3-44.8); MPV 8.4 fL (7.6-11.3); RBC Red Blood Cell Count 4.91 M/uL (4.33-5.43)
[2019-09-11 10:41] LABS: Protime INR 1.01
--- NOTE | 2019-09-11 10:41 | RAD REPORT ---
EXAM DESCRIPTION: RAD - Chest Single View - 09/11/2019 10:33 am CLINICAL HISTORY: COUGH Chest pain. COMPARISON: Chest Single View dated 08/07/2019; Chest Pa And Lat (2 Views) dated 09/14/2018; Chest Sin gle View dated 09/13/2018; Chest Single View dated 05/19/2018; Chest For Pe Angio dated 08/07/2019 FINDINGS: Portable technique limits examination quality. Mild worsening of bibasilar lung aeration is seen since comparative study, more notably on the left. The heart is mildly enlarged in size with a single lead pacer/ defibrillator device present. No displ aced fractures. IMPRESSION: Mild worsening of lung opacities noted, greater in the left the inferior lung lynn.
[2019-09-11 10:55] LABS: Albumin 3.7 g/dL (3.4-5.0); Bilirubin Direct 0.1 mg/dL (0-0.2); Bilirubin Total 0.4 mg/dL (0.2-1.0); Magnesium 2.3 mg/dL (1.8-2.4); Potassium 4.3 mmol/L (3.5-5.1); Protein, Total 7.9 g/dL (6.4-8.2); Troponin (Emerg Dept Use Only) 0.02 ng/mL (0.0-0.045)
--- NOTE | 2019-09-11 11:08 | ER ---
Nurse's Notes [facility] Name: Roby Ortiz Age: 54 yrs Sex: Male : 1965 Arrival Date: 09/11/2019 Time: 09:28 Bed 19 Private MD: Diagnosis: Pneumonia due to other specified bacteria;Essential (primary) hypertension;Unspecified combined systolic (congestive) and diastolic (congestive) heart failure;Chest pain, unspecified;Chronic obstructive pulmonary disease, unspecified Presentation: 09/11 09:39 Presenting complaint: Patient states: Out of BP medication x 5 days. Appt with PCP on September 14. Transition of care: patient was not received from another setting of care. Onset of symptoms is unknown. Risk Assessment: Do you want to hurt yourself or someone else? Patient reports no desire to harm self or others. Initial Sepsis Screen: Does the patient meet any 2 criteria? HR > 90 bpm. Does the patient have a suspected source of infection? No. Patient's initial sepsis screen is negative. Care prior to arrival: None. 09:39 Method Of Arrival: Ambulatory 09:39 Acuity: ELAINE 3 ca1 Historical: - Allergies: 09:40 PENICILLINS; ss - PMHx: 09:40 CHF; COPD; heart transplant list; Hypertension; Myocardial infarction; ss - PSHx: 09:40 pacemaker; ss - Immunization history:: Adult Immunizations up to date. - Coronavirus screen:: The patient has NOT traveled to [place] in the past 14 days. Proceed with normal triage process as indicated. - Social history:: Smoking status: Patient denies any tobacco usage or history of. - Family history:: not pertinent. - Ebola Screening: : Patient denies exposure to infectious person Patient denies travel to an Ebola-affected area in the 21 days before illness onset. Screenin:03 Abuse screen: Denies threats or abuse. Denies injuries from another. Nutritional ca1 screening: No deficits noted. Tuberculosis screening: No symptoms or risk factors identified. Fall Risk IV access (20 points). Assessment: 10:03 General: Appears in no apparent distress. comfortable, Behavior is calm, cooperative, ca1 appropriate for age. Pain: Complains of pain in anterior aspect of left upper chest Pain does not radiate. Pain currently is 7 out of 10 on a pain scale. Quality of pain is described as stabbing, Pain began 0300 today. took 2 Nitro, pt states, "I took [address] here" Is intermittent, Also complains of nausea, shortness of breath. Neuro: Level of Consciousness is awake, alert, obeys commands, Oriented to person, place, time, situation. Cardiovascular: Heart tones S1 S2 Capillary refill < 3 seconds Patient's skin is warm and dry. Rhythm is Respiratory: Reports shortness of breath at rest since 299 today Airway is patent Respiratory effort is even, unlabored, Respiratory pattern is regular, symmetrical, Breath sounds are clear bilaterally. GI: Abdomen is flat, non-distended, Bowel sounds present X 4 quads. Abd is soft and non tender X 4 quads. Reports nausea. : No deficits noted. No signs and/or symptoms were reported regarding the genitourinary system. EENT: No deficits noted. No signs and/or symptoms were reported regarding the EENT system. Derm: Skin is intact, is healthy with good turgor, Skin is pink, warm \\T\\ dry. Musculoskeletal: Circulation, motion, and sensation intact. Capillary refill < 3 seconds. 10:59 Reassessment: Patient appears in no apparent distress at this time. Patient and/or ca1 family updated on plan of care and expected duration. Pain level reassessed. Patient is alert, oriented x 3, equal unlabored respirations, skin warm/dry/pink. 11:58 Reassessment: Patient appears in no apparent distress at this time. Patient and/or ca1 family updated on plan of care and expected duration. Pain level reassessed. Patient is alert, oriented x 3, equal unlabored respirations, skin warm/dry/pink. Patient states symptoms have improved. 12:47 Reassessment: Patient appears in no apparent distress at this time. Patient is alert, ca1 oriented x 3, equal unlabored respirations, skin warm/dry/pink. 13:20 Reassessment: Patient appears in no apparent distress at this time. Patient and/or ca1 family updated on plan of care and expected duration. Pain level reassessed. Patient is alert, oriented x 3, equal unlabored respirations, skin warm/dry/pink. Patient states feeling better. 14:30 Reassessment: Patient appears in no apparent distress at this time. Patient and/or ca1 family updated on plan of care and expected duration. Pain level reassessed. Patient is alert, oriented x 3, equal unlabored respirations, skin warm/dry/pink. Pending Room Assignment. Vital Signs: 09:40 BP 179 / 115; Pulse 106; Resp 19; Temp 97.5(O); Pulse Ox 99% on R/A; Weight 60.33 kg; ss Height 5 ft. 7 in. (170.18 cm); 10:03 BP 185 / 129; Pulse 99; Resp 21 S; Pulse Ox 94% on R/A; ca1 10:35 BP 176 / 122; Pulse 106; Resp 20 S; Pulse Ox 94% on R/A; ca1 11:04 BP 186 / 122; Pulse 106; Resp 20 S; Pulse Ox 96% on R/A; ca1 11:46 BP 176 / 118; Pulse 103; Resp 20 S; Pulse Ox 96% on R/A; ca1 12:30 BP 157 / 107; Pulse 109; Resp 19 S; Pulse Ox 96% on R/A; ca1 13:20 BP 152 / 122; Pulse 108; Resp 20 S; Pulse Ox 96% on R/A; ca1 13:59 BP 149 / 112; Pulse 102; Resp 20 S; Pulse Ox 94% on R/A; ca1 14:30 BP 157 / 106; Pulse 112; Resp 20 S; Pulse Ox 94% on R/A; ca1 09:40 Body Mass Index 20.83 (60.33 kg, 170.18 cm) ED Course: 09:28 Patient arrived in ED. ag5 09:39 Triage completed. ss 09:40 Arm band placed on left wrist. 09:51 Dyan Dodson, ROULA is Primary Nurse. ca1 09:57 Jovi Davis MD is Attending Physician. chantal 10:03 Patient has correct armband on for positive identification. Placed in gown. Bed in low ca1 position. Call light in reach. Side rails up X 1. desk monitor on. Pulse ox on. NIBP on. Warm blanket given. 10:03 No provider procedures requiring assistance completed. Initial lab(s) drawn, by me, ca1 sent to lab. Inserted saline lock: 20 gauge in right forearm, using aseptic technique. Blood collected. 10:35 Lab(s) recollected, by me, sent to lab. ca1 11:06 Ryan Colon DO is Hospitalizing Provider. chatnal 11:06 Initial lab(s) drawn, by me, sent to lab. Inserted saline lock: 20 gauge in left ca1 antecubital area, using aseptic technique. Blood collected. 11:06 First set of blood cultures drawn by me. ca1 11:16 Second set of blood cultures drawn by me. ca1 14:47 Patient admitted, IV remains in place. ca1 Administered Medications: 11:30 Drug: Zofran 4 mg Route: IVP; Site: right antecubital; ca1 13:18 Follow up: Response: No adverse reaction ca1 11:32 Drug: morphine 2 mg {Note: RASS - 0.} Route: IVP; Site: right antecubital; ca1 13:19 Follow up: Response: No adverse reaction; Pain is decreased; RASS: Alert and Calm (0) ca1 11:34 Drug: Lasix 20 mg Route: IVP; Site: right antecubital; ca1 13:20 Follow up: Urine output 2000 ml; Response: No adverse reaction ca1 11:35 Drug: Nitro-Bid Ointment 2 % 1 inches Route: Transdermal; Site: anterior chest wall; ca1 13:19 Follow up: Response: No adverse reaction; Pain is decreased ca1 11:40 Drug: Rocephin 1 grams Route: IV; Rate: per protocol; Site: right antecubital; ca1 12:00 Follow up: Response: No adverse reaction; IV Status: Completed infusion ca1 12:00 Drug: Zithromax 500 mg Route: IVPB; Infused Over: 1 hrs; Site: left antecubital; ca1 13:19 Follow up: Response: No adverse reaction; IV Status: Completed infusion ca1 12:00 Drug: Mucomyst - Acetylcysteine 600 mg Route: PO; ca1 13:18 Follow up: Response: No adverse reaction ca1 Output: 13:20 Urine: 2000ml; Total: 2000ml. ca1 14:09 Urine: 2550ml (Voided); Total: 4550ml. ca1 Outcome: 11:08 Decision to Hospitalize by Provider. chantal 14:47 Admitted to Tele accompanied by tech, via wheelchair, room 404, with chart, Report ca1 called to Trisha Baker RN 14:47 Condition: stable 14:47 Instructed on the need for admit. 14:54 Patient left the ED. ca1 Signatures: Jovi Davis MD MD cha Smirch, Shelby, RN RN ss Dyan Dodson RN RN ca1 Darien Sharma ag5 Corrections: (The following items were deleted from the chart) 10: 09:39 Acuity: ELAINE 4 ss ca1 11:26 11:16 First set of blood cultures drawn by me, Second set of blood cultures drawn by ca1 me, ca1 12:49 11:30 BP 157 / 107; Pulse 109bpm; Resp 19bpm; Spontaneous; Pulse Ox 96% RA; ca1 ca1
--- NOTE | 2019-09-11 11:09 | EDPHYS ---
Physician Documentation [facility] Name: Roby Ortiz Age: 54 yrs Sex: Male : 1965 Arrival Date: 09/11/2019 Time: 09:28 Bed 19 Private MD: RUPINDER Physician Jovi Davis HPI: 09/11 11:04 This 54 yrs old Male presents to ER via Ambulatory with complaints of High chantal Blood Pressure. 11:04 The patient has elevated blood pressure and discovered this at home. Onset: The chantal symptoms/episode began/occurred 3 day(s) ago. Modifying factors: The symptoms are aggravated by. Associated signs and symptoms: The patient has no apparent associated signs or symptoms. Severity of symptoms: At its worst the blood pressure was moderate. The patient has not experienced similar symptoms in the past. Historical: - Allergies: :40 PENICILLINS; ss - PMHx: 09:40 CHF; COPD; heart transplant list; Hypertension; Myocardial infarction; ss - PSHx: 09:40 pacemaker; ss - Immunization history:: Adult Immunizations up to date. - Coronavirus screen:: The patient has NOT traveled to [place] in the past 14 days. Proceed with normal triage process as indicated. - Social history:: Smoking status: Patient denies any tobacco usage or history of. - Family history:: not pertinent. - Ebola Screening: : Patient denies exposure to infectious person Patient denies travel to an Ebola-affected area in the 21 days before illness onset. ROS: 11:04 Constitutional: Negative for fever, chills, and weight loss, Eyes: Negative for injury, chantal pain, redness, and discharge, ENT: Negative for injury, pain, and discharge, Neck: Negative for injury, pain, and swelling, Respiratory: Negative for shortness of breath, cough, wheezing, and pleuritic chest pain, Abdomen/GI: Negative for abdominal pain, nausea, vomiting, diarrhea, and constipation, Back: Negative for injury and pain, : Negative for injury, bleeding, discharge, and swelling, MS/Extremity: Negative for injury and deformity, Skin: Negative for injury, rash, and discoloration, Neuro: Negative for headache, weakness, numbness, tingling, and seizure, Psych: Negative for depression, anxiety, suicide ideation, homicidal ideation, and hallucinations, Allergy/Immunology: Negative for hives, rash, and allergies, Endocrine: Negative for neck swelling, polydipsia, polyuria, polyphagia, and marked weight changes, Hematologic/Lymphatic: Negative for swollen nodes, abnormal bleeding, and unusual bruising. 11:04 Cardiovascular: Positive for chest pain. Exam: 11:04 Constitutional: This is a well developed, well nourished patient who is awake, alert, chantal and in no acute distress. Head/Face: Normocephalic, atraumatic. Eyes: Pupils equal round and reactive to light, extra-ocular motions intact. Lids and lashes normal. Conjunctiva and sclera are non-icteric and not injected. Cornea within normal limits. Periorbital areas with no swelling, redness, or edema. ENT: Nares patent. No nasal discharge, no septal abnormalities noted. Tympanic membranes are normal and external auditory canals are clear. Oropharynx with no redness, swelling, or masses, exudates, or evidence of obstruction, uvula midline. Mucous membranes moist. Neck: Trachea midline, no thyromegaly or masses palpated, and no cervical lymphadenopathy. Supple, full range of motion without nuchal rigidity, or vertebral point tenderness. No Meningismus. Chest/axilla: Normal chest wall appearance and motion. Nontender with no deformity. No lesions are appreciated. Cardiovascular: Regular rate and rhythm with a normal S1 and S2. No gallops, murmurs, or rubs. Normal PMI, no JVD. No pulse deficits. Respiratory: Lungs have equal breath sounds bilaterally, clear to auscultation and percussion. No rales, rhonchi or wheezes noted. No increased work of breathing, no retractions or nasal flaring. Abdomen/GI: Soft, non-tender, with normal bowel sounds. No distension or tympany. No guarding or rebound. No evidence of tenderness throughout. Back: No spinal tenderness. No costovertebral tenderness. Full range of motion. Male : Normal genitalia with no discharge or lesions. Skin: Warm, dry with normal turgor. Normal color with no rashes, no lesions, and no evidence of cellulitis. MS/ Extremity: Pulses equal, no cyanosis. Neurovascular intact. Full, normal range of motion. Neuro: Awake and alert, GCS 15, oriented to person, place, time, and situation. Cranial nerves II-XII grossly intact. Motor strength 5/5 in all extremities. Sensory grossly intact. Cerebellar exam normal. Normal gait. Psych: Awake, alert, with orientation to person, place and time. Behavior, mood, and affect are within normal limits. Vital Signs: 09:40 BP 179 / 115; Pulse 106; Resp 19; Temp 97.5(O); Pulse Ox 99% on R/A; Weight 60.33 kg; ss Height 5 ft. 7 in. (170.18 cm); 10:03 BP 185 / 129; Pulse 99; Resp 21 S; Pulse Ox 94% on R/A; ca1 10:35 BP 176 / 122; Pulse 106; Resp 20 S; Pulse Ox 94% on R/A; ca1 11:04 BP 186 / 122; Pulse 106; Resp 20 S; Pulse Ox 96% on R/A; ca1 11:46 BP 176 / 118; Pulse 103; Resp 20 S; Pulse Ox 96% on R/A; ca1 12:30 BP 157 / 107; Pulse 109; Resp 19 S; Pulse Ox 96% on R/A; ca1 13:20 BP 152 / 122; Pulse 108; Resp 20 S; Pulse Ox 96% on R/A; ca1 13:59 BP 149 / 112; Pulse 102; Resp 20 S; Pulse Ox 94% on R/A; ca1 14:30 BP 157 / 106; Pulse 112; Resp 20 S; Pulse Ox 94% on R/A; ca1 09:40 Body Mass Index 20.83 (60.33 kg, 170.18 cm) ss MDM: 09:58 Patient medically screened. [facility] 11:04 Data reviewed: vital signs, nurses notes, lab test result(s), EKG, radiologic studies, [facility] CT scan, plain films. 09/11 09:59 Order name: Basic Metabolic Panel [facility] 09/11 09:59 Order name: CBC with Diff [facility] 09/11 09:59 Order name: LFT's [facility] 09/11 09:59 Order name: Magnesium [facility] 09/11 09:59 Order name: NT PRO-BNP [facility] 09/11 09:59 Order name: PT-INR [facility] 09/11 09:59 Order name: Troponin (emerg Dept Use Only) [facility] 09/11 10:39 Order name: CBC with Automated Diff; Complete Time: 10:59 EDMS 09/11 10:44 Order name: Protime (+INR); Complete Time: 10:59 EDMS 09/11 10:56 Order name: Basic Metabolic Panel; Complete Time: 10:59 [facility] 09/11 10:56 Order name: Liver (Hepatic) Function; Complete Time: 10:59 [facility] 09/11 10:56 Order name: Troponin (Emerg Dept Use Only); Complete Time: 10:59 [facility] 09/11 10:56 Order name: NT PRO-BNP; Complete Time: 10:59 [facility] 09/11 10:56 Order name: Magnesium; Complete Time: 10:59 [facility] 09/11 09:59 Order name: XRAY Chest (1 view) [facility] 09/11 11:04 Order name: CT Chest For PE Angio [facility] 09/11 11:04 Order name: Procalcitonin; Complete Time: 13:14 [facility] 09/11 11:04 Order name: Lactate [facility] 09/11 11:04 Order name: Blood Culture Adult (2) [facility] 09/11 11:39 Order name: RAD; Complete Time: 13:14 [facility] 09/11 12:01 Order name: Lactate [facility] 09/11 12:14 Order name: CT; Complete Time: 13:14 [facility] 09/11 12:50 Order name: Urine Dipstick--Ancillary (enter results) 09/11 13:05 Order name: Urine Dipstick-Ancillary; Complete Time: 13:14 [facility] 09/11 09:59 Order name: EKG; Complete Time: 10:01 [facility] 09/11 09:59 Order name: Cardiac monitoring; Complete Time: 10:02 [facility] 09/11 09:59 Order name: EKG - Nurse/Tech; Complete Time: 10:12 [facility] 09/11 09:59 Order name: IV Saline Lock; Complete Time: 10:11 [facility] 09/11 09:59 Order name: Labs collected and sent; Complete Time: 10:11 [facility] 09/11 09:59 Order name: O2 Per Protocol; Complete Time: 10:02 [facility] 09/11 09:59 Order name: O2 Sat Monitoring; Complete Time: 10:02 [facility] 09/11 09:59 Order name: Urine Dipstick-Ancillary (obtain specimen); Complete Time: 12:41 [facility] 09/11 10:19 Order name: Labs - recollect needed: recollect everything; Complete Time: 10:31 09/11 13:18 Order name: Diet Heart Healthy; Complete Time: 13:18 ca1 Administered Medications: 11:30 Drug: Zofran 4 mg Route: IVP; Site: right antecubital; ca1 13:18 Follow up: Response: No adverse reaction ca1 11:32 Drug: morphine 2 mg {Note: RASS - 0.} Route: IVP; Site: right antecubital; ca1 13:19 Follow up: Response: No adverse reaction; Pain is decreased; RASS: Alert and Calm (0) ca1 11:34 Drug: Lasix 20 mg Route: IVP; Site: right antecubital; ca1 13:20 Follow up: Urine output 2000 ml; Response: No adverse reaction ca1 11:35 Drug: Nitro-Bid Ointment 2 % 1 inches Route: Transdermal; Site: anterior chest wall; ca1 13:19 Follow up: Response: No adverse reaction; Pain is decreased ca1 11:40 Drug: Rocephin 1 grams Route: IV; Rate: per protocol; Site: right antecubital; ca1 12:00 Follow up: Response: No adverse reaction; IV Status: Completed infusion ca1 12:00 Drug: Zithromax 500 mg Route: IVPB; Infused Over: 1 hrs; Site: left antecubital; ca1 13:19 Follow up: Response: No adverse reaction; IV Status: Completed infusion ca1 12:00 Drug: Mucomyst - Acetylcysteine 600 mg Route: PO; ca1 13:18 Follow up: Response: No adverse reaction ca1 Disposition: 09/11/19 11:08 Hospitalization ordered by Ryan Colon for Inpatient Admission. Preliminary diagnosis are Pneumonia due to other specified bacteria, Essential (primary) hypertension, Unspecified combined systolic (congestive) and diastolic (congestive) heart failure, Chest pain, unspecified, Chronic obstructive pulmonary disease, unspecified. - Bed requested for Telemetry/MedSurg (Inpatient). - Status is Inpatient Admission. ca1 - Condition is Fair. - Problem is new. - Symptoms have improved. Signatures: Dispatcher [employer] EDJemma Guerrero Corey, MD MD cha Smirch, Shelby, RN RN ss Dyan Dodson RN RN ca1 Corrections: (The following items were deleted from the chart) 11:40 11:08 Hospitalization Ordered by Ryan Colon DO for Inpatient Admission. Preliminary [facility] diagnosis is Pneumonia due to other specified bacteria; Essential (primary) hypertension; Unspecified combined systolic (congestive) and diastolic (congestive) heart failure; Chest pain, unspecified. Bed requested for Telemetry/MedSurg (Inpatient). Status is Inpatient Admission. Condition is Fair. Problem is new. Symptoms have improved. chantal 14:31 11:40 09/11/2019 11:08 Hospitalization Ordered by Ryan Colon DO for Inpatient bd Admission. Preliminary diagnosis is Pneumonia due to other specified bacteria; Essential (primary) hypertension; Unspecified combined systolic (congestive) and diastolic (congestive) heart failure; Chest pain, unspecified; Chronic obstructive pulmonary disease, unspecified. Bed requested for Telemetry/MedSurg (Inpatient). Status is Inpatient Admission. Condition is Fair. Problem is new. Symptoms have improved. chantal 14:54 14:31 09/11/2019 11:08 Hospitalization Ordered by Ryan Colon DO for Inpatient ca1 Admission. Preliminary diagnosis is Pneumonia due to other specified bacteria; Essential (primary) hypertension; Unspecified combined systolic (congestive) and diastolic (congestive) heart failure; Chest pain, unspecified; Chronic obstructive pulmonary disease, unspecified. Bed requested for Telemetry/MedSurg (Inpatient). Status is Inpatient Admission. Condition is Fair. Problem is new. Symptoms have improved. bd
[2019-09-11] MEDS ORDERED: FUROSEMIDE 20 MG/ 2ML VIAL ONE (11:43)
[2019-09-11] MEDS ORDERED: NITROGLYCERIN 1 GM PKT TD ONE (11:43)
--- NOTE | 2019-09-11 11:43 | RAD REPORT ---
EXAM DESCRIPTION: CT - Chest For Pe Angio - 09/11/2019 11:30 am CLINICAL HISTORY: Chest pain. CHEST PAIN COMPARISON: Chest For Pe Angio dated 08/07/2019 TECHNIQUE: CT angiogram of the pulmonary arteries was performed with MIP. All CT scans are performed using dose optimization technique as appropriate and may include automated exposure control or mA/KV adjustment according to patient size. FINDINGS: No evidence of pulmonary thromboembolism. No acute aortic finding demonstrated. Large area of consolidated lung in the masslike spiculated configuration is seen in anterior left bas e/ lingula measuring approximately 4.1 x 3.4 cm. Areas of ground-glass opacity are present bilaterall y with emphysematous changes also present. Calcified granulomas are present in the lung apices. Mild- to-moderate cardiomegaly is present. Bulky lymphadenopathy is present in both hilar regions and mediastinum, measuring 3.4 x 2.9 cm in the left hilar region and in the mediastinum, pretracheal region measuring 2.9 x 2.4 cm. Small bilateral pleural effusions are present. Calcified pleural plaques are present bilaterally. No fracture seen. IMPRESSION: No evidence of pulmonary thromboembolism. Mild progression in the masslike airspace consolidation in the lingula with bulky adenopathy present along the mediastinum. While nonspecific, the findings are worrisome for a neoplastic etiology. Bronc hoscopy would be suggested for follow-up evaluation.
[2019-09-11] MEDS ORDERED: CEFTRIAXONE/SWI 1gm 1 GM/10 ML SYR ONE (11:44)
[2019-09-11] MEDS ORDERED: MORPHINE 2 MG/ML SYR ONE (11:44)
[2019-09-11] MEDS ORDERED: ONDANSETRON 4 MG/2 ML VIAL ONE (11:44)
[2019-09-11] MEDS ORDERED: ACETYLCYST 20% 800 MG/4 ML VIAL PO ONE (12:00)
[2019-09-11] MEDS ORDERED: AZITHROMYCIN IV 500 MG in NA CHLORIDE 0.9% 250 ML IVPB ONE (12:00)
[2019-09-11 13:03] LABS: Urine Blood NEGATIVE (NEG); Urine Glucose NEGATIVE (NEG); Urine Protein NEGATIVE (NEG); Urine Specific Gravity 1.015 (1.005-1.030)
--- NOTE | 2019-09-11 14:08 | P.HP ---
Certification for Inpatient Patient admitted to: Observation With expected LOS: <2 Midnights Patient will require the following post-hospital care: Home Health Services Practitioner: I am a practitioner with admitting privileges, knowledge of patient current condition, hospital course, and medical plan of care. Services: Services provided to patient in accordance with Admission requirements found in Title 42 Section 412.3 of the Code of Federal Regulations Patient History Date of Service: 09/11/19 Primary Care Provider: [facility]; Cardiology-Dr. Alcaraz Reason for admission: Shortness of breath History of Present Illness: 54-year-old male with history of COPD, CAD with pacemaker defibrillator, systolic CHF, and hypertension. Patient presented to the emergency room with shortness of breath. Shortness of breath has been present for the last couple of days. Worse today. He had some mild chest pain with this. He apparently ran out of medication 5 days ago. Patient normally takes carvedilol, hydralazine, Lasix, Lipitor,. He does not have home oxygen. Patient was to see Cardiology within the next couple of days. In the ER patient was found to be tachypneic. Vital signs showed elevated blood pressure. Oxygen saturations within normal range. On lab white count 12.3, hemoglobin 15. Platelet count 265. Sodium 140, potassium 4.3, BUN of 15, creatinine 1.35 with a GFR 55. Glucose 88. Troponin 0.02. Chest x-ray showed some bilateral opacities likely pulmonary edema. Pro calcitonin negative. Patient was given IV Lasix in the emergency room. Patient admitted for observation. When I saw the patient ER, he did not appear septic. Patient still tachypneic but room-air saturations within normal range. Patient was still hypertensive. Patient reports that he had just refilled his carvedilol. He had been taking hydralazine the reports that he does not like this medication. Patient only takes Combivent for COPD. Patient quit smoking 60 days ago. Allergies No Known Allergies Allergy (Verified 09/13/18 17:03) Home medications list reviewed: Yes Home Medications: Aspirin [Aspirin EC 81 MG] 81 mg PO DAILY 08/07/19 Atorvastatin Calcium 40 mg PO BEDTIME 08/07/19 Carvedilol [Coreg] 12.5 mg PO BID 08/07/19 Furosemide 20 mg PO DAILY 08/07/19 Ipratropium/Albuterol Sulfate [Combivent Respimat 20-100 Mcg] 4 gm IH Q4HP PRN 08/07/19 Isosorbide Mononitrate [Isosorbide Mononitrate ER] 30 mg PO DAILY 08/07/19 Potassium Chloride 40 meq PO DAILY 08/07/19 levoFLOXacin [Levaquin*] 500 mg PO DAILY #7 tab 08/08/19 - Past Medical/Surgical History Diabetic: No -: Glaucoma -: HTN -: COPD -: History of CVA -: Systolic CHF -: Defibrillator pacemaker -: History of tobacco and alcohol abuse -: Hyperlipidemia -: bilateral eye surgery tear ducts replaced -: left eye cataract extraction with lens replacement -: Pacemaker placement Psychosocial/ Personal History: Patient has a girlfriend. He has 6 children. 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 - Family History Mother -: Heart disease, Cancer Notes: Lymphoma, Leukemia Father -: Heart disease, Cancer Notes: Throat Cancer - Social History Smoking Status: Former smoker Alcohol use: No CD- Drugs: No Caffeine use: Yes Place of Residence: Home Review of Systems General: Weakness, As per HPI Eyes: Unremarkable ENT: Unremarkable Respiratory: Shortness of Breath, SOB with Excertion, Wheezing, As per HPI Cardiovascular: Chest Pain, Paroxysmal Noc. Dyspnea, Edema, Unremarkable Gastrointestinal: Unremarkable Genitourinary: Unremarkable Musculoskeletal: Pedal edema, As per HPI Integumentary: Unremarkable Neurological: Unremarkable Lymphatics: Unremarkable Physical Examination - Physical Exam General: Alert, In no apparent distress, Oriented x3, Cooperative HEENT: Atraumatic, Normocephalic, Mucous membr. moist/pink Neck: Supple Respiratory: Crackles/rales (Some crackles to the bases), Other (Wheezing bilateral) Cardiovascular: Normal pulses, Regular rate/rhythm Gastrointestinal: Normal bowel sounds, Soft and benign, Non-distended, No tenderness, No masses, No rebound, No guarding Musculoskeletal: No erythema, No tenderness, No warmth Integumentary: No tenderness/swelling, No erythema, No warmth, No cyanosis Neurological: Normal speech, Normal strength at 5/5 x4 extr, Normal tone, Normal affect Lymphatics: No axilla or inguinal lymphadenopathy - Studies Laboratory Data (last 24 hrs) 09/11/19 10:28: PT 11.9, INR 1.01 09/11/19 10:28: WBC 12.3 H, Hgb 15.2, Hct 45.1, Plt Count 265 09/11/19 10:28: Sodium 140, Potassium 4.3, BUN 15, Creatinine 1.35 H, Glucose 88 , Magnesium 2.3, Total Bilirubin 0.4, AST 27, ALT 31, Alkaline Phosphatase 109 Assessment and Plan - Plan Impression: Shortness of breath secondary to COPD exacerbation with mild acute on chronic systolic CHF exacerbation due to poor compliance with medication Hypertensive urgency related to poor compliance with medication Hyperlipidemia CAD now with pacemaker defibrillator Former tobacco use Plan: Shortness of breath secondary to COPD exacerbation with mild acute on chronic systolic CHF exacerbation due to poor compliance with medication: Patient will be admitted for further evaluation and observation. Will continue to monitor telemetry and cardiac enzymes. Prior echo last year showed EF of 34%. Will need to get blood pressure better controlled. Continue with carvedilol 25 mg 1 pill twice daily. Will hold off on using hydralazine due to side effects. Will add losartan. Will provide IV Lasix 40 mg twice daily for CHF. Continue 1500 cc per day fluid restriction and low-salt diet. No need for antibiotic therapy as he had does not have pneumonia. Patient previously treated for pneumonia last month. Will start prednisone 10 mg 1 pill twice daily for COPD exacerbation. Will also start Dulera and provide pro air. Will teach on CHF and COPD. Compliance with medication addressed in detail. Patient understands this. Patient has follow up with cardiology later this week. Patient will need refills on his medications including Lasix, carvedilol, Lipitor. Will also need to start Dulera at discharge. Patient will likely require taper dose of prednisone at discharge. Compliance with medication at discharge will need to be enforced. Anticipate discharge likely tomorrow. I will turn the service over to the hospitalist team tomorrow. I will go over the plan of care with him. Hypertensive urgency related to poor compliance with medication: Will start carvedilol 25 mg 1 pill twice daily. Will add losartan. Patient reports side effects with hydralazine. Patient may require additional medication. Will need to monitor and adjust medication. Hyperlipidemia: Will continue with Lipitor 40 mg daily. CAD now with pacemaker defibrillator: Will monitor on telemetry. Will provide Lovenox for DVT prophylaxis. Will continue with aspirin 81 mg daily. Patient will have follow up with cardiology later this week. Former tobacco use: Patient has not smoked in over 60 days. Continue tobacco cessation. Discharge Plan: Home Plan to discharge in: 24 Hours - Advance Directives Does patient have a Living Will: No Does patient have a Durable POA for Healthcare: No - Code Status/Comfort Care Code Status Assessed: Yes (Patient is full code) Time Spent Managing Pts Care (In Minutes): 55
[2019-09-11] MEDS ORDERED: ALBUTEROL 2.5 MG/3 ML NEB SOL NEB PRN (14:49)
[2019-09-11] MEDS ORDERED: TRAMADOL HCL 50 MG TAB PO PRN (14:49)
[2019-09-11] MEDS ORDERED: ONDANSETRON 4 MG/2 ML VIAL IV PRN (14:49)
[2019-09-11] MEDS ORDERED: IPRATROPIUM BROM 0.5MG/2.5ML NEB PRN (14:49)
[2019-09-11] MEDS ORDERED: ACETAMINOPHEN 500 MG TAB PO PRN (14:49)
--- NOTE | 2019-09-11 15:27 | EKG ---
Test Date: 2019-09-11 Test Time: 10:12:45 [employer]: BRENDAN MEASUREMENT RESULTS: Intervals: Rate: 97 OK: 124 QRSD: 96 QT: 382 QTc: 485 [place]: P: 83 OK: 124 QRS: 29 T: 196 INTERPRETIVE STATEMENTS: Normal sinus rhythm Possible Left atrial enlargement Nonspecific T wave abnormality Abnormal ECG Compared to ECG 08/07/2019 11:13:02 T-wave abnormality now present Left ventricular hypertrophy no longer present Prolonged QT interval no longer present Electronically Signed On 09-11-19 15:27:08 [employer] by Ketan Timmons
[2019-09-11] MEDS: ENOXAPARIN 40 MG/0.4 ML SQ SCH (16:23)
[2019-09-11] MEDS: FUROSEMIDE 40 MG/4 ML VIAL IV SCH (16:24)
[2019-09-11] MEDS: carvediloL 25 MG TAB PO SCH (17:04)
[2019-09-11] MEDS ORDERED: carvediloL 25 MG TAB PO SCH (18:00)
[2019-09-11] MEDS: predniSONE 10 MG TAB PO SCH (20:09)
[2019-09-11] MEDS: FAMOTIDINE 20 MG TAB PO SCH (20:09)
[2019-09-11] MEDS: DULERA 100/5 (MOMETASONE/FORMOTEROL) INHALER IH SCH (20:09)
[2019-09-11 20:20] LABS: CKMB Creatine Kinase MB 1.7 ng/mL (0.3-3.6); Troponin I 0.1 ng/mL (0.0-0.045)
[2019-09-11] MEDS ORDERED: ATORVASTATIN 40 MG TAB PO SCH (21:00)
[2019-09-12 03:11] LABS: Absolute Lymphocytes (CBC) 0.9 K/uL (0.7-4.9); Basophils % 0.7 % (0-1.3); Hematocrit 41.9 % (39.6-49.0); Lymphocytes % 9.9 % (15.3-44.8); MPV 9.2 fL (7.6-11.3); RBC Red Blood Cell Count 4.61 M/uL (4.33-5.43)
[2019-09-12 03:34] LABS: CKMB Creatine Kinase MB 1.5 ng/mL (0.3-3.6); Magnesium 2.4 mg/dL (1.8-2.4); Potassium 4.2 mmol/L (3.5-5.1); Troponin I 0.06 ng/mL (0.0-0.045)
[2019-09-12] MEDS: carvediloL 25 MG TAB PO SCH (05:11)
--- NOTE | 2019-09-12 06:56 | RAD REPORT ---
EXAM DESCRIPTION: RAD - Chest Pa And Lat (2 Views) - 09/12/2019 5:30 am CLINICAL HISTORY: follow up CHF, COPD Chest pain. COMPARISON: Chest Single View dated 09/11/2019; Chest Single View dated 08/07/2019; Chest Pa And Lat ( 2 Views) dated 09/14/2018; Chest Single View dated 09/13/2018; Chest For Pe Angio dated 09/11/2019 FINDINGS: Moderate diffuse COPD is evident. Mild improvement in left lung aeration is seen since com parative study. Small right pleural effusion noted. The heart is upper limit normal size with single lead pacer device present. No displaced fractures. IMPRESSION: Mild improvement in left lung aeration noted since comparative examination.
[2019-09-12] MEDS: DULERA 100/5 (MOMETASONE/FORMOTEROL) INHALER IH SCH (08:08)
[2019-09-12] MEDS: ENOXAPARIN 40 MG/0.4 ML SQ SCH (08:08)
[2019-09-12] MEDS: FAMOTIDINE 20 MG TAB PO SCH (08:09)
[2019-09-12] MEDS: predniSONE 10 MG TAB PO SCH (08:09)
[2019-09-12] MEDS: FUROSEMIDE 40 MG/4 ML VIAL IV SCH (08:09)
[2019-09-12 08:10] VITALS: BP 123/78
[2019-09-12 08:37] VITALS: TEMP 97
[2019-09-12] MEDS ORDERED: ASPIRIN EC 81 MG TAB PO SCH (09:00)
[2019-09-12] MEDS ORDERED: LOSARTAN POTASSIUM 50 MG TABLET PO SCH (09:00)
[2019-09-12 09:06] VITALS: O2SAT 100
--- NOTE | 2019-09-12 11:26 | P.DS ---
Admission Date: 09/11/19 Discharge Date: 09/12/19 Primary Care Provider: [facility] [place]; Cardiology-Dr. Alcaraz Disposition: ROUTINE DISCHARGE Discharge Condition: FAIR Reason for Admission: Shortness of breath Brief History of Present Illness: From H&P 54-year-old male with history of COPD, CAD with pacemaker defibrillator, systolic CHF, and hypertension. Patient presented to the emergency room with shortness of breath. Shortness of breath has been present for the last couple of days. Worse today. He had some mild chest pain with this. He apparently ran out of medication 5 days ago. Patient normally takes carvedilol, hydralazine, Lasix, Lipitor,. He does not have home oxygen. Patient was to see Cardiology within the next couple of days. In the ER patient was found to be tachypneic. Vital signs showed elevated blood pressure. Oxygen saturations within normal range. On lab white count 12.3, hemoglobin 15. Platelet count 265. Sodium 140, potassium 4.3, BUN of 15, creatinine 1.35 with a GFR 55. Glucose 88. Troponin 0.02. Chest x-ray showed some bilateral opacities likely pulmonary edema. Pro calcitonin negative. Patient was given IV Lasix in the emergency room. Patient admitted for observation. When I saw the patient ER, he did not appear septic. Patient still tachypneic but room-air saturations within normal range. Patient was still hypertensive. Patient reports that he had just refilled his carvedilol. He had been taking hydralazine the reports that he does not like this medication. Patient only takes Combivent for COPD. Patient quit smoking 60 days ago. Hospital Course: Patient is a 54-year-old male who comes in with shortness of breath. Patient has poor compliance with medications. States he ran out of his medications. He was found to have COPD exacerbation and CHF exacerbation. He was counseled regarding medication compliance. Patient was also educated regarding free fluid restriction and low sodium diet. Patient voiced understanding. Patient since he is on heart transplant list. Patient was started on diuretics. And inhalers and steroids. Patient showed significant improvement in his breathing. His chest x-ray showed improvement as well. Patient was back to baseline. Not having any significant dyspnea upon exertion. Able to ambulate without difficulty. 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 Alcaraz. Patient's blood pressure improved with medications. Hydralazine was discontinued due to patient's reaction at home with this medication. His minimal cardiac enzyme elevations likely due to CHF and uncontrolled blood pressure. No chest pain. No signs of acute coronary syndrome. Patient was discharged in a stable condition Assessment and plan Shortness of breath secondary to COPD exacerbation with mild acute on chronic systolic CHF exacerbation due to poor compliance with medication Hypertensive urgency related to poor compliance with medication Hyperlipidemia CAD now with pacemaker defibrillator Former tobacco use Vital Signs/Physical Exam: Temp Pulse Resp BP Pulse Ox 97 F 77 16 123/78 96 09/12/19 08:00 09/12/19 08:09 09/12/19 08:00 09/12/19 08:09 09/12/19 08:00 General: Alert, In no apparent distress, Oriented x3, Cachectic, Other (Appears older than stated age) HEENT: Atraumatic, PERRLA, Mucous membr. moist/pink, EOMI Neck: Supple, JVD not distended Respiratory: Clear to auscultation bilaterally, Normal air movement Cardiovascular: No edema, Normal pulses, Regular rate/rhythm, Normal S1 S2 Gastrointestinal: Normal bowel sounds, Soft and benign, Non-distended, No tenderness Musculoskeletal: No erythema, No tenderness Integumentary: No rashes, No erythema Neurological: Normal speech, Normal strength at 5/5 x4 extr, Normal tone, Cranial nerves 3-12 intact, Normal affect Laboratory Data at Discharge: WBC 8.7 K/uL (4.3-10.9) D 09/12/19 02:53 Hgb 14.2 g/dL (13.6-17.9) 09/12/19 02:53 Hct 41.9 % (39.6-49.0) 09/12/19 02:53 Plt Count 266 K/uL (152-406) 09/12/19 02:53 PT 11.9 SECONDS (9.5-12.5) 09/11/19 10:28 INR 1.01 09/11/19 10:28 Sodium 136 mmol/L (136-145) 09/12/19 02:53 Potassium 4.2 mmol/L (3.5-5.1) 09/12/19 02:53 BUN 23 mg/dL (7-18) H 09/12/19 02:53 Creatinine 1.70 mg/dL (0.55-1.3) H 09/12/19 02:53 Glucose 112 mg/dL (74-106) H 09/12/19 02:53 Magnesium 2.4 mg/dL (1.8-2.4) 09/12/19 02:53 Total Bilirubin 0.4 mg/dL (0.2-1.0) 09/11/19 10:28 AST 27 U/L (15-37) 09/11/19 10:28 ALT 31 U/L (12-78) 09/11/19 10:28 Alkaline Phosphatase 109 U/L (45-117) 09/11/19 10:28 Troponin I 0.06 ng/mL (0.0-0.045) H 09/12/19 02:53 Triglycerides 59 mg/dL (<150) 09/12/19 02:53 Cholesterol 114 mg/dL (<200) 09/12/19 02:53 HDL Cholesterol 59 mg/dL (40-60) 09/12/19 02:53 Cholesterol/HDL Ratio 1.93 09/12/19 02:53 Imagings Data: EXAM DESCRIPTION: RAD - Chest Pa And Lat (2 Views) - 09/12/2019 5:30 am CLINICAL HISTORY: follow up CHF, COPD Chest pain. COMPARISON: Chest Single View dated 09/11/2019; Chest Single View dated 2019; Chest Pa And Lat (2 Views) dated 09/14/2018; Chest Single View dated 2018; Chest For Pe Angio dated 09/11/2019 FINDINGS: Moderate diffuse COPD is evident. Mild improvement in left lung aeration is seen since comparative study. Small right pleural effusion noted. The heart is upper limit normal size with single lead pacer device present. No displaced fractures. IMPRESSION: Mild improvement in left lung aeration noted since comparative examination. Home Medications: Potassium Chloride 20 meq PO DAILY 09/11/19 Albuterol Sulfate [Proair Hfa] 8.5 gm IH Q6H PRN #1 hfa.aer.ad 09/12/19 Atorvastatin Calcium [Lipitor] 40 mg PO DAILY #30 tablet 09/12/19 Furosemide [Lasix*] 20 mg PO DAILY #30 tab 09/12/19 Losartan Potassium [Cozaar*] 50 mg PO DAILY #30 tablet 09/12/19 Mometasone/Formoterol [Dulera 100 Mcg/5 Mcg Inhaler] 2 puff IH BID #1 inhaler carvediloL [Coreg*] 50 mg PO BID 6AM 6PM #60 tab 09/12/19 predniSONE [Deltasone*] 10 mg PO BID #20 tab 09/12/19 New Medications: Albuterol Sulfate [Proair Hfa] 8.5 gm IH Q6H PRN #1 hfa.aer.ad PRN Reason: Shortness Of Breath Atorvastatin Calcium [Lipitor] 40 mg PO DAILY #30 tablet carvediloL [Coreg*] 50 mg PO BID 6AM 6PM #60 tab Furosemide [Lasix*] 20 mg PO DAILY #30 tab Losartan Potassium [Cozaar*] 50 mg PO DAILY #30 tablet Mometasone/Formoterol [Dulera 100 Mcg/5 Mcg Inhaler] 2 puff IH BID #1 inhaler predniSONE [Deltasone*] 10 mg PO BID #20 tab Patient Discharge Instructions: f/up w PCP in 2-3 days. f/up w landscaping crew leader Dr. Alcaraz on 09/14/2019. Return to ER for worsening condition Diet: Low sodium (1500ml fluid restriction) Activity: Ad lyssa
--- NOTE | 2019-09-15 10:06 | P.PN ---
Date of Service: 09/15/19 Patient's blood cultures grew out Acinetobacter. Levaquin 500 mg p.o. daily for 10 days has been prescribed. Patient was contacted. He understands that it is important for him to obtain these antibiotics that were sent to his pharmacy and he will need to follow up with his primary care physician and have repeat blood cultures drawn once antibiotics are completed. If he has fevers chills worsening condition he needs to come into the ER for further evaluation.
== END 2019-09-12 09:30 | disposition home or self-care (01) ==
LOC: ER 09:26 → ERHOLD 12:19 → 4TH 14:48
PROVIDERS: ADMIT Family Medicine; ATTEND Family Medicine
DX: J44.1 Chronic obstructive pulmonary disease with (acute) exacerbation (principal); I11.0 Hypertensive heart disease with heart failure; I50.23 Acute on chronic systolic (congestive) heart failure; I16.0 Hypertensive urgency; I25.10 Atherosclerotic heart disease of native coronary artery without angina pectoris; Z95.810 Presence of automatic (implantable) cardiac defibrillator; Z87.891 Personal history of nicotine dependence; Z91.14 Patient's other noncompliance with medication regimen; E78.5 Hyperlipidemia, unspecified; R78.81 Bacteremia; B96.89 Other specified bacterial agents as the cause of diseases classified elsewhere
CPT/HCPCS: 96365; 96367; 93005; 87040 ×2; 85025 ×2; 80048 ×2; 36415; 83735 ×2; 82550 ×2; 87205 ×2; 85610; 80061; 80076; 83605; 87077; 87186; 81003; 84484 ×3; 82553 ×2; 84145; 83880; 71275; 71045; 71046; 96375; 99285; Q9967; J1940 ×3; J7512 ×2; J0456; J1650 ×2; J2270; J7606; J0696; J7030; J2405; G0378 ×3; J2250; J2704; J3010

== ENCOUNTER 2019-12-25 18:17 | Observation (INO) | payer MEDICAID ==
[2019-12-25] MEDS ORDERED: ASPIRIN 81 MG CHEWABLE TABLET ONE (18:58)
[2019-12-25] MEDS ORDERED: MORPHINE 4 MG/ML SYR ONE (18:59)
[2019-12-25] MEDS ORDERED: FAMOTIDINE 20 MG/2 ML VIAL IV ONE (18:59)
[2019-12-25] MEDS ORDERED: ONDANSETRON 4 MG/2 ML VIAL ONE (18:59)
[2019-12-25] MEDS ORDERED: ENOXAPARIN 80 MG/0.8 ML SQ ONE (18:59)
[2019-12-25 19:08] LABS: Absolute Lymphocytes (CBC) 1.2 K/uL (0.7-4.9); Basophils % 0.2 % (0-1.3); Hematocrit 45.7 % (39.6-49.0); Lymphocytes % 15.5 % (15.3-44.8); MPV 9.2 fL (7.6-11.3); RBC Red Blood Cell Count 5.09 M/uL (4.33-5.43)
--- OUTSIDE RECORDS SUMMARY | 2019-12-25 19:35 | XMS REPORT | Summary of Care ---
:1965 Author Organization [address] [address] Care Team Providers Name Role Phone [facility] Service/Team Unavailable Hailee Briceno Insurance Hmo MD Chu Primary Care Provider Renny Booker DO Machine [employer] Reason for Visit Reason Comments Appointment Encounter Details Date Type Department Care Team Description 09/26/2019 Telephone [facility] Cardiology- [place] Ramonita Art FNP Appointment [address] [id number] [address] [place] [place] [address] [place] [phone] Allergies No Known Allergiesdocumented as of this encounter (statuses as of 09/26/2019) Medications Medication Sig Dispensed Refills Start Date End Date Status aspirin 81 mg chewable Take 1 tablet by 30 tablet 11 04/09/2019 Active tabletIndications: mouth daily. Acute on chronic combined systolic and diastolic congestive heart failure isosorbide mononitrate Take 1 tablet by 30 tablet 2 04/09/2019 Active 30 mg 24 hr mouth daily. tabletIndications: Acute on chronic combined systolic and diastolic congestive heart failure nitroglycerin 0.[address] 1 tablet 1 Bottle 2 04/08/2019 Active sublingual under the tongue tabletIndications: every 5 (five) Acute on chronic minutes as needed combined systolic and for Chest pain. diastolic congestive heart failure furosemide 40 mg Take 1 tablet by 60 tablet 3 06/06/2019 Active tabletIndications: mouth 2 (two) Systolic heart failure, times daily. unspecified HF chronicity, Essential hypertension, Cardiomyopathy, unspecified type albuterol-ipratropium Inhale 1 Puff 4 4 g 3 06/06/2019 Active (COMBIVENT RESPIMAT) (four) times 20-100 mcg/actuation daily. inhalerIndications: Chronic obstructive pulmonary disease, unspecified COPD type tiotropium bromide 2.5 Inhale 1 Puff 2 4 g 3 06/06/2019 Active mcg/actuation (two) times daily MistIndications: as needed Chronic obstructive (Bronchospasm). pulmonary disease, unspecified COPD type Miscellaneous Medical I10 - Dispense 1 Kit 0 06/06/2019 Active Supply KitIndications: blood pressure Systolic heart failure, cuff (any brand), unspecified HF take BP at home chronicity, Essential BID hypertension, Cardiomyopathy, unspecified type atorvastatin 40 mg Take 1 tablet by 30 tablet 2 07/06/2019 Active tabletIndications: mouth at bedtime. Acute on chronic combined systolic and diastolic congestive heart failure potassium chloride 20 Take 2 tablets by 60 tablet 0 07/06/2019 Active mEq tabletIndications: mouth daily. Systolic heart failure, unspecified HF chronicity, Cardiomyopathy, unspecified type carvediloL 25 mg tablet Take 1 tablet by 60 tablet 3 0 Active mouth 2 (two) times daily with meals. hydrALAZINE 25 mg Take 1 tablet by 90 tablet 3 08/28/2019 Active tablet mouth 3 (three) times daily. documented as of this encounter (statuses as of 09/26/2019) Active Problems Problem Noted Date Former smoker 07/12/2019 Encounter for screening for malignant neoplasm of lung 07/12/2019 Hypertensive emergency 07/04/2019 Acute on chronic combined systolic and diastolic conge stive heart failure 07/04/2019 ICD (implantable cardioverter-defibrillator) in place 07/04/2019 Troponin I above reference range 07/04/2019 E46 Unspecified severe protein-calorie malnutrition 1 09/04/2018 CKD (chronic kidney disease) stage 3, GFR 30-59 ml/min 06/08/2019 Systolic heart failure, unspecified HF chronicity 05/26 Mixed hyperlipidemia 06/06/2019 Dysthymia 06/06/2019 Need for hepatitis C screening test 06/06/2019 Chronic obstructive pulmonary disease, unspecified RISK [employer]OL [employer]OR D type 06/06/2019 CHF exacerbation 05/19/2019 SOB (shortness of breath) 04/06/2019 Hypertensive urgency 10/21/2016 Alcohol use 10/21/2016 Cardiomyopathy 10/21/2016 Chest pain 10/21/2016 Chest pain, unspecified 10/20/2016 Essential hypertension 10/20/2016 Hypertension 10/20/2016 documented as of this encounter (statuses as of 09/26/2019) Immunizations Name Administration Dates Next Due Influenza Virus Vaccine Quad .5 mL IM 6+ MO 05/11/2019 documented as of this encounter Social History Tobacco Use Types Packs/Day Years Used Date Former Smoker Cigarettes 4 10/20/1976 - 1 Smokeless Tobacco: Never Used Comments: 4-5 ppd for 42 years Alcohol Use Drinks/Week oz/Week Comments Not Currently 12 pack every da y at least for 40 years; now drinks 6 pack per week. Pt denies ETOH use since 05/19/2019 Financial Resource Strain Answer Date Recorded How hard is it for you to pay for the very basics like Not h madelyn at all 04/06/2019 food, housing, medical care, and heating? Food Insecurity Answer Date Recorded Within the past 12 months, you worried that your food would Never true 04/06/2019 run out before you got money to buy more. Within the past 12 months, the food you bought just didn't N ever true 04/06/2019 last and you didn't have money to get more. Transportation Needs Answer Date Recorded In the past 12 months, has lack of transportation kept you f rom No 04/06/2019 medical appointments or from getting medications? In the past 12 months, has lack of transportation kept you f rom No 04/06/2019 meetings, work, or getting things needed for daily living? Sex Assigned at Date Recorded Not on file Job Start Date Occupation Industry Not on file Not on file Not on file Travel History Travel Start Travel End No recent travel history available. documented as of this encounter Last Filed Vital Signs Not on filedocumented in this encounter Plan of Treatment Date Type Specialty Care Team Description 10/02/2019 Office Visit Cardiology Fac, Adc Heart Failure Cardio 10/11/2019 Office Visit Family Medicine Jluis Sage MD [address] [place] [address] Dr Gardner [address] [place] [address], [facility] 15 [phone] 11/27/2019 Office Visit Cardiology Taqueria Alcaraz M D [address] [facility] [address] [place] [address] 15 [phone] 11/28/2019 Appointment Cardiac Electrophysiology Outpt-Marilynn, Pacemaker/Icd Name Type Priority Associated Diagnoses Order S chedule BASIC METABOLIC PANEL LAB Routine Chronic systolic he art Expected: 09/26/2019, (10430)(NA, K, CL, CO2, failure Expi res: 09/25/2020 GLUCOSE, BUN, CREATININE, CA) MAGNESIUM LAB Routine Chronic systolic heart Expec gracie: 09/26/2019, failure Expires: 2020 N-TERMINAL PRO-BNP LAB Routine Chronic systolic heart Expected: 09/26/2019, failure Expires: 2020 Health Maintenance Due Date Last Done Comments [...] Diagnosis Chronic systolic heart failure - Primary documented in this encounter Insurance Payer Benefit Plan / Subscriber ID Effective Phone Address [facility] Group Dates ZACHARIAH SONI xxxxxxxxx 2014-[address] [place] [id number] [place] MED[place]ID [place], [place] documented as of this encounter
--- OUTSIDE RECORDS SUMMARY | 2019-12-25 19:35 | XMS REPORT | Continuity of Care Document ---
:1965 Author Organization [facility] t Address [address] [place] [address] Care Team Providers Name Role Phone Sulma LEE Attending Clinician Kieran LEE Attending Clinician Chu LEE Attending Clinician Brittany Brothers Attending Clinician Problems This patient has no known problems. Allergies, Adverse Reactions, Alerts This patient has no known allergies or adverse reactions. Medications This patient has no known medications. Procedures This patient has no known procedures. Encounters Start End Encounter Admission Attending Care Care Encounter Source Date/Time Date/Time Type Type Clinicians Facility Department ID 2019-11-28 2019-11-28 [facility] Dilcia Ozuna [id number] 14:15:00 23:59:00 Encounter Mansi Nobles [id number] [facility] [id number] 2019-11-27 2019-11-27 [facility] PATRICIA Alcaraz [id number] 08:28:58 08:48:58 ne Visit Taqueria Douglaston [id number] [place] [id number] [place] [phone] nal 9 [facility] 2019-11-18 2019-11-18 Refill PATRICIA Sage [id number] 00:00:00 00:00:00 Jluis Luevano [id number] [place] [id number] [facility] [phone] [address] 2019-10-11 2019-10-11 [facility] [id number] 00:00:00 00:00:00 Jluis Luevano [id number] [place] [id number] [facility] [phone] [address] 2019-09-26 2019-09-26 [facility] [id number] 00:00:00 00:00:00 [facility] [id number] [place] [id number] [place] [id number] Primary & 059 Specialty Care 2019-08-28 2019-08-28 Office [facility] [id number] 14:56:00 15:45:46 Visit Taqueria Luevano [id number] [place] [id number] [facility] [phone] [address] Results This patient has no known results.
--- OUTSIDE RECORDS SUMMARY | 2019-12-25 19:36 | XMS REPORT | Summary of Care ---
:1965 Author Organization [facility] Address [address] [place] [id number] Care Team Providers Name Role Phone [facility] Service/Team Unavailable Hailee Briceno Insurance Hmo MD Chu Primary Care Provider Renny Booker DO Salvage Cutter Reason for Visit Reason Comments Follow-up Encounter Details Date Type Department Care Team Description 11/27/2019 Telemedicine Visit [facility] Taqueria Alcaraz MD Chronic systolic heart failure (Primary Dx); Cardiology- [address] [place] [address] Mixed hype rlipidemia; [facility] Essential hypertension; [address] [place] [address] [address] ICD (implantable cardioverter-defibrilla tor) in place; [facility], [address] [place], [place] Systolic heart failure, unsp ecified HF chronicity; [place] [address] Cardiomyopathy, unspecified type [id number] Allergies Active Allergy Reactions Severity Noted Date Comments Hydralazine Itching 11/27/2019 documented as of this encounter (statuses as of 11/27/2019) Medications Medication Sig Dispensed Refills Start Date End Date Status aspirin 81 mg Take 1 tablet 30 tablet 11 04/09/2019 A ctive chewable by mouth tabletIndications: daily. Acute on chronic combined systolic and diastolic congestive heart failure isosorbide Take 1 tablet 30 tablet 2 04/09/2019 Acti ve mononitrate 30 mg by mouth 24 hr daily. tabletIndications: Acute on chronic combined systolic and diastolic congestive heart failure tiotropium bromide Inhale 1 Puff 4 g 3 06/06/2019 Active 2.5 mcg/actuation 2 (two) times MistIndications: daily as Chronic needed obstructive (Bronchospasm pulmonary disease, ). unspecified COPD type Miscellaneous I10 - 1 Kit 0 06/06/2019 [employer] Dispense KitIndications: blood Systolic heart pressure cuff failure, (any brand), unspecified HF take BP at chronicity, home BID Essential hypertension, Cardiomyopathy, unspecified type atorvastatin 40 mg Take 1 tablet 30 tablet 2 07/06/2019 Active tabletIndications: by mouth at Acute on chronic bedtime. combined systolic and diastolic congestive heart failure carvediloL 25 mg Take 1 tablet 60 tablet 3 08/28/2019 Active tablet by mouth 2 (two) times daily with meals. albuterol-ipratrop Inhale 1 Puff 4 g 3 10/12/2019 Active ium (COMBIVENT 4 (four) RESPIMAT) 20-100 times daily. mcg/actuation inhalerIndications : Chronic obstructive pulmonary disease, unspecified COPD type nitroglycerin 0.4 Place 1 1 Bottle 0 11/20/2019 A ctive mg sublingual tablet under tabletIndications: the tongue Acute on chronic every 5 combined systolic (five) and diastolic minutes as congestive heart needed for failure Chest pain. furosemide 40 mg Take 1 tablet 180 tablet 1 11/27/2019 Active tabletIndications: by mouth 2 Systolic heart (two) times failure, daily. unspecified HF chronicity, Essential hypertension, Cardiomyopathy, unspecified type potassium chloride Take 2 180 tablet 1 11/27/2019 Active 20 mEq tablets by tabletIndications: mouth daily. Systolic heart failure, unspecified HF chronicity, Cardiomyopathy, unspecified type amLODIPine 10 mg Take 1 tablet 30 tablet 3 11/27/2019 Active tabletIndications: by mouth Essential daily. hypertension furosemide 40 mg Take 1 tablet 60 tablet 3 06/06/2019 11/27/19 2 Discontinued tabletIndications: by mouth 2 0 (Reorder) Systolic heart (two) times failure, daily. unspecified HF chronicity, Essential hypertension, Cardiomyopathy, unspecified type potassium chloride Take 2 60 tablet 0 07/06/2019 Discontinued 20 mEq tablets by 0 (Reorder) tabletIndications: mouth daily. Systolic heart failure, unspecified HF chronicity, Cardiomyopathy, unspecified type hydrALAZINE 25 mg Take 1 tablet 90 tablet 3 08/28/2019 02 Discontinued tablet by mouth 3 0 (three) times daily. 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 06/06/2019 CHF exacerbation 05/19/2019 SOB (shortness of breath) 04/06/2019 Hypertensive urgency 10/21/2016 Alcohol use 10/21/2016 Cardiomyopathy 10/21/2016 Chest pain 10/21/2016 Chest pain, unspecified 10/20/2016 Essential hypertension 10/20/2016 Hypertension 10/20/2016 documented as of this encounter (statuses as of 11/27/2019) Immunizations Name Administration Dates Next Due Influenza [...] Signs Not on filedocumented in this encounter Progress Notes Taqueria Alcaraz MD - 11/27/2019 1:20 PM CDT [facility] Cardiology Consult Note CHIEF COMPLAINT: Chief Complaint Patient presents with Follow-up History of Present Illness: This is a 54 year-old male with PMH HTN, HFrEF, s/p ICD, CKD 3 etc. He was admitted to [facility] in 06/2019 for SOB and chest pain. Recent admission to [place] for ICD implantation. Stated that his BP medications were adjusted. Since that time his BP has been elevated. In [facility] he was found to have pulmonary edema, elevated BP > 190, with mildly elevated troponin. We increased coreg during last admission. Could not take hydralazine due to itching. BP is still elevated in 160s. Sleeps on 2 pillows. Able to walk 1 block. Weight is 132 lbs. ECHO 04/2019 - The overall left ventricular function appears severely reduced. LVEF = 15-20%. - There is severe global hypokinesis of [...] Last attempt to quit: 05/19/2019 Years since quittin.5 Smokeless tobacco: Never Used Tobacco comment: 4-5 [...] file Gets together: Not on file Attends advent service: Not on file Active member of [...] Social History Narrative Not on file ALLERGIES Allergies Allergen Reactions Hydralazine Itching MEDICATIONS Patient's Medications START taking these medications AMLODIPINE 10 MG TABLET Take 1 tablet by mouth daily. CONTINUE taking these medications which have NOT CHANGED ALBUTEROL-IPRATROPIUM (COMBIVENT RESPIMAT) 20-100 MCG/ACTUATION INHALER Inhale 1 Puff 4 (four) times daily. ASPIRIN 81 MG CHEWABLE TABLET Take 1 tablet by mouth daily. ATORVASTATIN 40 MG TABLET Take 1 tablet by mouth at bedtime. CARVEDILOL 25 MG TABLET Take 1 tablet by mouth 2 (two) times daily with meals. ISOSORBIDE MONONITRATE 30 MG 24 HR TABLET Take 1 tablet by mouth daily. [employer] MEDICAL SUPPLY KIT I10 - Dispense blood pressure cuff (any brand), take BP at homeBID NITROGLYCERIN 0.[address] 1 tablet under the tongue every 5 (five) minutes as needed for Chest pain. TIOTROPIUM BROMIDE 2.5 MCG/ACTUATION MIST Inhale 1 Puff 2 (two) times daily as needed (Bronchospasm). START taking Modified Medications as Prescribed Modified Medication Previous Medication FUROSEMIDE 40 MG TABLET furosemide 40 mg tablet Take 1 tablet by mouth 2 (two) times daily. Take 1 tablet by mouth 2 (two) times daily. POTASSIUM CHLORIDE 20 MEQ TABLET potassium chloride 20 mEq tablet Take 2 tablets by mouth daily. Take 2 tablets by mouth daily. STOP taking these medications HYDRALAZINE 25 MG TABLET Take 1 tablet by mouth 3 (three) times daily. There are no exam notes on file for this visit. I have reviewed the nursing notes obtained by my nurse and concur as detailed above. REVIEW OF SYSTEMS: Comprehensive 10-system review was conducted and were negative except for what's noted in the HPI. The following systems were reviewed: Constitutional, cardiovascular, respiratory, gastrointestinal, genitourinary, musculoskeletal, neurologic, psychiatric, endocrinological, and hematological. PHYSICAL EXAMINATION: Constitutional: Alert and in no distress Respiratory: Breathing comfortably Neurology: Answers questions appropriately LABS - Reviewed pertinent labs as below: [...] review ASSESSMENT/PLAN 1. Chronic systolic heart failure BASIC METABOLIC PANEL (NA, K, CL, CO2, GLUCOSE, BUN, CREATININE, CA) 2. Mixed hyperlipidemia 3. Essential hypertension furosemide 40 mg tablet amLODIPine 10 mg tablet 4. ICD (implantable cardioverter-defibrillator) in place 5. Systolic heart failure, unspecified HF chronicity furosemide 40 mg tablet potassium chloride 20 mEq tablet 6. Cardiomyopathy, unspecified type furosemide 40 mg tablet potassium chloride 20 mEq tablet Uncontrolled HTN--We increased coreg to 25 mg BID. Could not tolerate hydralazine due to itching. Will add amlodipine 10 mg daily. Daily BP log to review. Low salt diet. Chronic HFrEF--Current volume status is good. On lasix 40 mg BID. Continue coreg. Not on ACEI/ARB due to previous ANGELINA while taking lisinopril. On Imdur. Refer to HF team. BNP. Troponin elevation--type 2 OK due to the above. Normal LHC in 08/2018. S/p ICD RTC 3 months Telehealth service ? Verbal consent obtained from patient Roby Ortiz for telehealth sevice provided ? My location: [facility] cardiology clinic ? Patient location: Home ? Format: Communication with patient was conducted via Telephone due to patient unable to obtain video call option ? A total of 25 minutes spent on the telephone with the patient/chart review/documentation Taqueria Alcaraz MD, FAC, MADI [employer], Division of Cardiology [facility] documented in this encounter Plan of Treatment Date Type Specialty Care Team Description 02/13/2020 Appointment Cardiac Electrophysiology Outpt-Marilynn, Pace maker/Icd Name Type Priority Associated Diagnoses Order S chedule BASIC METABOLIC PANEL LAB Routine Chronic systolic he art 1 Occurrences starting (NA, K, CL, CO2, failure 11/27/2019 until GLUCOSE, BUN, 02/27/2020 CREATININE, CA) Health Maintenance Due Date Last Done Comments [...] Diagnosis Chronic systolic heart failure - Primary Mixed hyperlipidemia Essential hypertension Unspecified essential hypertension ICD (implantable cardioverter-defibrilla tor) in place Systolic heart failure, unspecified HF c hronicity Cardiomyopathy, unspecified type documented in this encounter Insurance Payer Benefit Plan / Subscriber ID Effective Phone Address T [facility] Group Dates ZACHARIAH SONI xxxxxxxxx 2014-Darrick [place]les [place] [id number] MANAGED MEDICAID [place] (Work) documented as of this encounter
--- OUTSIDE RECORDS SUMMARY | 2019-12-25 19:36 | XMS REPORT | Summary of Care ---
:1965 Author Organization [facility] Address [address] [place] [address] Care Team Providers Name Role Phone [facility] Service/Team Unavailable Hailee Briceno Insurance Hmo MD Chu Primary Care Provider Renny Booker DO Metallurgical Tester Reason for Visit Reason Comments Refill Request Encounter Details Date Type Department Care Team Description 10/11/2019 Refill [facility] Pediatric and Jluis Santillan MD Refill Request Adult Primary Care- [address] [facility] [place] [address] [facility] , [place] [address] [address] [place] [address] [phone] Allergies No Known Allergiesdocumented as of this encounter (statuses as of 10/12/2019) Medications Medication Sig Dispensed Refills Start Date [...] 0.4 Place 1 1 Bottle 2 04/08/2019 A ctive mg sublingual tablet under tabletIndications: the tongue Acute on chronic every 5 combined systolic (five) and diastolic minutes as congestive heart needed for failure Chest pain. furosemide 40 mg Take 1 tablet 60 tablet 3 06/06/2019 Active tabletIndications: by mouth 2 Systolic heart (two) times failure, daily. unspecified HF chronicity, Essential hypertension, Cardiomyopathy, unspecified type tiotropium bromide Inhale 1 Puff 4 g 3 06/06/2019 Active 2.5 mcg/actuation 2 (two) times MistIndications: daily as Chronic needed obstructive (Bronchospasm pulmonary disease, ). unspecified COPD type Miscellaneous I10 - 1 Kit 0 06/06/2019 [employer] Dispense KitIndications: blood Systolic heart [...] tablet by mouth 3 (three) times daily. albuterol-ipratrop Inhale 1 Puff 4 g 3 10/12/2019 Active ium (COMBIVENT 4 (four) RESPIMAT) 20-100 times daily. mcg/actuation inhalerIndications : Chronic obstructive pulmonary disease, unspecified COPD type albuterol-ipratrop Inhale 1 Puff 4 g 3 06/06/2019 Discontinued ium (COMBIVENT 4 (four) 0 (Reor angus) RESPIMAT) 20-100 times daily. 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 06/06/2019 CHF exacerbation 05/19/2019 SOB (shortness of breath) 04/06/2019 Hypertensive urgency 10/21/2016 Alcohol use 10/21/2016 Cardiomyopathy 10/21/2016 Chest pain 10/21/2016 Chest pain, unspecified 10/20/2016 Essential hypertension 10/20/2016 Hypertension 10/20/2016 documented as of this encounter (statuses as of 10/12/2019) Immunizations Name Administration Dates Next Due Influenza [...] Treatment Date Type Specialty Care Team Description 11/27/2019 Office Visit Cardiology Taqueria Alcaraz M D [address] [place] [address] [phone] 11/28/2019 Appointment Cardiac Electrophysiology Outpt-Marilynn, Pacemaker/Icd Health [...] in this encounter Visit Diagnoses Diagnosis Chronic obstructive pulmonary disease, u nspecified COPD type documented in this encounter Insurance Payer Benefit Plan / Subscriber ID Effective Phone Address T [facility] Group Dates ZACHARIAH SONI xxxxxxxxx 2014-Darrick SEBASTIAN [place] [id number] MA[place] MEDICAID [place], [place] documented as of this encounter
--- OUTSIDE RECORDS SUMMARY | 2019-12-25 19:37 | XMS REPORT | Summary of Care ---
:1965 Author Organization [facility] - Health [address] [address] Care Team Providers Name Role Phone [facility] Service/Team Unavailable Hailee Briceno Insurance Hmo MD Chu Primary Care Provider Renny Booker DO Coding Compliance Auditor Reason for Visit (Routine) Status Reason Specialty Diagnoses / Referred By Referred To Procedures Contact Contact Authorized IM-INTERNAL MEDICINE / Diagnoses 2-3wk woud/device check Geoff Almaraz, Ep Device Cardiac Procedures EP DEVICE CHECK NEW EP DEVICE Clinic-[facility] Electrophysiology [address] [place] [address] Medical [facility] [phone] Dilcia Nobles Phone: [facility] [phone] Fax: [phone] [place], [facility] [address] Encounter Details Date Type Department Care Team Description 11/28/2019 Hospital Encounter [facility] Heart Cornell Ozuna MD [address] [place] [phone] [facility] Center EP Device Marilynn, Remote Device Check At Home - Clinic [facility] Dilcia Nobles [facility] [address] [facility] [address] [place] [address] Allergies Active Allergy Reactions Severity Noted Date Comments Hydralazine Itching 11/27/2019 documented as of this encounter (statuses as of 11/29/2019) Medications Medication Sig Dispensed Refills Start Date [...] and diastolic congestive heart failure tiotropium bromide 2.5 Inhale 1 Puff 2 4 g 3 06/06/2019 Active mcg/actuation (two) times daily MistIndications: as needed Chronic obstructive (Bronchospasm). pulmonary disease, unspecified COPD type Miscellaneous Medical I10 - Dispense 1 Kit 0 06/06/2019 Active Supply KitIndications: blood pressure Systolic heart cuff (any brand), failure, unspecified take BP at home HF chronicity, BID Essential hypertension, Cardiomyopathy, unspecified type atorvastatin 40 mg Take 1 tablet by 30 tablet 2 07/06/2019 Active tabletIndications: mouth at bedtime. Acute on chronic combined systolic and diastolic congestive heart failure carvediloL 25 mg Take 1 tablet by 60 tablet 3 08/28/2019 Active tablet mouth 2 (two) times daily with meals. albuterol-ipratropium Inhale 1 Puff 4 4 g 3 10/12/2019 Active (COMBIVENT RESPIMAT) (four) times 20-100 mcg/actuation daily. inhalerIndications: Chronic obstructive pulmonary disease, unspecified COPD type nitroglycerin 0.[address] 1 tablet 1 Bottle 0 11/20/2019 Active sublingual under the tongue tabletIndications: every 5 (five) Acute on chronic minutes as needed combined systolic and for Chest pain. diastolic congestive heart failure furosemide 40 mg Take 1 tablet by 180 tablet 1 11/27/2019 Active tabletIndications: mouth 2 (two) Systolic heart times daily. failure, unspecified HF chronicity, Essential hypertension, Cardiomyopathy, unspecified type potassium chloride 20 Take 2 tablets by 180 tablet 1 0 Active mEq tabletIndications: mouth daily. Systolic heart failure, unspecified HF chronicity, Cardiomyopathy, unspecified type amLODIPine 10 mg Take 1 tablet by 30 tablet 3 11/27/2019 Active tabletIndications: mouth daily. 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 06/06/2019 CHF exacerbation 05/19/2019 SOB (shortness of breath) 04/06/2019 Hypertensive urgency 10/21/2016 Alcohol use 10/21/2016 Cardiomyopathy 10/21/2016 Chest pain 10/21/2016 Chest pain, unspecified 10/20/2016 Essential hypertension 10/20/2016 Hypertension 10/20/2016 documented as of this encounter (statuses as of 11/29/2019) Immunizations Name Administration Dates Next Due Influenza [...] Team Description 02/13/2020 Appointment Cardiac Electrophysiology Outpt-Marilynn, Pacemaker/Icd 02/28/2020 Office Visit Cardiology Taqueria Alcaraz M D [address] [facility] [address] [place] [address] [phone] Health Maintenance Due Date Last Done Comments [...] Results Not on filedocumented in this encounter Insurance Payer Benefit Plan / Subscriber ID Effective Phone Address T ype Group Dates ZACHARIAH SONI xxxxxxxxx 2014-Darrick Bowles [address] [place] [address] [place] MEDICA[place], [place] [phone] [id number] (Work) documented as of this encounter
--- OUTSIDE RECORDS SUMMARY | 2019-12-25 19:37 | XMS REPORT | Summary of Care ---
:1965 Author Organization [facility] Address [address] [place] [address] Care Team Providers Name Role Phone [facility] Service/Team Unavailable Hailee Briceno Insurance Hmo MD Chu Primary Care Provider Renny Booker DO Manager Cardiac Reason for Visit Reason Comments Refill Request Encounter Details Date Type Department Care Team Description 11/18/2019 Refill [facility] Pediatric and Jluis Santillan MD Refill Request Adult Primary Care- [address] [facility] [place] [address] [facility] , [place] [address] [address] [place] [address] [phone] Allergies Active Allergy Reactions Severity Noted Date Comments Hydralazine Itching 11/27/2019 documented as of this encounter (statuses as of 11/30/2019) Medications Medication Sig Dispensed Refills Start Date [...] Miscellaneous I10 - 1 Kit 0 06/06/2019 [employer] Dispense KitIndications: blood Systolic heart [...] type nitroglycerin 0.4 Place 1 1 Bottle 2 04/08/2019 D iscontinued mg sublingual tablet under 0 (Re order) tabletIndications: the tongue Acute on chronic every [...] as of this encounter (statuses as of 11/30/2019) Active Problems Problem Noted Date Former smoker [...] test 06/06/2019 Chronic obstructive pulmonary disease, unspecified 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 06/06/2019 CHF exacerbation 05/19/2019 SOB (shortness of breath) 04/06/2019 Hypertensive urgency 10/21/2016 Alcohol use 10/21/2016 Cardiomyopathy 10/21/2016 Chest pain 10/21/2016 Chest pain, unspecified 10/20/2016 Essential hypertension 10/20/2016 Hypertension 10/20/2016 documented as of this encounter (statuses as of 11/30/2019) Immunizations Name Administration Dates Next Due Influenza [...] Office Visit Cardiology Taqueria Alcaraz M D [address] [place] [address] 15 [phone] Health Maintenance Due Date Last Done Comments [...] filedocumented in this encounter Visit Diagnoses Diagnosis Systolic heart failure, unspecified HF c hronicity Essential hypertension Unspecified essential hypertension Cardiomyopathy, unspecified type documented in this encounter Insurance Payer Benefit Plan / Subscriber ID Effective Phone Address T e Group Dates ZACHARIAH SONI xxxxxxxxx 2014-Darrick Bowles [address] Medic [facility] [place] [address] MANAGED MEDICAID [place] documented as of this encounter
--- NOTE | 2019-12-25 19:44 | RAD REPORT ---
EXAM DESCRIPTION: RAD - Chest Single View - 12/25/2019 7:35 pm CLINICAL HISTORY: CHEST PAIN Chest pain. COMPARISON: Chest Pa And Lat (2 Views) dated 09/12/2019; Chest Single View dated 09/11/2019; Chest Sin gle View dated 08/07/2019; Chest Pa And Lat (2 Views) dated 09/14/2018 FINDINGS: Portable technique limits examination quality. Mild progression is seen left lung pulmonary opacities since 09/12/2019 study. The right lung is andrew sly clear. The heart is upper limit of normal in size. Single lead pacer/ defibrillator device is pre sent. IMPRESSION: Mild worsening in left lung aeration seen since comparative study.
[2019-12-25 19:51] LABS: ALT/SGPT 18 U/L (12-78); AST/SGOT 14 U/L (15-37); Albumin 3.3 g/dL (3.4-5.0); Alkaline Phosphatase 111 U/L (45-117); BUN Blood Urea Nitrogen 24 mg/dL (7-18); Bicarbonate 24 mmol/L (21-32); Bilirubin Direct < 0.1 mg/dL (0-0.2); Bilirubin Total 0.2 mg/dL (0.2-1.0); Glucose Level 98 mg/dL (74-106); Magnesium 2.1 mg/dL (1.8-2.4); NT PRO-BNP 6626 pg/mL (<125); Protein, Total 7.7 g/dL (6.4-8.2); Sodium Level 138 mmol/L (136-145); Troponin (Emerg Dept Use Only) 0.02 ng/mL (0.0-0.045)
[2019-12-25] MEDS ORDERED: ALPRAZOLAM 0.25 MG TABLET PO PRN (20:06)
[2019-12-25] MEDS ORDERED: MORPHINE 4 MG/ML SYR IV PRN (20:06)
[2019-12-25] MEDS ORDERED: ACETAMINOPHEN 500 MG TAB PO PRN (20:06)
--- NOTE | 2019-12-25 20:22 | ER ---
Nurse's Notes [facility] Name: Roby Ortiz Age: 54 yrs Sex: Male : 1965 Arrival Date: 12/25/2019 Time: 18:20 Bed 4 Private MD: Diagnosis: Other chest pain;Dyspnea-increased hilar adenopathy;Angina pectoris;Unspecified kidney failure-insufficency;Unspecified combined systolic (congestive) and diastolic (congestive) heart failure Presentation: 12/24 18:23 Chief complaint: Patient states: Passed out on porch. + CP and SOB. Pacemaker/defib ll1 machine at home went off he said. Coronavirus screen: Proceed with normal triage. Patient denies a cough. Patient denies shortness of breath or difficulty breathing. Patient denies measured and/or subjective temperature greater than 100.4F prior to today's visit. Patient denies travel on a cruise ship or to a country the [facility] currently lists as an affected area. Patient denies contact with known and/or suspected case of COVID-19. Ebola Screen: Patient denies travel to an Ebola-affected area in the 21 days before illness onset. Initial Sepsis Screen: Does the patient meet any 2 criteria? No. Patient's initial sepsis screen is negative. Risk Assessment: Do you want to hurt yourself or someone else? Patient reports no desire to harm self or others. Onset of symptoms was December 25, 2019. 18:23 Method Of Arrival: Wheelchair ll1 18:23 Acuity: ELAINE 2 ll1 Historical: - Allergies: 18:25 PENICILLINS; ll1 - PMHx: 18:25 CHF; COPD; heart transplant list; Hypertension; Myocardial infarction; Pacemaker; ll1 - PSHx: 18:25 pacemaker; ll1 - Immunization history:: Adult Immunizations up to date. - Social history:: Smoking status: Patient/guardian denies using tobacco, Patient/guardian denies using alcohol, tobacco products. - Family history:: not pertinent. Screenin:51 Abuse screen: Denies threats or abuse. Denies injuries from another. Nutritional jl7 screening: No deficits noted. Tuberculosis screening: No symptoms or risk factors identified. Fall Risk IV access (20 points). Total Spencer Fall Scale indicates No Risk (0-24 pts). Assessment: 18:45 General: Appears in no apparent distress. uncomfortable, Behavior is cooperative, jl7 appropriate for age, anxious. Pain: Complains of pain in chest Pain does not radiate. Pain currently is 4 out of 10 on a pain scale. at worst was 6 out of 10 on a pain scale. Quality of pain is described as pressure, Pain began suddenly, Is intermittent. Neuro: Level of Consciousness is awake, alert, obeys commands, Oriented to person, place, time, situation. Cardiovascular: Patient's skin is warm and dry. Rhythm is regular. Respiratory: Airway is patent Respiratory effort is even, labored, Respiratory pattern is symmetrical, tachypnea. GI: Patient currently denies diarrhea, nausea, vomiting. Derm: Skin is pink, warm \T\ dry. 19:15 Reassessment: Patient appears in no apparent distress at this time. Patient and/or jb4 family updated on plan of care and expected duration. Pain level reassessed. Patient is alert, oriented x 3, equal unlabored respirations, skin warm/dry/pink. Given warm blanket and and water per request. Patient states feeling better. 20:15 Reassessment: Patient appears in no apparent distress at this time. Patient and/or jb4 family updated on plan of care and expected duration. Pain level reassessed. Patient is alert, oriented x 3, equal unlabored respirations, skin warm/dry/pink. 21:15 Reassessment: Patient appears in no apparent distress at this time. Patient and/or jb4 family updated on plan of care and expected duration. Pain level reassessed. Patient is alert, oriented x 3, equal unlabored respirations, skin warm/dry/pink. Report called to ROULA Bolden Patient denies pain at this time. Patient states feeling better. Vital Signs: 18:23 BP 148 / 100; Pulse 87; Resp 18; Temp 98.0; Pulse Ox 99% ; Pain 6/10; ll1 18:49 Weight 66.22 kg; ss 18:51 BP 148 / 108; Pulse 83; Resp 24; Pulse Ox 100% ; Pain 4/10; jl7 19:30 BP 151 / 108; Pulse 78; Resp 18; Pulse Ox 95% on R/A; jb4 20:30 BP 153 / 113; Pulse 85; Resp 21; Temp 98.0(O); Pulse Ox 96% on R/A; jb4 21:00 BP 158 / 103; Pulse 81; Resp 13; Pulse Ox 97% ; jb4 ED Course: 18:20 Patient arrived in ED. mr 18:24 Triage completed. ll1 18:25 Arm band placed on. ll1 18:34 Jovi Davis MD is Attending Physician. chantal 18:35 Frankie Aiken RN is Primary Nurse. jl7 18:51 Patient has correct armband on for positive identification. Placed in gown. Bed in low jl7 position. Call light in reach. Side rails up X2. monitoring manager on. Pulse ox on. NIBP on. 18:51 Initial lab(s) drawn, by me, sent to lab. EKG done, by ED staff, reviewed by Jovi Davis MD. Inserted saline lock: 20 gauge in right forearm, using aseptic technique. Blood collected. Patient maintains SpO2 saturation greater than 95% on room air. 18:54 Kimo Yu MD is Hospitalizing Provider. chantal 19:07 Primary Nurse role handed off by Frankie Aiken RN jl7 19:33 Duke Brown, ROULA is Primary Nurse. jb4 19:37 XRAY Chest (1 view) In Process Unspecified. EDMS 21:36 No provider procedures requiring assistance completed. Patient admitted, IV remains in jb4 place. Administered Medications: 18:52 Drug: Zofran (Ondansetron) 4 mg Route: IVP; Site: right forearm; jl7 20:00 Follow up: Response: No adverse reaction jb4 18:52 Drug: Pepcid 20 mg Route: IVP; Site: right forearm; jl7 21:06 Follow up: Response: No adverse reaction jb4 18:56 Drug: morphine 4 mg Route: IVP; Site: right forearm; jl7 20:00 Follow up: Response: No adverse reaction; Pain is decreased; RASS: Alert and Calm (0) jb4 19:00 Drug: Aspirin 162 mg Route: PO; jl7 20:00 Follow up: Response: No adverse reaction jb4 19:00 Drug: Lovenox 1 mg/kg Route: Sub-Q; Site: abdomen; jl7 21:06 Follow up: Response: No adverse reaction [facility] 20:54 Drug: Tylenol 650 mg Route: PO; jb4 21:05 Follow up: Response: No adverse reaction jb4 20:55 Drug: Lasix 20 mg Route: IVP; Site: right forearm; jb4 21:06 Follow up: Response: No adverse reaction jb4 20:55 Drug: Nitro-Bid Ointment 2 % 1 inches Route: Transdermal; Site: anterior chest wall; jb4 21:06 Follow up: Response: No adverse reaction jb4 Outcome: 18:54 Decision to Hospitalize by Provider. chantal 21:36 Admitted to Med/surg accompanied by nurse, via wheelchair, room 229, with chart, Report jb4 called to ROULA Bolden 21:36 Condition: stable 21:36 Discharge instructions given to patient, Instructed on the need for admit, Demonstrated understanding of instructions. 21:37 Patient left the ED. jb4 Signatures: Dispatcher [employer] EDMS Jovi Davis MD MD cha Rivera, Qing Denise Aguiar, RN RN Duke Lanza RN RN jb4 Frankie Aiken RN RN jl7 Alia Gilbert RN RN ll1 Corrections: (The following items were deleted from the chart) 19:01 18:44 Zofran (Ondansetron) 4 mg IVP in right forearm jl7 jl7 19:37 19:15 Reassessment: Patient appears in no apparent distress at this time. Patient jb4 and/or family updated on plan of care and expected duration. Pain level reassessed. Patient is alert, oriented x 3, equal unlabored respirations, skin warm/dry/pink. Patient states feeling better. jb4
--- NOTE | 2019-12-25 20:22 | EDPHYS ---
Physician Documentation [facility] Name: Roby Ortiz Age: 54 yrs Sex: Male : 1965 Arrival Date: 12/25/2019 Time: 18:20 Bed 4 Private MD: RUPINDER Physician Jovi Davis HPI: 12/24 18:47 This 54 yrs old Male presents to ER via Wheelchair with complaints of Chest chantal Pain. 18:47 The patient or guardian reports chest pain that is located primarily in the substernal chantal area, anterior chest wall, bilaterally. Onset: just prior to arrival. The pain does not radiate. Associated signs and symptoms: Pertinent positives: lightheadedness, shortness of breath. The chest pain is described as crushing, a pressure. Modifying factors: The symptoms are alleviated by NTG, X2. the symptoms are aggravated by nothing. Historical: - Allergies: 18:25 PENICILLINS; ll1 - PMHx: 18:25 CHF; COPD; heart transplant list; Hypertension; Myocardial infarction; Pacemaker; ll1 - PSHx: 18:25 pacemaker; ll1 - Immunization history:: Adult Immunizations up to date. - Social history:: Smoking status: Patient/guardian denies using tobacco, Patient/guardian denies using alcohol, tobacco products. - Family history:: not pertinent. ROS: 18:47 Constitutional: Negative for fever, chills, and weight loss, Eyes: Negative for injury, chantal pain, redness, and discharge, ENT: Negative for injury, pain, and discharge, Neck: Negative for injury, pain, and swelling, Respiratory: Negative for shortness of breath, cough, wheezing, and pleuritic chest pain, Abdomen/GI: Negative for abdominal pain, nausea, vomiting, diarrhea, and constipation, Back: Negative for injury and pain, : Negative for injury, bleeding, discharge, and swelling, MS/Extremity: Negative for injury and deformity, Skin: Negative for injury, rash, and discoloration, Neuro: Negative for headache, weakness, numbness, tingling, and seizure, Psych: Negative for depression, anxiety, suicide ideation, homicidal ideation, and hallucinations, Allergy/Immunology: Negative for hives, rash, and allergies, Endocrine: Negative for neck swelling, polydipsia, polyuria, polyphagia, and marked weight changes. 18:47 Cardiovascular: Positive for chest pain. Exam: 18:47 Constitutional: This is a well developed, well nourished patient who is awake, alert, chantal and in no acute distress. Head/Face: Normocephalic, atraumatic. Eyes: Pupils equal round and reactive to light, extra-ocular motions intact. Lids and lashes normal. Conjunctiva and sclera are non-icteric and not injected. Cornea within normal limits. Periorbital areas with no swelling, redness, or edema. ENT: Nares patent. No nasal discharge, no septal abnormalities noted. Tympanic membranes are normal and external auditory canals are clear. Oropharynx with no redness, swelling, or masses, exudates, or evidence of obstruction, uvula midline. Mucous membranes moist. Neck: Trachea midline, no thyromegaly or masses palpated, and no cervical lymphadenopathy. Supple, full range of motion without nuchal rigidity, or vertebral point tenderness. No Meningismus. Chest/axilla: Normal chest wall appearance and motion. Nontender with no deformity. No lesions are appreciated. Cardiovascular: Regular rate and rhythm with a normal S1 and S2. No gallops, murmurs, or rubs. Normal PMI, no JVD. No pulse deficits. Respiratory: Lungs have equal breath sounds bilaterally, clear to auscultation and percussion. No rales, rhonchi or wheezes noted. No increased work of breathing, no retractions or nasal flaring. Abdomen/GI: Soft, non-tender, with normal bowel sounds. No distension or tympany. No guarding or rebound. No evidence of tenderness throughout. Back: No spinal tenderness. No costovertebral tenderness. Full range of motion. Male : Normal genitalia with no discharge or lesions. Skin: Warm, dry with normal turgor. Normal color with no rashes, no lesions, and no evidence of cellulitis. MS/ Extremity: Pulses equal, no cyanosis. Neurovascular intact. Full, normal range of motion. Neuro: Awake and alert, GCS 15, oriented to person, place, time, and situation. Cranial nerves II-XII grossly intact. Motor strength 5/5 in all extremities. Sensory grossly intact. Cerebellar exam normal. Normal gait. Psych: Awake, alert, with orientation to person, place and time. Behavior, mood, and affect are within normal limits. 18:59 ECG was reviewed by the Attending Physician. [facility] Vital Signs: 18:23 BP 148 / 100; Pulse 87; Resp 18; Temp 98.0; Pulse Ox 99% ; Pain 6/10; ll1 18:49 Weight 66.22 kg; ss 18:51 BP 148 / 108; Pulse 83; Resp 24; Pulse Ox 100% ; Pain 4/10; jl7 19:30 BP 151 / 108; Pulse 78; Resp 18; Pulse Ox 95% on R/A; jb4 20:30 BP 153 / 113; Pulse 85; Resp 21; Temp 98.0(O); Pulse Ox 96% on R/A; jb4 21:00 BP 158 / 103; Pulse 81; Resp 13; Pulse Ox 97% ; jb4 MDM: 18:34 Patient medically screened. [facility] 18:50 Data reviewed: vital signs, nurses notes, lab test result(s), EKG, radiologic studies, chantal plain films. 18:50 Differential diagnosis: abnormal EKG, acute myocardial infarction, congestive heart chantal failure costochondritis, hiatal hernia, pulmonary embolus, stable angina, unstable angina. HEART Score: History: Highly Suspicious (2), ECG: Non specific repolarization disturbance / LBTB / PM (1), Age: > 45 and < 65 years (1), Risk Factors: > or = 3 Risk factors for atherosclerotic disease (2), [Hypercholesterolemia] [Hypertension] [+ Family HX]. The patient was given aspirin in the Emergency Department. The patient's deep vein thrombosis risk score was calculated as follows: Total Score: 0. This patient was found to be at low risk for a deep vein thrombosis by using the Well's assessment criteria. The patient's pulmonary embolism risk score was calculated as follows: Total Score: 0-2 points. This patient was found to be at low risk for a pulmonary embolism by using the Well's assessment criteria. YOCASTA Risk Score: 1 - Three or more CAD risk factors, [Family Hx], [HTN], [Elevated Cholesterol], 1- Known CAD, TOTAL SCORE = 2. Data interpreted: laboratory monitor: rate is 87 beats/min, rhythm is normal sinus rhythm, Pulse oximetry: on room air is 99 %. Test interpretation: by ED physician or midlevel provider: ECG, plain radiologic studies. Counseling: I had a detailed discussion with the patient and/or guardian regarding: the historical points, exam findings, and any diagnostic results supporting the discharge/admit diagnosis, the presence of at least one elevated blood pressure reading (>120/80) during this emergency department visit, lab results, the need for further work-up and treatment in the hospital. ED course: odessa pt, wants to stay here, odessa duckworth , agrejaun with plan , will consult dr connelly. 12/24 18:47 Order name: Basic Metabolic Panel; Complete Time: 20:00 [facility] 12/24 18:47 Order name: CBC with Diff; Complete Time: 19:24 [facility] 12/24 18:47 Order name: LFT's; Complete Time: 20:00 [facility] 12/24 18:47 Order name: Magnesium; Complete Time: 20:00 [facility] 12/24 18:47 Order name: NT PRO-BNP; Complete Time: 20:00 [facility] 12/24 18:47 Order name: Troponin (emerg Dept Use Only); Complete Time: 20:00 [facility] 12/24 20:20 Order name: Basic Metabolic Panel [facility] 12/24 20:20 Order name: Basic Metabolic Panel [facility] 12/24 20:20 Order name: CBC with Automated Diff [facility] 12/24 20:20 Order name: CBC with Automated Diff [facility] 12/24 20:20 Order name: Lipid Profile [facility] 12/24 20:20 Order name: Lipid Profile [facility] 12/24 20:20 Order name: Troponin I [facility] 12/24 20:20 Order name: Troponin I [facility] 12/24 18:47 Order name: XRAY Chest (1 view) [facility] 12/24 18:47 Order name: EKG; Complete Time: 18:48 [facility] 12/24 18:47 Order name: Cardiac monitoring; Complete Time: 18:55 [facility] 12/24 20:19 Order name: Heart Healthy [facility] 12/24 20:19 Order name: Echo with Doppler [facility] 12/24 20:20 Order name: EKG Electrocardiogram [facility] 12/24 20:20 Order name: EKG Electrocardiogram [facility] 12/24 20:20 Order name: Troponin I [facility] 12/24 18:47 Order name: EKG - Nurse/Tech; Complete Time: 18:55 [facility] 12/24 18:47 Order name: IV Saline Lock; Complete Time: 18:55 [facility] 12/24 18:47 Order name: Labs collected and sent; Complete Time: 18:55 [facility] 12/24 18:47 Order name: O2 Per Protocol; Complete Time: 18:55 [facility] 12/24 18:47 Order name: O2 Sat Monitoring; Complete Time: 18:55 [facility] EC:59 Rate is 76 beats/min. QRS Edmond is Normal. CA interval is shortened at 104 msec. QRS chantal interval is normal. QT interval is normal. No Q waves. T waves are Normal. ST Segment is depressed in leads II, III, aVF, V4, V5, V6. Clinical impression: NSR w/ Non-specific ST/T Changes. Interpreted by me. Reviewed by me. Administered Medications: 18:52 Drug: Zofran (Ondansetron) 4 mg Route: IVP; Site: right forearm; jl7 20:00 Follow up: Response: No adverse reaction jb4 18:52 Drug: Pepcid 20 mg Route: IVP; Site: right forearm; jl7 21:06 Follow up: Response: No adverse reaction jb4 18:56 Drug: morphine 4 mg Route: IVP; Site: right forearm; jl7 20:00 Follow up: Response: No adverse reaction; Pain is decreased; RASS: Alert and Calm (0) jb4 19:00 Drug: Aspirin 162 mg Route: PO; jl7 20:00 Follow up: Response: No adverse reaction jb4 19:00 Drug: Lovenox 1 mg/kg Route: Sub-Q; Site: abdomen; jl7 21:06 Follow up: Response: No adverse reaction jb4 20:54 Drug: Tylenol 650 mg Route: PO; jb4 21:05 Follow up: Response: No adverse reaction jb4 20:55 Drug: Lasix 20 mg Route: IVP; Site: right forearm; jb4 21:06 Follow up: Response: No adverse reaction jb4 20:55 Drug: Nitro-Bid Ointment 2 % 1 inches Route: Transdermal; Site: anterior chest wall; jb4 21:06 Follow up: Response: No adverse reaction jb4 Disposition: 12/25/19 18:54 Hospitalization ordered by Kimo Duckworth for Observation. Preliminary diagnosis are Other chest pain, Dyspnea - increased hilar adenopathy, Angina pectoris, Unspecified kidney failure - insufficency, Unspecified combined systolic (congestive) and diastolic (congestive) heart failure. - Bed requested for Telemetry/GooseChaserg (observation). - Status is Observation. jb4 - Condition is Stable. - Problem is new. - Symptoms have improved. Signatures: Dispatcher [employer] EDJovi Hidalgo MD MD cha Bryson, James, RN RN jb4 Frankie Aiken RN RN jl7 Jd, Humaira mt Alia Gilbert RN RN ll1 Corrections: (The following items were deleted from the chart) 19:33 18:54 Hospitalization Ordered by Kimo Duckworth MD for Observation. Preliminary chantal diagnosis is Other chest pain; Dyspnea; Angina pectoris. Bed requested for Telemetry/MedSurg (observation). Status is Observation. Condition is Stable. Problem is new. Symptoms have improved. [facility] 20:02 19:33 12/25/2019 18:54 Hospitalization Ordered by Kimo Duckworth MD for Observation. chantal Preliminary diagnosis is Other chest pain; Dyspnea - increased hilar adenopathy; Angina pectoris. Bed requested for Telemetry/MedSurg (observation). Status is Observation. Condition is Stable. Problem is new. Symptoms have improved. [facility] 20:29 20:02 12/25/2019 18:54 Hospitalization Ordered by Kimo Duckworth MD for Observation. nc Preliminary diagnosis is Other chest pain; Dyspnea - increased hilar adenopathy; Angina pectoris; Unspecified kidney failure - insufficency; Unspecified combined systolic (congestive) and diastolic (congestive) heart failure. Bed requested for Telemetry/MedSurg (observation). Status is Observation. Condition is Stable. Problem is new. Symptoms have improved. [facility] 21:37 20:29 12/25/2019 18:54 Hospitalization Ordered by Kimo Duckworth MD for Observation. jb4 Preliminary diagnosis is Other chest pain; Dyspnea - increased hilar adenopathy; Angina pectoris; Unspecified kidney failure - insufficency; Unspecified combined systolic (congestive) and diastolic (congestive) heart failure. Bed requested for Telemetry/MedSurg (observation). Status is Observation. Condition is Stable. Problem is new. Symptoms have improved. mt
[2019-12-25] MEDS ORDERED: FUROSEMIDE 20 MG/ 2ML VIAL ONE (20:45)
[2019-12-25] MEDS ORDERED: NITROGLYCERIN 1 GM PKT TD ONE (20:45)
[2019-12-25] MEDS ORDERED: ACETAMINOPHEN 325 MG TABLET ONE (20:46)
[2019-12-25] MEDS: METOPROLOL TAR 50 MG TAB PO SCH (21:00)
[2019-12-25] MEDS: predniSONE 10 MG TAB PO SCH (21:00)
[2019-12-26 01:23] VITALS: O2SAT 96
[2019-12-26] MEDS ORDERED: FUROSEMIDE 20 MG/ 2ML VIAL IV ONE (06:41)
[2019-12-26 06:51] LABS: Absolute Lymphocytes (CBC) 0.8 K/uL (0.7-4.9); Hematocrit 48.1 % (39.6-49.0); Lymphocytes % 10.9 % (15.3-44.8); MPV 9.4 fL (7.6-11.3); RBC Red Blood Cell Count 5.22 M/uL (4.33-5.43)
[2019-12-26 07:14] LABS: BUN Blood Urea Nitrogen 24 mg/dL (7-18); Bicarbonate 25 mmol/L (21-32); Glucose Level 100 mg/dL (74-106); Potassium 4.4 mmol/L (3.5-5.1); Sodium Level 136 mmol/L (136-145); Troponin I < 0.02 ng/mL (0.0-0.045)
[2019-12-26] MEDS: predniSONE 10 MG TAB PO SCH (08:36)
[2019-12-26] MEDS: METOPROLOL TAR 50 MG TAB PO SCH (08:37)
[2019-12-26 08:38] VITALS: BP 154/99
[2019-12-26] MEDS ORDERED: ENOXAPARIN 40 MG/0.4 ML SQ SCH (09:00)
[2019-12-26] MEDS ORDERED: ASPIRIN EC 81 MG TAB PO SCH (09:00)
[2019-12-26 09:53] VITALS: TEMP 97.2
--- NOTE | 2019-12-26 16:27 | P.HP ---
Certification for Inpatient Patient admitted to: Observation With expected LOS: <2 Midnights Patient will require the following post-hospital care: None Practitioner: I am a practitioner with admitting privileges, knowledge of patient current condition, hospital course, and medical plan of care. Services: Services provided to patient in accordance with Admission requirements found in Title 42 Section 412.3 of the Code of Federal Regulations Patient History Date of Service: 12/25/19 Reason for admission: Chest pain rule out acute coronary syndrome History of Present Illness: patient is a 54-year-old gentleman who came to the hospital with chest discomfort. Pain was mainly the sternal region. He had taken a nitro and his pain was much better. He said he was defibrillated by his defibrillator 48 hours ago. He says this has happened 3 different occasions. He has an ejection fraction of roughly 10%. He follows up with his medical economics consultant regularly. Has a appointment on . Patient will be admitted to the hospital for further evaluation. If his troponins are negative we should be able to discharge him home. Allergies No Known Allergies Allergy (Verified 09/13/18 17:03) Home Medications: Amlodipine [Norvasc*] 10 mg PO DAILY 12/25/19 Atorvastatin Calcium [Lipitor] 40 mg PO BEDTIME 12/25/19 Furosemide [Lasix*] 40 mg PO BID 12/25/19 Ipratropium/Albuterol Sulfate [Combivent Respimat 20-100 Mcg] 1 puff IH QID 12/25/19 Nitroglycerin 0.4 mg SL Q5MX3, Q15MX1, Q30M PRN 12/25/19 carvediloL [Coreg*] 25 mg PO BID 6AM 6PM 12/25/19 - Past Medical/Surgical History Has patient received pneumonia vaccine in the past: Yes Diabetic: No -: Glaucoma -: Hypertension -: COPD -: History of CVA -: Systolic CHF -: Defibrillator pacemaker -: History of tobacco and alcohol abuse -: Hyperlipidemia -: Bilateral tear duct repair -: Left eye cataract extraction with lens replacement -: Pacemaker placement Psychosocial/ Personal History: Patient has a girlfriend. He has 6 children. 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 - Family History Mother Medical History: Heart disease, Cancer Notes: Lymphoma, Leukemia Father Medical History: Heart disease, Cancer Notes: Throat Cancer - Social History Smoking Status: Light Tobacco smoker (1-9 cigarettes/day) Alcohol use: No CD- Drugs: No Caffeine use: Yes Place of Residence: Home Review of Systems 10-point ROS is otherwise unremarkable Physical Examination - Vital Signs Temperature: 97.2 F Blood Pressure: 154/99 Pulse: 80 Respirations: 17 Pulse Ox (%): 99 - Physical Exam General: Alert, In no apparent distress, Oriented x3 HEENT: Atraumatic, PERRLA, Mucous membr. moist/pink, EOMI, Sclerae nonicteric Neck: Supple, 2+ carotid pulse no bruit, No LAD, Without JVD or thyroid abnormality Respiratory: Clear to auscultation bilaterally, Normal air movement Cardiovascular: Regular rate/rhythm, Normal S1 S2, No murmurs Gastrointestinal: Normal bowel sounds, Soft and benign, Non-distended, No tenderness Musculoskeletal: No clubbing, No swelling, No tenderness Integumentary: No rashes Neurological: Normal gait, Normal speech, Normal strength at 5/5 x4 extr, Normal tone, Sensation intact, Cranial nerves 3-12 intact, Normal affect Lymphatics: No axilla or inguinal lymphadenopathy - Studies Laboratory Data (last 24 hrs) 12/25/19 18:55: WBC 7.9, Hgb 15.7, Hct 45.7, Plt Count 224 12/25/19 18:55: Sodium 138, Potassium 4.0, BUN 24 H, Creatinine 1.60 H, Glucose 98, Magnesium 2.1, Total Bilirubin 0.2, AST 14 L, ALT 18, Alkaline Phosphatase 111 Assessment & Plan - Problems (Diagnosis) (1) Chest pain Onset Date: 11/20/16 Status: Acute Qualifiers: Chest pain type: chest pain on breathing Qualified Code(s): R07.1 - Chest pain on breathing; R07.81 - Pleurodynia (2) Essential (primary) hypertension Onset Date: 11/20/16 Status: Acute (3) Tobacco abuse Onset Date: 11/20/16 Status: Acute - Plan 1. Serial troponins and EKG 2. Cardiology consultation 3. Echocardiogram 4. Anti-platelet therapy, anti coagulation, beta-jeniffer, statin, and O2 as needed 5. IV morphine for pain 6. Nitro p.r.n. Discharge Plan: Home Plan to discharge in: Greater than 2 days - Advance Directives Does patient have a Living Will: No Does patient have a Durable POA for Healthcare: No - Code Status/Comfort Care Code Status Assessed: Yes Code Status: Full Code Critical Care: No Time Spent Managing PTS Care (In Minutes): 45
--- NOTE | 2019-12-26 16:36 | P.DS ---
Discharge Date: 12/26/19 Disposition: ROUTINE DISCHARGE Discharge Condition: GOOD Reason for Admission: Chest pain rule out acute coronary syndrome - Problems (1) Chest pain Onset Date: 11/20/16 Status: Acute Qualifiers: Chest pain type: chest pain on breathing Qualified Code(s): R07.1 - Chest pain on breathing; R07.81 - Pleurodynia (2) Essential (primary) hypertension Onset Date: 11/20/16 Status: Acute (3) Tobacco abuse Onset Date: 11/20/16 Status: Acute Brief History of Present Illness: patient is a 54-year-old gentleman who came to the hospital with chest discomfort. Pain was mainly the sternal region. He had taken a nitro and his pain was much better. He said he was defibrillated by his defibrillator 48 hours ago. He says this has happened 3 different occasions. He has an ejection fraction of roughly 10%. He follows up with his open die inspector regularly. Has a appointment on . Patient will be admitted to the hospital for further evaluation. If his troponins are negative we should be able to discharge him home. Hospital Course: Patient states he was doing well and he had cardiology appointment on . He says his cardiology had done most of his testing and he did not need any further testing at this time. He is feeling much better and his chest pain is resolved. He was advised to have his open die inspector notified so he can get his pacemaker interrogated as well. At this time, patient is stable for discharge with outpatient follow-up. Vital Signs/Physical Exam: Temp Pulse Resp BP Pulse Ox 97.2 F 80 17 154/99 H 99 12/26/19 16:35 12/26/19 16:35 12/26/19 16:35 12/26/19 16:35 12/26/19 16:35 General: Alert, In no apparent distress, Oriented x3 Laboratory Data at Discharge: WBC 7.4 K/uL (4.3-10.9) 12/26/19 06:24 Hgb 16.2 g/dL (13.6-17.9) 12/26/19 06:24 Hct 48.1 % (39.6-49.0) 12/26/19 06:24 Plt Count 195 K/uL (152-406) 12/26/19 06:24 Sodium 136 mmol/L (136-145) 12/26/19 06:24 Potassium 4.4 mmol/L (3.5-5.1) 12/26/19 06:24 BUN 24 mg/dL (7-18) H 12/26/19 06:24 Creatinine 1.59 mg/dL (0.55-1.3) H 12/26/19 06:24 Glucose 100 mg/dL (74-106) 12/26/19 06:24 Magnesium 2.1 mg/dL (1.8-2.4) 12/25/19 18:55 Total Bilirubin 0.2 mg/dL (0.2-1.0) 12/25/19 18:55 AST 14 U/L (15-37) L 12/25/19 18:55 ALT 18 U/L (12-78) 12/25/19 18:55 Alkaline Phosphatase 111 U/L (45-117) 12/25/19 18:55 Troponin I < 0.02 ng/mL (0.0-0.045) 12/26/19 06:24 Triglycerides 108 mg/dL (<150) 12/26/19 06:24 Cholesterol 169 mg/dL (<200) 12/26/19 06:24 HDL Cholesterol 65 mg/dL (40-60) H 12/26/19 06:24 Cholesterol/HDL Ratio 2.60 12/26/19 06:24 Home Medications: Amlodipine [Norvasc*] 10 mg PO DAILY 12/25/19 Atorvastatin Calcium [Lipitor] 40 mg PO BEDTIME 12/25/19 Furosemide [Lasix*] 40 mg PO BID 12/25/19 Ipratropium/Albuterol Sulfate [Combivent Respimat 20-100 Mcg] 1 puff IH QID 12/25/19 Nitroglycerin 0.4 mg SL Q5MX3, Q15MX1, Q30M PRN 12/25/19 carvediloL [Coreg*] 25 mg PO BID 6AM 6PM 12/25/19 Patient Discharge Instructions: OK TO DC IV AND DC HOME. FOLLOW-UP WITH PRIMARY CARE PROVIDER IN 1-2 WEEKS. FOLLOW-UP WITH CARDIOLOGY this week. Please notify your Group Activities Aide regarding the need to have defibrillator interrogated. RETURN TO THE ER IF symptoms worsen. CALL DR. CALHOUN AT [phone] IF ANY QUESTIONS REGARDING HOSPITAL STAY. PLEASE CALL THE FLOOR AT [phone] IF ANY MEDICATION OR NURSING QUESTIONS. Diet: AHA Activity: Fall precautions Followup: Omer Braga MD [ACTIVE - CAN ADMIT] - Time spent managing pt's care (in minutes): 15
--- NOTE | 2019-12-26 19:24 | EKG ---
Test Date: 2019-12-26 Test Time: 08:30:26 Leaflet Or Newspaper Deliverer: DESHAUN MEASUREMENT RESULTS: Intervals: Rate: 79 SD: 136 QRSD: 102 QT: 428 QTc: 490 [place]: P: 78 SD: 136 QRS: -21 T: 232 INTERPRETIVE STATEMENTS: Normal sinus rhythm Left ventricular hypertrophy with repolarization abnormality Prolonged QT Abnormal ECG Compared to ECG 12/25/2019 18:44:20 Early repolarization now present Short SD interval no longer present ST (T wave) deviation no longer present Possible ischemia no longer present Electronically Signed On 12-26-19 19:23:54 CDT by Omer Braga
--- NOTE | 2019-12-26 19:27 | EKG ---
Test Date: 2019-12-25 Test Time: 18:44:20 Wildlife Conservation Professor: LORRAINE MEASUREMENT RESULTS: Intervals: Rate: 76 AK: 104 QRSD: 92 QT: 432 QTc: 486 [place]: P: 58 AK: 104 QRS: 9 T: 246 INTERPRETIVE STATEMENTS: Sinus rhythm with short AK Voltage criteria for left ventricular hypertrophy ST & T wave abnormality, consider inferolateral ischemia Prolonged QT Abnormal ECG Compared to ECG 09/11/2019 10:12:45 Short AK interval now present Left ventricular hypertrophy now present ST (T wave) deviation now present Possible ischemia now present Prolonged QT interval now present T-wave abnormality no longer present Electronically Signed On 12-26-19 19:24:13 CDT by Omer Braga
== END 2019-12-26 10:13 | disposition home or self-care (01) ==
LOC: ER 18:17 → ERHOLD 20:06 → 2ND 21:18
PROVIDERS: ADMIT Hospitalist; ATTEND Hospitalist
DX: R07.1 Chest pain on breathing (principal); R07.81 Pleurodynia; E78.5 Hyperlipidemia, unspecified; I11.0 Hypertensive heart disease with heart failure; I50.20 Unspecified systolic (congestive) heart failure; J44.9 Chronic obstructive pulmonary disease, unspecified; I25.2 Old myocardial infarction; F17.210 Nicotine dependence, cigarettes, uncomplicated; Z79.899 Other long term (current) drug therapy; Z95.0 Presence of cardiac pacemaker; Z76.82 Awaiting organ transplant status; Z86.73 Personal history of transient ischemic attack (TIA), and cerebral infarction without residual deficits
CPT/HCPCS: 36415; 71045; 80048; 80061; 80076; 83735; 83880; 84484; 85025; 93005; 96372; 96374; 96375; 99285; G0378; J1650; J1940; J2405; J7512